=== PATIENT | female | born 1940 | race Caucasian/White ===

== ENCOUNTER 2019-04-03 21:56 | Inpatient (IN) | payer MEDICARE, OTHER ==
[~2019-04-03] VITALS: Ht 162.6 cm; Wt 72.6 kg
--- NOTE | 2019-04-03 22:05 | NUR ---
ED Nurse Note: PT WALKED TO ED C/O BCIR MALFUNCTION [id number]. PT STATES SHE HAD FOSTER INSERTED INTO THE BCIR BY A PHYSICIAN IN [place] WHERE SHE CAME FROM. PT REPORTS LAST DRAINING BCIR WITH LIGHT BROWN LIQUID, YESTERDAY AT AROUND NOON. PT REPORTS NO PAIN. PT DOES NOT PRESENT WITH FEVER, NO REDNESS OR IRRITATION AROUND THE SITE.
--- NOTE | 2019-04-03 22:15 | NUR ---
ED Nurse Note: IV ESTABLISHED ON LEFT AC WITH 20G. BLOOD DRAWN AND SENT TO LAB WITH URINE. LINE PATENT AND INTACT.
--- NOTE | 2019-04-03 22:41 | Emergency Room Report ---
History of Present Illness General Chief Complaint: Gastrointestinal Illness Source: Patient Present Illness HPI This is a 78-year-old female with a history of a BCIR surgery done by Dr. Lebron about 25 years ago. She has no problems since then. She presents with chief complaint of problem intubating her Bravo pouch for last 2 weeks. Her naval aircrewman placed a 24 Czech Horne in it. She was recommended to come here to see Dr. Fry for revision. She has no pain. She does have some fullness. No fever chills but no nausea no vomiting. No trauma. No other complaint. Allergies: Coded Allergies: No Known Allergies (Unverified , 04/03/19) Patient History Past Medical History: see triage record, old chart reviewed, other Past Surgical History: other Pertinent Family History: none Social History: Denies: drug use Now: No Immunizations: other Reviewed Nursing Documentation: PMH: Agreed; PSxH: Agreed Review of Systems Eye: Denies: eye pain, blurred vision ENT: Denies: ear pain, nose congestion, throat swelling Respiratory: Denies: cough, shortness of breath Cardiovascular: Denies: chest pain, palpitations Gastrointestinal: Denies: abdominal pain, diarrhea, nausea, vomiting Musculoskeletal: Denies: back pain, joint pain Skin: Denies: rash Neurological: Denies: headache, numbness Endocrine: Denies: increased thirst, increased urine Hematologic/Lymphatic: Denies: easy bruising All Other Systems: negative except mentioned in HPI Physical Exam Vital Signs Date Time Temp Pulse Resp B/P (MAP) Pulse Ox O2 Delivery O2 Flow Rate FiO2 04/03/19 22:00 97.9 93 16 147/96 (113) 97 Room Air Vitals unremarkable Sp02 EP Interpretation: reviewed, normal General Appearance: well appearing, no apparent distress, alert Head: normocephalic, atraumatic Eyes: bilateral eye PERRL, bilateral eye EOMI ENT: hearing grossly normal, normal pharynx Neck: full range of motion, supple, no meningismus Respiratory: chest non-tender, lungs clear, normal breath sounds Cardiovascular #1: regular rate, rhythm, no murmur Gastrointestinal: normal bowel sounds, non tender, no mass, no organomegaly, no bruit, non-distended Musculoskeletal: back normal, normal range of motion, gait/station normal Psychiatric: mood/affect normal Medical Decision Making Diagnostic Impression: Primary Impression: Ileostomy dysfunction ER Course Patient presents with malfunction BCIR. No evidence of any abscess. Vitals otherwise stable. I discussed the case with Dr. Fry who will admit the patient. Last Vital Signs Date Time Temp Pulse Resp B/P (MAP) Pulse Ox O2 Delivery O2 Flow Rate FiO2 04/03/19 22:00 97.9 93 16 147/96 (113) 97 Room Air Status: unchanged Disposition: ADMITTED INPATIENT Condition: Serious Koffi Godinez MD Apr 03, 2019 22:41
[2019-04-03 22:59] VITALS: BP 136/84
[2019-04-03 23:24] LABS: BASOPHILS % (AUTO) 1.3 % (0.0-2.0); EOSINOPHILS % (AUTO) 2.7 % (0.0-3.0); HEMATOCRIT 44.2 % (37.0-47.0); LYMPHOCYTES % (AUTO) 19.5 % (20.0-45.0); MEAN CORPUSCULAR VOLUME 87 FL (80-99); MONOCYTES % (AUTO) 8.4 % (1.0-10.0); NEUTROPHILS % (AUTO) 68.2 % (45.0-75.0); PLATELET COUNT 278 K/UL (150-450); RED BLOOD COUNT 5.09 M/UL (4.20-5.40); RED CELL DISTRIBUTION WIDTH 11.5 % (11.6-14.8); WHITE BLOOD COUNT 8.9 K/UL (4.8-10.8)
[2019-04-03 23:28] LABS: APPEARANCE,URINE SLIGHTLY CLOUDY; BILIRUBIN, URINE NEGATIVE (NEGATIVE); COLOR,URINE BROWN; GLUCOSE, URINE (UA) NEGATIVE (NEGATIVE); KETONES,URINE 2+ (NEGATIVE); LEUKOCYTE ESTERASE ,URINE 3+ (NEGATIVE); NITRITE,URINE POSITIVE (NEGATIVE); PH,URINE 5 (4.5-8.0); PROTEIN,URINE 1+ (NEGATIVE); UROBILINOGEN,URINE 1 MG/DL (0.0-1.0)
--- NOTE | 2019-04-03 23:30 | NUR ---
ED Nurse Note: GAVE REPORT TO LINDA KAPLAN FOR 304-1
--- NOTE | 2019-04-03 23:30 | NUR ---
Mark bravo in EDM - 04/03/19 at 2824 by [email or web address] ED Nurse Note: GAVE REPORT TO LINDA KAPLAN FOR 314-2
--- NOTE | 2019-04-03 23:30 | NUR ---
NURSE NOTES: Received report from EUSEBIO Dleacruz. Pt arrived in the unit via [place] at 2359. Pt is awake, lying semi-raygoza's; comfortably resting. AOx4; able to make needs known. Checked IV site, line, and rate; patent and running. No erythema, bleeding, or infiltration noted. Belongings arrived with pt. at bedside. Pt oriented with the room. Bed at lowest position. Brakes on. Siderails up x2. Call light within reach. Will continue to monitor.
[2019-04-03 23:38] LABS: INR 1.1 (0.9-1.1)
[2019-04-03 23:41] LABS: ANION GAP 10 mmol/L (5-15); BLOOD UREA NITROGEN 12 mg/dL (7-18); CALCIUM 9.1 MG/DL (8.5-10.1); CARBON DIOXIDE 26 MMOL/L (21-32); CHLORIDE 106 MMOL/L (98-107); CREATININE 0.9 MG/DL (0.55-1.30); POTASSIUM 3.8 MMOL/L (3.5-5.1); SODIUM 142 MMOL/L (136-145)
[2019-04-03 23:45] LABS: ALANINE AMINOTRANSFERASE 33 U/L (12-78); ALBUMIN 3.5 G/DL (3.4-5.0); ALBUMIN/GLOBULIN RATIO 1.2 (1.0-2.7); ALKALINE PHOSPHATASE 79 U/L (46-116); ASPARTATE AMINO TRANSFERASE 26 U/L (15-37); BILIRUBIN,TOTAL 0.5 MG/DL (0.2-1.0)
[2019-04-03] MEDS ORDERED: cefTRIAXone 1 GM in D5W 55 ML IVPB ONE (23:45)
--- NOTE | 2019-04-03 23:55 | NUR ---
TRANSFER TO FLOOR: Patient transferred to [facility] via gurney accompanied by marcosn manuel in stable condition as ordered, per dr. York. Report given to Felicita KAPLAN. Belongings sent with patient
[2019-04-04] VITALS (7 sets, daily range): BP systolic 111–150; BP diastolic 60–80
[2019-04-04] MEDS: D5 1/2NS w/KCl 20mEq 1,000 ML IV SCH ×2 (01:33→13:50)
[2019-04-04 05:53] LABS: BASOPHILS % (AUTO) 1.2 % (0.0-2.0); EOSINOPHILS % (AUTO) 2.7 % (0.0-3.0); HEMATOCRIT 39.5 % (37.0-47.0); HEMOGLOBIN 13.8 G/DL (12.0-16.0); MEAN CORPUSCULAR VOLUME 87 FL (80-99); MONOCYTES % (AUTO) 8.7 % (1.0-10.0); NEUTROPHILS % (AUTO) 66.4 % (45.0-75.0); PLATELET COUNT 231 K/UL (150-450); RED BLOOD COUNT 4.54 M/UL (4.20-5.40); RED CELL DISTRIBUTION WIDTH 11.8 % (11.6-14.8); WHITE BLOOD COUNT 8.2 K/UL (4.8-10.8)
[2019-04-04 06:17] LABS: ALANINE AMINOTRANSFERASE 25 U/L (12-78); ALBUMIN 2.9 G/DL (3.4-5.0); ALBUMIN/GLOBULIN RATIO 1.1 (1.0-2.7); ALKALINE PHOSPHATASE 61 U/L (46-116); ANION GAP 7 mmol/L (5-15); ASPARTATE AMINO TRANSFERASE 24 U/L (15-37); BILIRUBIN,TOTAL 0.3 MG/DL (0.2-1.0); BLOOD UREA NITROGEN 7 mg/dL (7-18); CALCIUM 8.8 MG/DL (8.5-10.1); CARBON DIOXIDE 26 MMOL/L (21-32); CHLORIDE 110 MMOL/L (98-107); CREATININE 0.7 MG/DL (0.55-1.30); POTASSIUM 3.9 MMOL/L (3.5-5.1); SODIUM 143 MMOL/L (136-145)
[2019-04-04 07:00] LABS: INR 1.1 (0.9-1.1)
[2019-04-04] MEDS ORDERED: XARELTO10 MG ORAL (07:00)
--- NOTE | 2019-04-04 07:48 | NUR ---
HAND-OFF: Report given to EUSEBIO Morris. Pt is awake and in stable condition. Plan of care endorsed.
--- NOTE | 2019-04-04 07:53 | NUR ---
NURSE NOTES: Patient is in bed awake and able to verbalize needs. Stable. Denies pain or SOB. Breathing is even and unlabored. Patient encouraged to use call light for assistance, verbalized understanding. Ileo draining to bag, will flush q3h and will monitor I&O. Skin is c/d/i. Urine sample sent to lab. Patient is in bed in locked and lowest position with call light within reach. All needs met at this time. WIll continue to monitor.
[2019-04-04 08:43] LABS: APPEARANCE,URINE CLEAR; BILIRUBIN, URINE NEGATIVE (NEGATIVE); COLOR,URINE PALE YELLOW; GLUCOSE, URINE (UA) NEGATIVE (NEGATIVE); KETONES,URINE NEGATIVE (NEGATIVE); LEUKOCYTE ESTERASE ,URINE 1+ (NEGATIVE); NITRITE,URINE NEGATIVE (NEGATIVE); PH,URINE 5 (4.5-8.0); PROTEIN,URINE NEGATIVE (NEGATIVE); UROBILINOGEN,URINE NORMAL MG/DL (0.0-1.0)
[2019-04-04] MEDS: Heparin 5000 units/ml inj SUBQ SCH ×2 (10:26→20:21)
--- NOTE | 2019-04-04 10:26 | General Progress Note ---
Progress Note Progress Note H&P dictated. Admitted from ED last night with malfunctioning Bravo pouch with inability to intubate and some incontinence.. In local hospital in [place] 24 Fr red long inserted and draining stool. She usually intubates 2-3x daily with 30Fr Ann catheter History of Ulcerative Colitis, proctocolectomy, Bravo pouch since 1993. Also history of DVT left leg and IVC filter 10 years ago, anticoagulated ever since lately on Xarelto - last dose 04/01/2019 Also history of left upper lobectomy 2014 for non-small cell lung cancer, now with right lung nodule with needle biopsy 2 weeks ago revealing lung cancer ( had pneumothorax with chest tube removed several days ago). Abdomen soft, non-distended, left paramedial scar, BCIR stoma low in RLQ, no herniae Chronic left leg swelling with recent Duplex showing old clot Imp: Malfunctioning Bravo continent ileostomy with inability to intubate Plan: Schedule for Bravo pouch endoscopy tomorrow Bravo pouch catheter to continuous gravity drainage flush q3h and prn clear liquid diet today Pulmonary evaluation pre-op revision of Bravo pouch Blair York MD Apr 04, 2019 10:26
--- NOTE | 2019-04-04 13:00 | NUR ---
NURSE NOTES: Patient tolerated clear liquid diet. No c/o abdominal pain or discomfort.
--- NOTE | 2019-04-04 18:15 | Consultation ---
DATE OF CONSULTATION: 04/04/2019 PULMONARY CONSULTATION CONSULTING PHYSICIAN: Dk Summers M.D. HISTORY OF PRESENT ILLNESS: This is a very pleasant 78-year-old female who has just arrived to the hospital due to issues with her Bravo pouch. Apparently, she was having difficulty with cannulating it. She was admitted to outside hospital where after endoscopy this was performed. She was decompressed. However, she flew into [place] to have this surgically addressed by Dr. Blair York. The patient has a complicated past history of ulcerative colitis and proctocolectomy. She also has a history of tuf-rhkaz-xxyi carcinoma, status post left upper lobectomy on . She has recently also been found to have a right lung carcinoma due to the finding of a right lung nodule. This was complicated by a pneumothorax with chest tube removal several days ago after needle biopsy. The plans were for surgical resection as this was a stage IB process. The patient reports also that she had a DVT 10 years ago. This was after a flight from [place]. She then failed anticoagulation with Coumadin and had another blood clot in the same left lower extremity. At this time, there was also a pulmonary embolism. An IVC filter was placed and she remained on anticoagulation; however, recently has been switched to the newer novel oral anticoagulants like Xarelto. She has now been off Xarelto now due to issues with her Bravo pouch. PAST MEDICAL HISTORY: Notable for: 1. Ulcerative colitis. 2. Proctocolectomy. 3. Bravo pouch. 4. Left lower extremity DVT, on chronic anticoagulation with Xarelto. 5. History of pulmonary embolism. 6. IVC filter. 7. Left upper lobectomy for CA lung. 8. New right lung nodule diagnosed to be carcinoma. HOME MEDICATIONS/CURRENT MEDICATIONS: Include Rocephin, IV fluids, subcutaneous heparin, and Zofran. ALLERGIES: None noted previously discussed above. PHYSICAL EXAMINATION: GENERAL: Reveals a 78-year-old female. HEENT: Unremarkable. CHEST: Clear breath sounds bilaterally with normal heart sounds. ABDOMEN: Surgical sites are noted. Abdomen is soft. EXTREMITIES: There is 1+ edema over the left lower extremity. VITAL SIGNS: Blood pressure 120/70, heart rate 84, respirations , afebrile. LABORATORY DATA: Lab testing shows a normal CBC and BMP with a glucose of 131. Urinalysis negative, yesterday showed pyuria. Coags are negative. IMAGING STUDIES: None obtained. IMPRESSION: 1. 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 2. History of pulmonary embolism. 3. History of IVC filter. 4. Chronic anticoagulation with Xarelto. 5. History of proctocolectomy. 6. Ulcerative colitis. 7. Bravo pouch with recent issues intubation. 8. History of left lung carcinoma, status post lobectomy. 9. History of recently diagnosed right lung carcinoma, scheduled for resection stage IB. DISCUSSION: The patient is slated for laparotomy for repair of Bravo pouch. At this time, given the presence of her IVC filter, I would advocate not initiating any anticoagulation in anticipation of surgery. DVT prophylaxis with subcutaneous heparin is appropriate. We will request a new venous duplex left lower extremity. Discussed with Dr. York. We will follow as security assurance specialist. She will be scheduled for right lung surgery after her current GI issues resolve, which is appropriate. We will continue to follow as security assurance specialist. Thank you for the consultation. Dk Summers M.D. DR: ARON JOB#: [id number] CC:
--- NOTE | 2019-04-04 18:43 | NUR ---
NURSE NOTES: true ileo: 420cc dark brown liquid output. UO: 1000cc yellow urine. No c/o pain during shift. No c/o nausea or vomiting.
--- NOTE | 2019-04-04 19:22 | NUR ---
HAND-OFF: Report given to Vanda KAPLAN. patient is stable.
--- NOTE | 2019-04-04 19:41 | NUR ---
NURSES NOTE: Pt in bed, A/OX4, at bedside. Patient denies pain currently. No outward s/s of distress noted. Breathing pattern is even and unlabored on RA. Ileo, RLQ, patent, draining to gravity. IV JARED intact, infusing IVF without incident. All due meds will be given. Bed at lowest level, call light within reach. Patient will continue to be monitored.
--- NOTE | 2019-04-05 | Pre-op HX & Phy Repo 2 SIG ---
DATE OF ADMISSION from EMERGENGY DEPARTMENT : 04/03/2019 HISTORY OF PRESENT ILLNESS: The patient admitted with a malfunctioning Bravo continent ileostomy and inability to intubate her pouch to evacuate stool. The patient is a 78-year-old female in overall stable health, who had an original diagnosis of ulcerative colitis and many years ago underwent proctocolectomy and then creation of a Bravo continent ileostomy. All the operations will be listed at the end of this dictation. The patient usually intubates her pouch two to three times a day using a 30-Slovak Ann catheter. She has had rare episodes of pouchitis treated with Cipro or Flagyl. In the past week, the patient had sudden inability to catheterize her pouch. She required admission locally where she lives in [place], underwent two pouch endoscopies and finally a 24-Slovak red Wood catheter was inserted and taped in place. She then came here on an emergency basis because there is no treating physician near her with expertise in the Bravo continent ileostomy procedure. The patient has gone several days without being able to catheterize and during that time she has had some incontinence of stool and gas. PAST MEDICAL HISTORY: MEDICATIONS: Xarelto. ALLERGIES: None. OPERATIONS: 1. Abdominal colectomy with Madison ileostomy and total abdominal hysterectomy in 1983. 2. Abdominoperineal proctectomy in 1985. 3. Bravo continent ileostomy in 1993. 4. Left total knee replacement 1999. 5. Left lower lobectomy for non-small cell carcinoma of the lung 2014. 6. Needle biopsy of right upper lobe lung lesion two weeks ago with resulting pneumothorax and chest tube insertion with findings of stage IB carcinoma of the lung. REVIEW OF SYSTEMS: In 2009, the patient developed deep vein thrombosis of the left leg following a prolonged airplane flight and required an placement of inferior vena cava filter. She was anticoagulated with Coumadin and then later Xarelto and has been on anticoagulation continuously for the past 10 years. She has mild chronic post-phlebitic changes in the left leg. . PHYSICAL EXAMINATION: GENERAL: The patient is 5 feet 5 inches, 145 pounds. VITAL SIGNS: Within normal limits . HEENT: Within normal limits. LUNGS: Clear. HEART: Regular rhythm. BREASTS: Without masses. ABDOMEN: Soft with a long left paramedian scar. The stoma of her Bravo pouch is low in the right lower quadrant with a small 24-Slovak catheter in place, connected to a drainage bag. There is an incisional hernia just above the umbilicus. PELVIC: By primary care physicians recently, status post hysterectomy. RECTAL: Status post proctectomy. EXTREMITIES: Mild chronic edema of the left lower extremity. Pulses 2+ femoral to pedal bilaterally. NEUROLOGIC: Physiologic. ADDITIONAL INFORMATION: The patient's urinalysis reveals an obvious urinary tract infection. Culture was sent. The patient received 1 gram of Rocephin IV in the emergency room. Her albumin is 2.9, indicating malnutrition. IMPRESSION: 1. Malfunctioning Bravo continent ileostomy with inability to catheterize resulting in bowel obstruction. 2. History of ulcerative colitis. 3. 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 4. History of ulcerative colitis. 5. Urinary tract infection on admission . 6. Status post left total knee replacement. 7. STATUS POST MULTIPLE ABDOMINAL OPERATIONS: 1. Abdominal colectomy and Madison ileostomy and total abdominal hysterectomy in 1983. 2. Abdominoperineal proctectomy in 1985. 3. Bravo continent ileostomy in 1993. 8. History of non-small cell carcinoma left lung and left upper lobectomy 2014 9. Recent diagnosis of right upper lobe lung carcinoma, stage IB. PLAN: The patient will have her catheter placed to continuous drainage and she will be prepared for a Bravo pouch endoscopy. She will then need to undergo surgical correction of whatever the underlying cause is of her inability to catheterize. I have discussed this in detail with the patient and her . They understands and agreed to proceed. I will have pulmonary consultation regarding her lung condition and her anticoagulation. The Xarelto was last taken 4 days ago and will be held because of pending surgery. She will be given heparin 5000 units subcutaneous every 12 hours. Blair York M.D. DR: Josefa JOB#: [id number] CC: VIVIANE
[2019-04-05] MEDS: D5 1/2NS w/KCl 20mEq 1,000 ML IV SCH ×2 (03:30→15:46)
[2019-04-05 04:00] VITALS: BP 135/69
[2019-04-05] MEDS ORDERED: Heparin1,000 units/500ml Premix(Conc:2 units/ml) ONE (07:00)
[2019-04-05] MEDS ORDERED: Lidocaine 1% Plain 30 ml INJ ONE (07:00)
--- NOTE | 2019-04-05 07:30 | NUR ---
NURSE NOTES: Patient is in bed awake and able to verbalize needs. Stable. Denies pain or SOB. Venous duplex is being done at bedside. Will continue to monitor.
--- NOTE | 2019-04-05 07:44 | NUR ---
LEXA SPRING: Report given to EUSEBIO Morris. Patient in stable condition.
[2019-04-05] MEDS ORDERED: Lidocaine 1% Plain 30 ml INJ PRN (07:45)
[2019-04-05] MEDS ORDERED: Heparin1,000 units/500ml Premix(Conc:2 units/ml) IV PRN (07:45)
[2019-04-05 08:00] VITALS: BP 140/71
[2019-04-05] MEDS: Heparin 5000 units/ml inj SUBQ SCH ×2 (08:58→20:37)
--- NOTE | 2019-04-05 09:40 | NUR ---
NURSE NOTES: Venous duplex results reported to Dr. York. Per Dr. York, Dr. Summers is aware and will give new orders as necessary. Patient is stable, no SOB or chest pain noted at this time. Andrei legs elevated. Will continue to monitor.
--- NOTE | 2019-04-05 10:45 | NUR ---
NURSE NOTES: Patient taken for cxr via wheelchair.
--- NOTE | 2019-04-05 11:33 | Pre-Procedure Note/Attestation ---
Pre-Procedure Note/Attestation Complete Prior to Procedure Planned Procedure: not applicable Procedure Narrative: Bravo continent ileostomy pouch endoscopy Indications for Procedure Pre-Operative Diagnosis: malfunctioning Bravo continent ileostomy with inability to intubate Attestation I attest that I discussed the nature of the procedure; its benefits; risks and complications; and alternatives (and the risks and benefits of such alternatives ), prior to the procedure, with the patient (or the patient's legal surgical device sales representative). I attest that, if there was a reasonable possibility of needing a blood transfusion, the patient (or the patient's legal surgical device sales representative) was given the [facility] standardized written summary, pursuant to the Anastacio Merrillan Blood Safety Act ([place] Health and Safety Code # 1645, as amended). I attest that I re-evaluated the patient just prior to the surgery and that there has been no change in the patient's H&P, except as documented below: none Blair York MD Apr 05, 2019 11:33
--- NOTE | 2019-04-05 11:51 | Diagnostic Imaging Report ---
Indication:Leg pain and swelling Technique: Grayscale and duplex Doppler imaging of the veins in both lower extremities performed in real time utilizing compression and augmentation. Comparison: None Findings: There is evidence of noncompressibility of the popliteal vein bilaterally consistent with thrombosis. Duplex Doppler interrogation of the veins in both lower extremities otherwise shows normal venous compressibility. No thrombus identified otherwise. Waveform analysis shows good respiratory phasicity and augmentation. IMPRESSION: Positive study. Acute thrombosis of popliteal vein bilaterally
[2019-04-05 12:00] VITALS: BP 118/76
--- NOTE | 2019-04-05 12:30 | NUR ---
RADIOLOGY DEPT., CHEST X-RAY COMPLETED.-P.DYE
--- NOTE | 2019-04-05 13:54 | Diagnostic Imaging Report ---
Indication: Cough. History of the recent right pneumothorax after biopsy of a upper lobe lung mass. History of partial left lobectomy. Comparison: None 2 views of the chest obtained. Findings: No pneumothorax seen currently. There is a nodular ill-defined opacity in the right upper lobe corresponding to the history of a lung mass. On the left there are sutures in the medial part of the lung consistent with previous lobectomy. The left hemidiaphragm is obscured by pleural tenting and blunting of the costophrenic angle. A pleural effusion is not excludable on the left although the findings could be chronic and due to pleural thickening. The lungs may be slightly hyperexpanded. Heart size is normal. No compelling evidence for infiltrate or consolidation. No evidence of pulmonary edema. Aorta is calcified and mildly ectatic. Trace amount of air noted in the right chest wall consistent with the given history of recent chest tube placement. Generalized osteopenia noted. Multilevel vertebral endplate enthesophytes demonstrated throughout the thoracic spine. IMPRESSION: No compelling evidence of pneumonia, CHF or other acute process. Small left pleural effusion is not excludable although the findings could be due to pleural thickening as the patient has had prior left thoracotomy/partial lobectomy. Status post recent biopsy of a right upper lobe lung mass. No pneumothorax. Osteoporosis. Atherosclerotic vascular disease Degenerative changes of the thoracic spine Findings reviewed and discussed with Dr. Blair York
--- NOTE | 2019-04-05 14:15 | Brief Operative Note ---
Immediate Post Operative Note Operative Note Pre-op Diagnosis: malfunctioning Bravo continent ileostomy with inability to intubate Procedure: Bravo pouch endoscopy Post-op Diagnosis: slipped valve of Bravo pouch Post-op Diagnosis: same as pre-op Findings: consistent w/pre-op dx studies Surgeon: connie Anesthesia: other - none Specimen: none Complications: none Condition: stable Fluids: none Estimated Blood Loss: none Drains: other - 24 Fr Horne to Bravo pouch Implant(s) used?: No Blair York MD Apr 05, 2019 14:15
--- NOTE | 2019-04-05 14:18 | General Progress Note ---
Progress Note Progress Note AVSS Duplex scanj reveals bilateral popliteal vein thrombus. Seen by Dr. Summers - since there is IVC filter will continue SQ heparin until able to resume Xarelto post-op Abdomen soft, incisional hernia just above umbilicus Bravo pouch endoscopy reveals desussception of the nipple valve, normal pouch Imp: Bravo pouch slipped valve Malnutrition present on admission (albumin 2.9) Plan: Prepare for surgery on 04/08 TPN continuous drainage of Bravo Pouch Bliar York MD Apr 05, 2019 14:18
--- NOTE | 2019-04-05 15:26 | NUR ---
NURSE NOTES: Patient arrived back on unit via gurney. Assisted back to bed by staff. Patient is stable. C/o headache and anxiety, new orders from Dr. York read back and carried out for tramadol and xanax. PICC line noted on JARED, dressing stained with blood. 24fr genao noted in BCIR, dressing is c/d/i. Patient is in bed in locked and lowest position with call light within reach. All needs met at this time. Will continue to monitor.
--- NOTE | 2019-04-05 15:41 | NUR ---
RADIOLOGY NOTE: LEFT UPPER EXTREMITY PICC LINE PLACEMENT BY DR. JET ELIAS AT 1440 HRS. FA
[2019-04-05] MEDS ORDERED: traMADol 50mg tab ORAL PRN (15:45)
[2019-04-05] MEDS ORDERED: ALPRAZolam 0.5mg tab ORAL PRN (15:45)
--- NOTE | 2019-04-05 15:57 | Diagnostic Imaging Report ---
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 The left upper extremity was prepped with alcohol. All elements of maximal sterile barrier technique were followed including usage of a cap, mask, sterile gown, sterile gloves, hand hygiene and a large sterile sheet. Sonographic evaluation of the upper extremity was performed demonstrating a patent and compressible basilic vein. Access was obtained under real-time ultrasound guidance (with utilization of sterile gel and sterile probe cover) and digital image was saved and archived. An .018 wire was introduced. Needle exchanged for a 5 Taiwanese peel-away sheath. Measurements were obtained. A 5 Taiwanese dual-lumen Power PICC line catheter was cut to 40 cm and introduced over the wire. Initial attempts at passing the catheter over the wire were unsuccessful. A 4 Taiwanese Kumpe catheter was then advanced over the wire. Contrast was injected and a central venogram was performed utilizing digital subtraction. A markedly tortuous left innominate vein was noted. The Kumpe catheter was utilized to associate the wire into the SVC. Catheter was then removed and exchanged for the PICC line. Peel-away sheath and wire were removed.Catheter was secured to the skin using 2-0 Prolene suture. Both ports aspirate and flush easily. A single fluoroscopic image shows the distal tip in the superior vena cava. Total fluoroscopic time: 448 seconds. Impression: Successful placement of an upper extremity PICC line catheter
[2019-04-05 16:00] VITALS: BP 134/83
--- NOTE | 2019-04-05 16:03 | Pulmonology Progress Note ---
Assessment/Plan Assessment/Plan IMPRESSION: 1. 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 2. History of pulmonary embolism. 3. History of IVC filter. 4. Chronic anticoagulation with Xarelto. 5. History of proctocolectomy. 6. Ulcerative colitis. 7. Bravo pouch with recent issues intubation. 8. History of left lung carcinoma, status post lobectomy. 9. History of recently diagnosed right lung carcinoma, scheduled for resection stage IB. DISCUSSION: The patient is slated for laparotomy for repair of Bravo pouch. At this time, given the presence of her IVC filter, I would advocate not initiating full anticoagulation in anticipation of surgery. DVT prophylaxis with subcutaneous heparin is appropriate. I have reviewed the new venous duplex left lower extremity. Discussed with Dr. York. 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 She will be scheduled for right lung surgery after her current GI issues resolve, which is appropriate. Thank you for the consultation. Dk Summers M.D. Subjective Interval Events: None new Constitutional: Reports: no symptoms HEENT: Repors: no symptoms Respiratory: Reports: no symptoms Cardiovascular: Reports: no symptoms Gastrointestinal/Abdominal: Reports: no symptoms Allergies: Coded Allergies: No Known Allergies (Unverified , 04/03/19) Objective Last 24 Hour Vital Signs Date Time Temp Pulse Resp B/P (MAP) Pulse Ox O2 Delivery O2 Flow Rate FiO2 04/05/19 12:00 97.7 83 18 118/76 (90) 96 04/05/19 09:00 Room Air 04/05/19 08:00 98.4 85 19 140/71 (94) 98 04/05/19 04:00 98.3 76 18 135/69 (91) 96 04/04/19 23:48 98.2 74 18 111/62 (78) 95 04/04/19 21:00 Room Air 04/04/19 20:00 98.2 80 17 131/62 (85) 96 Intake and Output 04/04/19 04/05/19 19:00 07:00 Intake Total 525 ml Output Total 1420 ml 920 ml Balance -895 ml -920 ml IV Total 525 ml Output Urine Total 1000 ml 800 ml Other 420 ml 120 ml # Voids 3 General Appearance: no acute distress HEENT: normocephalic Respiratory/Chest: chest wall non-tender Cardiovascular: normal peripheral pulses Abdomen: normal bowel sounds Microbiology Date/Time Source Procedure Growth Status 04/03/19 22:20 Urine,Clean Catch Urine Culture - Preliminary NO GROWTH AFTER 24 HOURS Resulted Current Medications Medications (Trade) Dose Ordered Sig/Jayshree Route PRN Reason Start Time Stop Time Status Last Admin Dose Admin Alprazolam (Xanax) 0.5 mg Q6H PRN ORAL For Anxiety 04/05/19 15:45 04/12/19 15:44 Amino Acids/ Electrolytes/ Dextrose 2,000 ml @ 83 mls/hr Q24H IV 04/05/19 21:00 05/05/19 20:59 UNV Chlorhexidine Gluconate (Michelle-Hex 2%) 1 applic DAILY@2000 TOPIC 04/05/19 20:00 05/05/19 19:59 Dextrose 1,000 ml @ 0 mls/hr Q24H PRN IV PN interrupted or unavailable 04/05/19 13:45 05/05/19 13:44 UNV Dextrose (Dextrose 50%) 25 ml Q30M PRN IV Hypoglycemia 04/05/19 13:45 05/05/19 13:44 UNV Dextrose (Dextrose 50%) 50 ml Q30M PRN IV Hypoglycemia 04/05/19 13:45 05/05/19 13:44 UNV Dextrose/ Electrolytes 1,000 ml @ 75 mls/hr [id number] IV 04/04/19 00:00 05/04/19 00:00 04/05/19 15:46 Fat Emulsion Intravenous 250 ml @ 10.4 mls/hr Q24H IV 04/05/19 21:00 05/05/19 20:59 UNV Heparin Sodium (Porcine) (Heparin 5000 units/ml) 5,000 units EVERY 12 HOURS SUBQ 04/04/19 10:15 05/04/19 10:14 04/05/19 08:58 Heparin Sodium/ Sodium Chloride (Heparin 1000 units/500ml Premix) 1,000 unit ONCE PRN IV PICC LINE 04/05/19 07:45 04/07/19 18:00 Insulin Aspart (NovoLOG) Q6HR SUBQ 04/06/19 00:00 05/06/19 00:00 UNV Lidocaine HCl (Xylocaine 1% 30ml) 30 ml ONCE PRN INJ PICC LINE 04/05/19 07:45 04/07/19 18:00 Ondansetron HCl (Zofran) 4 mg Q4HR PRN IVP Nausea & Vomiting 04/03/19 23:45 05/03/19 23:44 Phytonadione (Vitamin K) 10 mg ONCE A WEEK SUBQ 04/05/19 13:45 05/05/19 13:44 UNV Tramadol HCl (Ultram) 50 mg Q4H PRN ORAL pain or headache 04/05/19 15:45 04/12/19 15:44 04/05/19 15:40 Dk Summers MD Apr 05, 2019 16:02
--- NOTE | 2019-04-05 16:48 | NUR ---
CASE MANAGEMENT: INITIAL REVIEW 78YR OLD MALE FROM HOME CC: GASTROINTESTINAL ILLNESS SI:ILEOSTOMY DYSFUNCTION . MALFUNCTION MARTINEZ POUCH 97.8 93 16 147/96 97% ON RA PT 11.6 BG 122 IS:IVF NS BOLUS X1 IV ROCEPHIN X1 \: 3E MED SURG UNIT CASE MANAGEMENT: REVIEW 04/04/19 SI:ILEOSTOMY DYSFUNCTION . MALFUNCTION MARTINEZ POUCH 97.6 77 18 127/69 97% ON RA CL-110 BG 131 IS:IV D5@75ML/HR HEPARIN SQ BID ULTRAM Q4HR/PRN \: 3E MED SURG UNIT PLAN: MARTINEZ POUCH ENDOSCOPY IN AM MARTINEZ POUCH CATHETER TO CONTINUOUS GRAVITY DRAINAGE FLUSH Q3HR AND PRN CLEAT LIQ DIET TODAY PULMONARY EVAL PRE OP REVISION OF MARTINEZ POUCH CASE MANAGEMENT: REVIEW 04/05/19 SI:ILEOSTOMY DYSFUNCTION . MALFUNCTION MARTINEZ POUCH 98.4 85 19 140/71 98% ON RA IS:IV D5@75ML/HR HEPARIN SQ BID ULTRAM Q4HR/PRN \: 3E MED SURG UNIT PLAN: SURG 04/08/19 START TPN MARTINEZ POUCH ENDOSCOPY TODAY CONTINUOUS DRAINAGE OF MARTINEZ POUCH Addendum: 04/06/19 at 1332 by JUAN C ARAUZ LVN INTERQUAL
--- NOTE | 2019-04-05 18:30 | Procedure Note ---
DATE OF PROCEDURE: 04/05/2019 ENDOSCOPY PROCEDURE REPORT ENDOSCOPIST: Blair York M.D. ANESTHESIA: None. SEDATION: None. PRE-ENDOSCOPY DIAGNOSES: 1. 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 2. History of ulcerative colitis, status post proctocolectomy followed Bravo continent ileostomy. POST-ENDOSCOPY DIAGNOSES: 1. 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 2. History of ulcerative colitis, status post proctocolectomy followed Bravo continent ileostomy. ENDOSCOPY PERFORMED: Bravo continent ileostomy pouch endoscopy FINDINGS: Dessusception of nipple valve. DESCRIPTION OF PROCEDURE: The patient was positioned supine in the GI lab without any anesthesia or sedation given or required. Using a GIF-P140 endoscope, the stoma was entered. There were several marked angulations within the valve segment until the pouch was finally entered. The pouch was normal without any sign of inflammation. Retroflexed views revealed a partially slipped valve. Withdrawal views confirmed the above findings. After removing the endoscope, I was not able to insert a 28-Bangladeshi or 26-Bangladeshi Horne into the pouch, but did insert a 24-Bangladeshi Horne to drainage. The patient will be prepared for surgical revision including laparotomy and possible creation of a new valve and stoma with preservation of the existing Bravo continent ileostomy pouch. She tolerated the endoscopy well. Blair York M.D. DR: EVARISTO JOB#: [id number] CC: VIVIANE
--- NOTE | 2019-04-05 19:00 | NUR ---
NURSE NOTES: True ileo: 660cc dark brown output. UO: 725cc yellow urine. Patient was reminded of updated plan of care after endoscopy but patient and patient's are requesting to know more details. Patient's made aware that Dr. York will be able to answer his questions for him. RN addressed as many questions and concerns as possible. RN reassured patient and that Dr. York is available via office number or in person tomorrow if needed.
--- NOTE | 2019-04-05 19:30 | NUR ---
NURSE NOTES: Receive a report from EUSEBIO Morris. Round is done. Pt is awake and alert. No acute distress noted. Denies any pain. PICC site is clear with patch inside. No discoloration noted. L/E non-pitting edema noted and no pain noted. Heparin q 12hr for DVT. No bleeding signs noted. Ileostomy is drained with brownish drainage in natural gravity and q3hr flushing. Dressing site kept dry and clean. Using bedside comode and provide fall precautions. Call light within reach. Will continue to monitor.
--- NOTE | 2019-04-05 19:30 | NUR ---
HAND-OFF: Report given to Berto RN. Patient is stable.
[2019-04-05 20:00] VITALS: BP 114/67
[2019-04-05] MEDS ORDERED: Dextrose 10% 1,000 ML IV PRN (20:00)
[2019-04-05] MEDS: Dyna-Hex 2% Top Sol 2oz TOPIC SCH (20:36)
[2019-04-05] MEDS ORDERED: Fat Emulsion Iv 20% 250 ML IV SCH (21:00)
[2019-04-06] VITALS: BP 119/66
[2019-04-06] MEDS: D5 1/2NS w/KCl 20mEq 1,000 ML IV SCH ×2 (03:29→20:22)
[2019-04-06 04:00] VITALS: BP 138/84
--- NOTE | 2019-04-06 06:00 | NUR ---
NURSE NOTES: No abdominal discomfort. Ileostomy is drained with greenish drainage in natural gravity. Will continue to monitor. 12hr output Urine:1100ml Ileostomy: 360ml
--- NOTE | 2019-04-06 07:20 | NUR ---
HAND-OFF: Report given to EUSEBIO Bravo.
[2019-04-06 07:41] LABS: BASOPHILS % (AUTO) 1.2 % (0.0-2.0); EOSINOPHILS % (AUTO) 2.6 % (0.0-3.0); HEMOGLOBIN 13.7 G/DL (12.0-16.0); LYMPHOCYTES % (AUTO) 20.3 % (20.0-45.0); MEAN CORPUSCULAR VOLUME 87 FL (80-99); MONOCYTES % (AUTO) 7.2 % (1.0-10.0); NEUTROPHILS % (AUTO) 68.7 % (45.0-75.0); PLATELET COUNT 186 K/UL (150-450); RED BLOOD COUNT 4.59 M/UL (4.20-5.40); RED CELL DISTRIBUTION WIDTH 11.8 % (11.6-14.8)
--- NOTE | 2019-04-06 07:42 | NUR ---
NURSE NOTES: AWAKE /ALERT. NO C/O PAIN. IN NO APPARENT DISTRESS.
[2019-04-06 07:51] LABS: ALANINE AMINOTRANSFERASE 28 U/L (12-78); ALBUMIN 2.8 G/DL (3.4-5.0); ANION GAP 6 mmol/L (5-15); ASPARTATE AMINO TRANSFERASE 22 U/L (15-37); CALCIUM 8.6 MG/DL (8.5-10.1); CARBON DIOXIDE 25 MMOL/L (21-32); CHLORIDE 111 MMOL/L (98-107); CREATININE 0.6 MG/DL (0.55-1.30); PHOSPHORUS 3.6 MG/DL (2.5-4.9); SODIUM 142 MMOL/L (136-145)
[2019-04-06 07:52] LABS: % IRON SATURATION 38 % (15-50); IRON 78 ug/dL (50-175); TOTAL IRON BINDING CAPACITY 203 ug/dL (250-450)
[2019-04-06 08:00] VITALS: BP 138/77
[2019-04-06] MEDS ORDERED: Omnipaque-300 100ml vial INJ PRN (08:15)
--- NOTE | 2019-04-06 08:24 | General Progress Note ---
Progress Note Progress Note AVSS BCIR ileo catheter draining well Abdomen soft, incisional hernia above umbilicus Urine C&S from ED - no growth, and U/A clear (had 1 dose Rocephin but culture sent before it was given) Iron 78 other labs pending albumin 2.8 Imp: Malfunctioning Bravo Pouch with slipped valve Malnutrition Incisional hernia Plan: CT scan abd+pelvis with po+IV contrast Schedule surgical revision of BCIR TPN Blair Zamudio MD Apr 06, 2019 08:24
[2019-04-06 08:46] LABS: FERRITIN 44 NG/ML (8-388)
[2019-04-06] MEDS: Heparin 5000 units/ml inj SUBQ SCH ×2 (08:48→20:55)
--- NOTE | 2019-04-06 09:00 | NUR ---
NURSE NOTES: left leg cicumference 37cm. rt leg 36cm
[2019-04-06 09:29] LABS: ALKALINE PHOSPHATASE 65 U/L (46-116); BILIRUBIN,TOTAL 0.4 MG/DL (0.2-1.0); BLOOD UREA NITROGEN 3 mg/dL (7-18)
--- NOTE | 2019-04-06 10:08 | NUR ---
RD ASSESSMENT & RECOMMENDATIONS SEE CARE ACTIVITY FOR COMPLETE ASSESSMENT DAILY ESTIMATED NEEDS: Needs based on Surgery 60.5kg adj 25-35 kcals/kg 8147-4398 total kcals 1-2 g protein/kg 61-121 g total protein 25-30 mL/kg 6234-0328 total fluid mLs NUTRITION DIAGNOSIS: Altered GI fxn related BCIR slipped valve as evidenced by s/p endoscopy, findings of dessusception of nipple valve, now w/ pending surgical ileo revision, TPN ordered for anticipated ileus/ NPO status. CURRENT DIET:CLD PARENTERAL NUTRITION RECOMMENDATIONS: D/AA Rate: 70 IL Rate: 8 Total Rate: 78 Volume: 1872 % Dextrose: 19 % AA: 5.4 Energy (kcals/kg): 1832 Protein (g/kg protein): 91 Nonprotein KCALS: 1469 GIR (mg CHO/kg/min): 3.1 % Fat KCALS: 21 NPC: N Ratio: 101:1 TPN Comment: - D19% + AA 5.4% @70ml/hr with IL 20% @8ml/hr-> all 3:1. - Goal rate of 78ml/hr x24 hrs - TPN at goal meets 100% est needs, provides 30 kcal per adj kg and 1.5g/adj kg pro. - GIR <5 - IL <30% ADDITIONAL RECOMMENDATIONS: 1) Obtain a standing weight as able 2) Monitor BG, lytes, LFT's w/ TPN; need for formulary adjustments
[2019-04-06] MEDS ORDERED: Vitamin B12 1000mcg/ml Inj IM SCH (11:30)
--- NOTE | 2019-04-06 11:50 | Pulmonology Progress Note ---
Assessment/Plan Assessment/Plan IMPRESSION: 1. 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 2. History of pulmonary embolism. 3. History of IVC filter. 4. Chronic anticoagulation with Xarelto. 5. History of proctocolectomy. 6. Ulcerative colitis. 7. Bravo pouch with recent issues intubation. 8. History of left lung carcinoma, status post lobectomy. 9. History of recently diagnosed right lung carcinoma, scheduled for resection stage IB. DISCUSSION: The patient is slated for laparotomy for repair of Bravo pouch. At this time, given the presence of her IVC filter, I would advocate not initiating full anticoagulation in anticipation of surgery. DVT prophylaxis with subcutaneous heparin is appropriate. I have reviewed the new venous duplex left lower extremity. Discussed with Dr. York. 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 She will be scheduled for right lung surgery after her current GI issues resolve, which is appropriate. Dk Summers M.D. Subjective Interval Events: None new Constitutional: Reports: no symptoms HEENT: Repors: no symptoms Respiratory: Reports: no symptoms Cardiovascular: Reports: no symptoms Gastrointestinal/Abdominal: Reports: no symptoms Genitourinary: Reports: no symptoms Allergies: Coded Allergies: No Known Allergies (Unverified , 04/03/19) Objective Last 24 Hour Vital Signs Date Time Temp Pulse Resp B/P (MAP) Pulse Ox O2 Delivery O2 Flow Rate FiO2 04/06/19 09:00 Room Air 04/06/19 08:00 98.2 86 16 138/77 (97) 97 04/06/19 04:00 98.4 80 20 138/84 (102) 98 04/06/19 00:00 98.1 75 20 119/66 (83) 98 04/05/19 21:00 Room Air 04/05/19 20:00 97.7 66 20 114/67 (83) 95 04/05/19 16:00 98.0 85 19 134/83 (100) 97 04/05/19 12:00 97.7 83 18 118/76 (90) 96 Intake and Output 04/05/19 04/06/19 19:00 07:00 Intake Total 900 ml Output Total 1385 ml 1460 ml Balance -1385 ml -560 ml IV Total 900 ml Output Urine Total 725 ml 1100 ml Other 660 ml 360 ml General Appearance: no acute distress HEENT: normocephalic Respiratory/Chest: chest wall non-tender, lungs clear Cardiovascular: normal peripheral pulses Abdomen: normal bowel sounds Microbiology Date/Time Source Procedure Growth Status 04/03/19 22:20 Urine,Clean Catch Urine Culture - Final NO GROWTH AFTER 48 HOURS Complete Laboratory Tests 04/06/19 05:30: White Blood Count 7.0, Red Blood Count 4.59, Hemoglobin 13.7, Hematocrit 40.0, Mean Corpuscular Volume 87, Mean Corpuscular Hemoglobin 29.9, Mean Corpuscular Hemoglobin Concent 34.4, Red Cell Distribution Width 11.8, Platelet Count 186, Mean Platelet Volume 5.3L, Neutrophils (%) (Auto) 68.7, Lymphocytes (%) (Auto) 20.3, Monocytes (%) (Auto) 7.2, Eosinophils (%) (Auto) 2.6, Basophils (%) (Auto ) 1.2, Sodium Level 142, Potassium Level 4.0, Chloride Level 111H, Carbon Dioxide Level 25, Anion Gap 6, Blood Urea Nitrogen 3L, Creatinine 0.6, Estimat Glomerular Filtration Rate , Glucose Level 108H, Calcium Level 8.6, Phosphorus Level 3.6, Magnesium Level 1.8, Iron Level 78, Total Iron Binding Capacity 203L , Percent Iron Saturation 38, Unsaturated Iron Binding 125, Ferritin 44, Total Bilirubin 0.4, Aspartate Amino Transf (AST/SGOT) 22, Alanine Aminotransferase ( ALT/SGPT) 28, Alkaline Phosphatase 65, Total Protein 5.6L, Albumin 2.8L, Globulin 2.8, Vitamin B12 Level 291, Folate 19.2 Current Medications Medications (Trade) Dose Ordered Sig/Jayshree Route PRN Reason Start Time Stop Time Status Last Admin Dose Admin Alprazolam (Xanax) 0.5 mg Q6H PRN ORAL For Anxiety 04/05/19 15:45 04/12/19 15:44 Barium Sulfate (Readi-Cat 2) 450 ml NOW PRN ORAL Radiology Procedure 04/06/19 08:15 04/08/19 08:06 Chlorhexidine Gluconate (Michelle-Hex 2%) 1 applic DAILY@1999 TOPIC 04/05/19 20:00 05/05/19 19:59 04/05/19 20:36 Cyanocobalamin (Vitamin B12) 1,000 mcg ONCE IM 04/06/19 11:30 04/06/19 12:30 04/06/19 11:32 Dextrose 1,000 ml @ 0 mls/hr Q24H PRN IV PN interrupted or unavailable 04/05/19 20:00 05/05/19 19:59 Dextrose (Dextrose 50%) 25 ml Q30M PRN IV Hypoglycemia 04/07/19 00:00 05/07/19 00:00 Dextrose (Dextrose 50%) 50 ml Q30M PRN IV Hypoglycemia 04/07/19 00:00 05/07/19 00:00 Dextrose/ Electrolytes 1,000 ml @ 75 mls/hr [id number] IV 04/04/19 00:00 04/06/19 19:59 04/06/19 03:29 Fat Emulsion Intravenous 192 ml/Amino Acids/ Electrolytes/ Dextrose 1,872 ml @ 78 mls/hr Q24H IV 04/07/19 20:00 05/07/19 19:59 Heparin Sodium (Porcine) (Heparin 5000 units/ml) 5,000 units EVERY 12 HOURS SUBQ 04/04/19 10:15 05/04/19 10:14 04/06/19 08:48 Heparin Sodium/ Sodium Chloride (Heparin 1000 units/500ml Premix) 1,000 unit ONCE PRN IV PICC LINE 04/05/19 07:45 04/07/19 18:00 Insulin Aspart (NovoLOG) Q6HR SUBQ 04/07/19 00:00 05/07/19 00:00 Iohexol (OMNIPAQUE-300 100ml) 100 ml NOW PRN INJ Radiology Procedure 04/06/19 08:15 04/08/19 08:06 Iron Sucrose 100 mg/Sodium Chloride 60 ml @ 240 mls/hr BEDTIME IV 04/06/19 21:00 04/10/19 21:14 Lidocaine HCl (Xylocaine 1% 30ml) 30 ml ONCE PRN INJ PICC LINE 04/05/19 07:45 04/07/19 18:00 Ondansetron HCl (Zofran) 4 mg Q4HR PRN IVP Nausea & Vomiting 04/03/19 23:45 05/03/19 23:44 Phytonadione (Vitamin K) 10 mg ONCE A WEEK SUBQ 04/13/19 09:00 05/13/19 08:59 Tramadol HCl (Ultram) 50 mg Q4H PRN ORAL pain or headache 04/05/19 15:45 04/12/19 15:44 04/05/19 15:40 Dk Summers MD Apr 06, 2019 11:50
[2019-04-06 12:00] VITALS: BP 133/76
[2019-04-06] MEDS ORDERED: NS Irrig 1000ml ONE (14:34)
--- NOTE | 2019-04-06 15:06 | Diagnostic Imaging Report ---
Clinical Indication: Abdominal pain, malfunction of continent ileostomy, valve slippage, history of total colectomy, history of lung cancer Technique: Patient given oral contrast. IV administration nonionic contrast. Venous phase spiral acquisition obtained through the abdomen and pelvis. Multiplanar reconstructions were generated. Total dose length product 299 mGycm. CTDIvol(s) 6 mGy. Dose reduction achieved using automated exposure control Comparison: none Findings: Patient is status post total colectomy and continent ileostomy placement. The continent ileostomy extends deep and posterior into the pelvis. It is catheterized, with the catheter tip deep within the reservoir. Patient ingested only a limited amount of contrast, but contrast is seen within the reservoir as well as within the lumen of the catheter. No unusual fluid collections are demonstrated. In addition to the colectomy, there is evidence of a proximal jejunal jejunal anastomosis as well as surgical clips in the left upper quadrant. No significant small bowel distention except for mild distention of small bowel immediately upstream from the ileostomy reservoir. No free intraperitoneal gas. Distal esophagus and stomach are unremarkable. The gallbladder demonstrates trace pericholecystic fluid. It is nondistended and there are no definite gallstones. The liver demonstrates a subcentimeter low-attenuation lesion in segment 8, is otherwise unremarkable. The pancreas, spleen, adrenals are unremarkable. Multiple cysts are seen in the right kidney. Multiple subcentimeter low-attenuation lesions are seen in the left kidney which are too small to characterize. No renal or ureteral calculi, hydronephrosis, or hydroureter. No pelvic mass or adenopathy. The uterus is absent. The bladder is unremarkable. Venous stents extend from the downstream orifice of the left femoral vein into the left common iliac vein. Low-attenuation within the stents suggests they may be occluded, as do fairly extensive lower pelvic wall collaterals.. The included lung bases demonstrate bilateral small pleural effusions, right greater than left. There are atelectatic changes in the inferior lingula. The bones demonstrate degenerative spondylosis changes. Impression: Postsurgical changes, as described, including total colectomy and continent ileostomy. No evidence of bowel obstruction, abscess, or other complication Bilateral right greater than left small pleural effusions Nonspecific trace pericholecystic fluid. Otherwise unremarkable gallbladder. Consider ultrasound if there is clinical concern for gallbladder disease Venous stents in the left iliofemoral venous system. Findings are suspicious for luminal occlusion of the stent Right renal cysts. Subcentimeter left renal lesions, too small to characterize, most likely benign simple cysts. No further follow-up necessary Right lobe liver subcentimeter low-attenuation lesion, too small to characterize, most likely benign simple cysts or bile hamartoma. No further follow-up necessary Other findings as noted, including evidence of prior cholecystectomy, inferior lingular atelectatic changes, degenerative spondylosis The CT scanner at [facility] is accredited by the [employer] and the scans are performed using protocols designed to limit radiation exposure to as low as reasonably achievable to attain images of sufficient resolution adequate for diagnostic evaluation.
[2019-04-06 16:00] VITALS: BP 140/73
--- NOTE | 2019-04-06 19:00 | NUR ---
NURSE NOTES: CONDITION STABLE. IN NO DISTRESS.
--- NOTE | 2019-04-06 19:35 | NUR ---
NURSE NOTES: Received report from EUSEBIO Bravo. Pt is awake, lying semi-raygoza's; comfortably resting. No signs of acute distress noted. Pt denies any pain at this time. AOx4; able to make needs known. Checked IV site, line, and rate; patent and running. No erythema, bleeding, or infiltration noted. Bed at lowest position. Walker at bedside. Brakes on. Siderails up x2. Call light within reach. Will continue to monitor.
--- NOTE | 2019-04-06 19:41 | NUR ---
HAND-OFF: Report given to Yuan COBB RN.
[2019-04-06 20:00] VITALS: BP 129/71
[2019-04-06] MEDS: Dyna-Hex 2% Top Sol 2oz TOPIC SCH (20:51)
[2019-04-06] MEDS: Iron Sucrose 100 MG in NS 55 ML IV SCH (20:51)
[2019-04-07] VITALS: BP 123/65
[2019-04-07 04:00] VITALS: BP 123/67
[2019-04-07 05:30] LABS: EOSINOPHILS % (AUTO) 1.7 % (0.0-3.0); HEMATOCRIT 37.8 % (37.0-47.0); HEMOGLOBIN 13.2 G/DL (12.0-16.0); LYMPHOCYTES % (AUTO) 18.7 % (20.0-45.0); MEAN CORPUSCULAR VOLUME 86 FL (80-99); MONOCYTES % (AUTO) 8.2 % (1.0-10.0); NEUTROPHILS % (AUTO) 70.5 % (45.0-75.0); PLATELET COUNT 172 K/UL (150-450); RED BLOOD COUNT 4.37 M/UL (4.20-5.40); RED CELL DISTRIBUTION WIDTH 11.7 % (11.6-14.8); WHITE BLOOD COUNT 7.3 K/UL (4.8-10.8)
[2019-04-07 05:46] LABS: ANION GAP 6 mmol/L (5-15); BLOOD UREA NITROGEN 2 mg/dL (7-18); CALCIUM 8.5 MG/DL (8.5-10.1); CARBON DIOXIDE 28 MMOL/L (21-32); CHLORIDE 109 MMOL/L (98-107); CREATININE 0.7 MG/DL (0.55-1.30); POTASSIUM 3.8 MMOL/L (3.5-5.1); SODIUM 143 MMOL/L (136-145)
[2019-04-07] MEDS: NovoLOG Insulin Flexpen SUBQ SCH ×4 (06:00→16:53)
--- NOTE | 2019-04-07 07:10 | NUR ---
HAND-OFF: Report given to EUSEBIO Bravo. Pt is awake and in stable condition. Plan of care endorsed.
--- NOTE | 2019-04-07 07:33 | NUR ---
NURSE NOTES: AWAKE/ALERT. PAIN SCALE 5/10. IN NO ACUTE DISTRESS.
--- NOTE | 2019-04-07 07:45 | NUR ---
NURSE NOTES: Pt's TPN order was supposed to start on 04/06 at 2000 according to oncoming RN however, Pharmacy made an error and put the start date for today 04/07. Dr. York made aware and awaiting callback. Will endorse to day RN to get new orders from Dr. York.
--- NOTE | 2019-04-07 07:47 | NUR ---
NURSE NOTES: AWAKE/ALERT. NO C/O PAIN . IN NO DISTRESS.
[2019-04-07 08:00] VITALS: BP 134/74
[2019-04-07] MEDS ORDERED: FAT EMULSION 20% IV SCH ×2 (08:15→20:00)
[2019-04-07] MEDS ORDERED: TPN IV SCH ×2 (08:15→20:00)
[2019-04-07] MEDS: Heparin 5000 units/ml inj SUBQ SCH ×2 (08:45→20:22)
--- NOTE | 2019-04-07 09:01 | Pulmonology Progress Note ---
Assessment/Plan Assessment/Plan IMPRESSION: 1. 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 2. History of pulmonary embolism. 3. History of IVC filter. 4. Chronic anticoagulation with Xarelto. 5. History of proctocolectomy. 6. Ulcerative colitis. 7. Bravo pouch with recent issues intubation. 8. History of left lung carcinoma, status post lobectomy. 9. History of recently diagnosed right lung carcinoma, scheduled for resection stage IB. DISCUSSION: The patient is slated for laparotomy for repair of Bravo pouch. No IVC filter seen on imaging. I have reviewed the new venous duplex left lower extremity. She has chronic DVT L side Discussed with Dr. York. At this time, I would recommend avoiding full anticoagulation given her need for complex abdominal surgery and only continue sub cut heparin. Will begin Xarelto once she is cleared from surgery I will follow as assistant general manager. She will be scheduled for right lung surgery after her current GI issues resolve, which is appropriate. Dk Summers M.D. Subjective Interval Events: None new Constitutional: Reports: no symptoms HEENT: Repors: no symptoms Respiratory: Reports: no symptoms Cardiovascular: Reports: no symptoms Gastrointestinal/Abdominal: Reports: no symptoms Allergies: Coded Allergies: No Known Allergies (Unverified , 04/03/19) Objective Last 24 Hour Vital Signs Date Time Temp Pulse Resp B/P (MAP) Pulse Ox O2 Delivery O2 Flow Rate FiO2 04/07/19 04:00 97.9 77 18 123/67 (85) 92 04/07/19 00:00 99.0 80 20 123/65 (84) 94 04/06/19 21:00 Room Air 04/06/19 20:00 99.0 75 18 129/71 (90) 95 04/06/19 16:00 98.4 84 16 140/73 (95) 97 04/06/19 12:00 98.7 77 18 133/76 (95) 97 04/06/19 09:00 Room Air Intake and Output 04/06/19 04/07/19 19:00 07:00 Intake Total 2225 ml 60 ml Output Total 2495 ml 1270 ml Balance -270 ml -1210 ml Intake Oral 1400 ml 0 ml IV Total 825 ml 60 ml Output Urine Total 1300 ml 950 ml Other 1195 ml 320 ml # Voids 4 3 General Appearance: no acute distress HEENT: normocephalic Respiratory/Chest: chest wall non-tender, lungs clear Cardiovascular: normal peripheral pulses Laboratory Tests 04/07/19 05:00: White Blood Count 7.3, Red Blood Count 4.37, Hemoglobin 13.2, Hematocrit 37.8, Mean Corpuscular Volume 86, Mean Corpuscular Hemoglobin 30.1, Mean Corpuscular Hemoglobin Concent 34.9, Red Cell Distribution Width 11.7, Platelet Count 172, Mean Platelet Volume 5.6L, Neutrophils (%) (Auto) 70.5, Lymphocytes (%) (Auto) 18.7L, Monocytes (%) (Auto) 8.2, Eosinophils (%) (Auto) 1.7, Basophils (%) (Auto ) 1.0, Sodium Level 143, Potassium Level 3.8, Chloride Level 109H, Carbon Dioxide Level 28, Anion Gap 6, Blood Urea Nitrogen 2L, Creatinine 0.7, Estimat Glomerular Filtration Rate > 60, Glucose Level 103, Calcium Level 8.5 Current Medications Medications (Trade) Dose Ordered Sig/Jayshree Route PRN Reason Start Time Stop Time Status Last Admin Dose Admin Alprazolam (Xanax) 0.5 mg Q6H PRN ORAL For Anxiety 04/05/19 15:45 04/12/19 15:44 Ampicillin Sodium/ Sulbactam Sodium 3 gm/Sodium Chloride 110 ml @ 220 mls/hr EVERY 6 HOURS IV 04/08/19 00:00 04/15/19 00:00 Barium Sulfate (Readi-Cat 2) 450 ml NOW PRN ORAL Radiology Procedure 04/06/19 08:15 04/08/19 08:06 Chlorhexidine Gluconate (Michelle-Hex 2%) 1 applic DAILY@2000 TOPIC 04/05/19 20:00 05/05/19 19:59 04/06/19 20:51 Dextrose 1,000 ml @ 0 mls/hr Q24H PRN IV PN interrupted or unavailable 04/05/19 20:00 05/05/19 19:59 Dextrose (Dextrose 50%) 25 ml Q30M PRN IV Hypoglycemia 04/07/19 00:00 05/07/19 00:00 Dextrose (Dextrose 50%) 50 ml Q30M PRN IV Hypoglycemia 04/07/19 00:00 05/07/19 00:00 Erythromycin (Erythrocin) 500 mg TID@,,20 ORAL 04/07/19 12:00 04/07/19 20:01 Fat Emulsion Intravenous 192 ml/Amino Acids/ Electrolytes/ Dextrose 1,872 ml @ 78 mls/hr Q24H IV 04/07/19 08:15 04/07/19 19:59 04/07/19 08:37 Heparin Sodium (Porcine) (Heparin 5000 units/ml) 5,000 units EVERY 12 HOURS SUBQ 04/04/19 10:15 05/04/19 10:14 04/07/19 08:45 Heparin Sodium/ Sodium Chloride (Heparin 1000 units/500ml Premix) 1,000 unit ONCE PRN IV PICC LINE 04/05/19 07:45 04/07/19 18:00 Insulin Aspart (NovoLOG) Q6HR SUBQ 04/07/19 00:00 05/07/19 00:00 Iohexol (OMNIPAQUE-300 100ml) 100 ml NOW PRN INJ Radiology Procedure 04/06/19 08:15 04/08/19 08:06 Iron Sucrose 100 mg/Sodium Chloride 60 ml @ 240 mls/hr BEDTIME IV 04/06/19 21:00 04/10/19 21:14 04/06/19 20:51 Lidocaine HCl (Xylocaine 1% 30ml) 30 ml ONCE PRN INJ PICC LINE 04/05/19 07:45 04/07/19 18:00 Metronidazole 100 ml @ 100 mls/hr EVERY 6 HOURS IV 04/08/19 00:00 04/15/19 00:00 Neomycin Sulfate (Neomycin Sulfate) 500 mg TID@,16,20 ORAL 04/07/19 12:00 04/07/19 20:01 Ondansetron HCl (Zofran) 4 mg Q4H PRN IVP Nausea & Vomiting 04/06/19 15:45 05/06/19 15:44 Phytonadione (Vitamin K) 10 mg ONCE A WEEK SUBQ 04/13/19 09:00 05/13/19 08:59 Tramadol HCl (Ultram) 50 mg Q4H PRN ORAL pain or headache 04/05/19 15:45 04/12/19 15:44 04/05/19 15:40 Dk Smumers MD Apr 07, 2019 09:01
--- NOTE | 2019-04-07 10:57 | General Progress Note ---
Progress Note Progress Note AVSS Feeling okay - deciding re revision of BCIR pouch vs. resection with Madison ileostomy, in view of need for lung cancer surgery and chemo and risk of recurrent Bravo pouch malfunction Abdomen soft Urine 2450 BCIR ileo 1515 Imp: stable Plan bowel prep TPN surgery in AM full discussion re indications, alternatives and risks (bleeding, infection, injury to adjacent structures or organs, recurrent issue with Bravo pouch or [place] ileostomy, etc. all questions answered Blair York MD Apr 07, 2019 10:57
--- NOTE | 2019-04-07 11:16 | NUR ---
NURSE NOTES: left leg circumference 36 CM. RT LEG 34 CM.
[2019-04-07] MEDS: Neomycin Sulfate 500mg Tab ORAL SCH ×3 (11:42→20:18)
[2019-04-07 12:00] VITALS: BP 134/68
--- NOTE | 2019-04-07 14:00 | NUR ---
CASE MANAGEMENT: REVIEW 04/07/19 SI:ILEOSTOMY DYSFUNCTION . MALFUNCTION MARTINEZ POUCH 98.1 69 20 134/68 98 % ON RA IS:IV D5@75ML/HR HEPARIN SQ BID ULTRAM Q4HR/PRN NEOMYCIN SULFATE PO BID X3 DOSES ERYTHROMYCIN PO TID X3 DOSES IV TPN @24HR IV VENOFER QHS X5 BAGS ULTRAM PO Q4HR/PRN \: 3E MED SURG UNIT PLAN: BOWEL PREP STARTED SURGERY IN AM 04/08/19 CONTINUOUS DRAINAGE OF MARTINEZ POUCH
[2019-04-07 16:00] VITALS: BP 135/80
--- NOTE | 2019-04-07 16:00 | NUR ---
NURSE NOTES: WT 154.3 LBS
--- NOTE | 2019-04-07 18:58 | NUR ---
NURSE NOTES: NO ACUTE DISTRESS. NPO P MN ADVISED. FOR SURGERY TOMORROW
--- NOTE | 2019-04-07 19:30 | NUR ---
NURSE NOTES: Receive a report from EUSEBIO Bravo. Round is done. Pt is awake and alert. No acute distress noted. No bloating or gas discomfort noted. Ileostomy is in natural gravity with NS 20ml flushing q 3hrs. TPN is running via PICC on JARED and site is clear. No dyspnea or wheezing noted. No pain or redness noted on L/E. Using BSC with hat. Pt is planning to have surgery tomorrow. Call light within reach. Will continue to monitor.
[2019-04-07 20:00] VITALS: BP 124/71
[2019-04-07] MEDS: Dyna-Hex 2% Top Sol 2oz TOPIC SCH (20:19)
[2019-04-07] MEDS: TPN IV SCH (20:22)
[2019-04-07] MEDS: FAT EMULSION 20% IV SCH (20:22)
[2019-04-07] MEDS: Iron Sucrose 100 MG in NS 55 ML IV SCH (20:24)
[2019-04-07] MEDS: Ampicillin/Sulbactam Sod 3 GM in NS 110 ML IV SCH (23:44)
[2019-04-08] VITALS (15 sets, daily range): BP systolic 106–144; BP diastolic 55–78
[2019-04-08] MEDS: NovoLOG Insulin Flexpen SUBQ SCH ×4 (00:08→19:02)
--- NOTE | 2019-04-08 01:00 | NUR ---
NURSE NOTES: On MNNPO for surgery. No adverse reactions after ATBs. Will continue to monitor.
[2019-04-08] MEDS: Ampicillin/Sulbactam Sod 3 GM in NS 110 ML IV SCH ×3 (05:17→18:31)
--- NOTE | 2019-04-08 06:00 | NUR ---
NURSE NOTES: Given instructions of I/S for 10 times per every hour while awake as pre-op preparation. Pt demonstrated to use I/S and noted 1000ml in a breath. Done pre-op checklist. Surgery permission and transfusion permission are in the chart. Will continue to monitor. 12 hrs output Urine: 1070ml Ileostomy: 570ml
--- NOTE | 2019-04-08 07:15 | NUR ---
HAND-OFF: Report given to EUSEBIO Mayes. Round is done.
--- NOTE | 2019-04-08 07:50 | NUR ---
NURSE NOTES: Received report from Gho RN. Patient is awake and oriented, no acute distress noted, reporting no pain at this time. JARED PICC intact, patent, running TPN per order. Ileo to gravity drainage, NPO maintained for surgery today, BSC at bedside. Patient denies CP/SOB. Updated on plan of care for the day. Side rails upx2, bed low and locked, call light within reach.
--- NOTE | 2019-04-08 08:24 | NUR ---
NURSE NOTES: Calf circumference: left calf 35.5cm, right calf 35cm.
[2019-04-08] MEDS: Heparin 5000 units/ml inj SUBQ SCH ×2 (08:56→20:44)
[2019-04-08] MEDS ORDERED: Bacitracin 50000 Units Vial ONE (10:16)
[2019-04-08] MEDS ORDERED: NeoSporin Gu Irrig 1ml Amp IRRIG ONE (10:16)
[2019-04-08] MEDS ORDERED: NS Irrig 1000ml IRRIG ONE ×3 (10:50→13:18)
[2019-04-08] MEDS ORDERED: NS Irrig 2000ml IRRIG ONE ×3 (10:51→13:18)
--- NOTE | 2019-04-08 11:02 | Pre-Procedure Note/Attestation ---
Pre-Procedure Note/Attestation Complete Prior to Procedure Planned Procedure: not applicable Procedure Narrative: revision of Bravo continent ileostomy, possible resection with Madison ileostomy, possible ileostomy Indications for Procedure Pre-Operative Diagnosis: malfunctioning Bravo continent ileostomy Attestation I attest that I discussed the nature of the procedure; its benefits; risks and complications; and alternatives (and the risks and benefits of such alternatives ), prior to the procedure, with the patient (or the patient's legal agency sales representative). I attest that, if there was a reasonable possibility of needing a blood transfusion, the patient (or the patient's legal agency sales representative) was given the [place] Department of Health Services standardized written summary, pursuant to the [place] Blood Safety Act ([place] Health and Safety Code # 1645, as amended). I attest that I re-evaluated the patient just prior to the surgery and that there has been no change in the patient's H&P, except as documented below:none Blair York MD Apr 08, 2019 11:02
[2019-04-08] MEDS ORDERED: Ampicillin/Sulbactam Sod 3 GM in NS 110 ML IV SCH (12:00)
--- NOTE | 2019-04-08 12:05 | NUR ---
NURSE NOTES: Patient sent down to surgery with TPN and Unasyn running, 1200 dose of Flagyl given to neal Choi to take with patient.
[2019-04-08] MEDS ORDERED: Rocuronium Bromide 50mg/5ml Inj IV ONE (12:37)
[2019-04-08] MEDS ORDERED: LR 1000ml ONE (12:45)
[2019-04-08] MEDS ORDERED: Sterile Water Irrig 1000ml IRRIG ONE (12:45)
[2019-04-08] MEDS ORDERED: Neostigmine 1mg/ml 10ml Inj ONE (12:45)
[2019-04-08] MEDS ORDERED: Sodium Chloride 10ml vial INJ ONE (12:59)
[2019-04-08] MEDS ORDERED: Dexamethasone 4mg/ml vial ONE (12:59)
[2019-04-08] MEDS ORDERED: Propofol 200mg/20ml IV ONE (12:59)
[2019-04-08] MEDS ORDERED: Lidocaine 1% Plain 30 ml INJ ONE (12:59)
[2019-04-08] MEDS ORDERED: Lidocaine 1% MPF 10mg/ml 5ml ONE (12:59)
[2019-04-08] MEDS ORDERED: Midazolam 2mg/2ml Inj ONE (13:00)
[2019-04-08] MEDS ORDERED: fentaNYL 100 mcg/2 mL IV ONE (13:00)
--- NOTE | 2019-04-08 13:49 | Anethesia Preoperative Eval ---
Anesthesia Pre-op PMH/ROS General Date of Evaluation: Apr 08, 2019 Time of Evaluation: 12:44 Anesthesiologist: Vadim ASA Score: ASA 3 Mallampati Score Class I : Soft palate, uvula, fauces, pillars visible Class II: Soft palate, uvula, fauces visible Class III: Soft palate, base of uvula visible Class IV: Only hard plate visible Mallampati Classification: Class II Surgeon: Jaylen Diagnosis: Malfunctioning Bravo Continent Ileostomy Surgical Procedure: Revision Bravo Continent Ileostomy Anesthesia History: none Family History: no anesthesia problems Allergies: Coded Allergies: No Known Allergies (Unverified , 04/03/19) Medications: see eMAR Patient NPO?: Yes NPO Date: Apr 08, 2019 NPO Time: 0000 Past Medical History Cardiovascular: Reports: HTN Pulmonary: 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 Abdominal colectomy with Madison ileostomy and total abdominal hysterectomy in 1983. 2. Abdominoperineal proctectomy in 1985. 3. Bravo continent ileostomy in 1993. 4. Left total knee replacement 1999. 5. Left lower lobectomy for non-small cell carcinoma of the lung 2014. 6. Needle biopsy of right upper lobe lung lesion two weeks ago with resulting pneumothorax and chest tube insertion with findings of stage IB carcinoma of the lung. Anesthesia Pre-op Phys. Exam Physician Exam Last Vital Signs Date Time Temp Pulse Resp B/P (MAP) Pulse Ox O2 Delivery O2 Flow Rate FiO2 04/08/19 12:00 98.2 84 18 144/77 (99) 95 04/08/19 09:00 Room Air Constitutional: NAD Neurologic: CN 2-12 intact Cardiovascular: RRR Respiratory: CTA Gastrointestinal: S/NT/ND Airway Exam Mallampati Score: Class II MO: full ROM: limited Teeth: missing, intact Anesthesia Pre-op A/P Risk Assessment & Plan Assessment: ASA 3 Plan: GA, SED, GlideScope Go Status Change Before Surgery: No Pre-Antibiotics Drug: On Floor Given Within 1 Hr of Incision: Yes Bernard Fierro MD Apr 08, 2019 13:49
--- NOTE | 2019-04-08 13:50 | Immediate Post-Op Evaluation ---
Immediate Post-Op Evalulation Immediate Post-Op Evalulation Procedure: Revision Bravo Continent Ileostomy Date of Evaluation: Apr 08, 2019 Time of Evaluation: 15:27 IV Fluids: 400 LR Blood Products: 0 Estimated Blood Loss: 40 Urinary Output: 0 Blood Pressure Systolic: 125 Blood Pressure Diastolic: 78 Pulse Rate: 85 Respiratory Rate: 16 O2 Sat by Pulse Oximetry: 98 Temperature (Fahrenheit): 97 Pain Score (1-10): 2 Nausea: No Vomiting: No Complications 0 Patient Status: awake, reacts, patent, extubated, none Hydration Status: adequate Drug: On Floor Given Within 1 Hr of Incision: Yes Bernard Fierro MD Apr 08, 2019 13:50
[2019-04-08] MEDS ORDERED: LR 1000ml 1,000 ML IVLG SCH (13:57)
[2019-04-08] MEDS ORDERED: Hydromorphone 0.5mg/0.5ml inj IVP PRN (14:00)
[2019-04-08] MEDS ORDERED: fentaNYL 100 mcg/2 mL IV PRN (14:00)
[2019-04-08] MEDS ORDERED: HYDROcodone/Acetamin 7.5/325 tab ORAL PRN (14:00)
[2019-04-08] MEDS ORDERED: Midazolam 2mg/2ml Inj IVP PRN (14:00)
[2019-04-08] MEDS ORDERED: DiphenhydrAMINE 50mg/ml Inj IVP PRN ×2 (14:00→15:15)
[2019-04-08] MEDS ORDERED: Atropine Sulfate 0.4mg/ml inj IVP PRN (14:00)
[2019-04-08] MEDS ORDERED: LORazepam Inj 2mg/ml 1ml IV PRN (14:00)
[2019-04-08] MEDS ORDERED: Acetaminophen (Non formulary) 100 ML IV ONE (14:00)
[2019-04-08] MEDS ORDERED: oxyCODONE HCL/Acetaminophen 5/325mg ORAL PRN (14:00)
[2019-04-08] MEDS ORDERED: Metoclopramide 10mg/2ml Inj IVP PRN (14:00)
[2019-04-08] MEDS ORDERED: Labetalol 5mg/ml 20ml vial IV PRN (14:00)
[2019-04-08] MEDS ORDERED: HYDROcodone/Acetamin 5/325 tab ORAL PRN (14:00)
[2019-04-08] MEDS ORDERED: Glycopyrrolate 0.2mg/ml 1ml Vial ONE (14:43)
[2019-04-08] MEDS ORDERED: Rate Change PCA 1 Each MISC PRN (15:15)
[2019-04-08] MEDS ORDERED: PCA Education Pamphlet MISC ONE (15:15)
[2019-04-08] MEDS ORDERED: Naloxone 0.4mg/ml Inj IVP PRN (15:15)
--- NOTE | 2019-04-08 15:15 | Brief Operative Note ---
Immediate Post Operative Note Operative Note Pre-op Diagnosis: malfunctioning Melendez continent ileostomy Procedure: resection of Melendez pouch with Madison ileostomy Post-op Diagnosis: same Post-op Diagnosis: same as pre-op Findings: consistent w/pre-op dx studies Surgeon: connie Additional Surgeons: iasel Anesthesiologist: aluren Anesthesia: general Specimen: yes - melendez pouch Complications: none Condition: stable Fluids: see anesthesia record Estimated Blood Loss: minimal Drains: none Implant(s) used?: No Blair York MD Apr 08, 2019 15:15
[2019-04-08] MEDS ORDERED: PCA HYDROmorphone 1mg/ml 30 ML IV PRN (15:21)
[2019-04-08] MEDS ORDERED: LORazepam 1mg tab SL PRN ×2 (15:30)
--- NOTE | 2019-04-08 16:30 | NUR ---
NURSE NOTES: Patient arrived to unit at 1625 via bed, accompanied by RN. Patient is drowsy but arousable on arrival, no acute distress noted, reporting mild pain, reporting bloating. Madison ileo with scant amount of bloody output noted, genao to gravity drainage. JARED PICC running TPN per order. POST SPLITTER settings checked and verified against order, patient on end tidal c02 monitoring and 2L NC. 1200 dose of flagyl returned by PACU nurse Livia, per RN she does not know why pre-op did not give medication as ordered. Patient updated on plan of care. Side rails upx3, bed low and locked, call light within reach.
--- NOTE | 2019-04-08 17:41 | Pulmonology Progress Note ---
Assessment/Plan Assessment/Plan IMPRESSION: 1. 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 2. History of pulmonary embolism. 3. History of IVC filter. 4. Chronic anticoagulation with Xarelto. 5. History of proctocolectomy. 6. Ulcerative colitis. 7. Bravo pouch with recent issues intubation. 8. History of left lung carcinoma, status post lobectomy. 9. History of recently diagnosed right lung carcinoma, scheduled for resection stage IB. DISCUSSION: The patient is slated for laparotomy for repair of Bravo pouch. No IVC filter seen on imaging. I have reviewed the new venous duplex left lower extremity. She has chronic DVT L side Discussed with Dr. York. At this time, I would recommend avoiding full anticoagulation given her need for complex abdominal surgery and only continue sub cut heparin. Will begin Xarelto once she is cleared from surgery I will follow as armature winder repairer. She will be scheduled for right lung surgery after her current GI issues resolve, which is appropriate. Dk Summers M.D. Subjective Interval Events: none new reported Constitutional: Reports: no symptoms HEENT: Repors: no symptoms Respiratory: Reports: no symptoms Cardiovascular: Reports: no symptoms Gastrointestinal/Abdominal: Reports: no symptoms Allergies: Coded Allergies: No Known Allergies (Unverified , 04/03/19) Objective Last 24 Hour Vital Signs Date Time Temp Pulse Resp B/P (MAP) Pulse Ox O2 Delivery O2 Flow Rate FiO2 04/08/19 16:15 97.5 62 15 114/63 98 Nasal Cannula 3 62 04/08/19 16:10 97.7 04/08/19 16:10 18 04/08/19 16:00 65 17 110/60 96 Nasal Cannula 3 65 04/08/19 15:55 15 04/08/19 15:45 64 18 114/62 98 Simple Mask 6 64 04/08/19 15:40 17 04/08/19 15:30 66 14 116/66 100 Simple Mask 6 66 04/08/19 15:20 69 17 119/68 99 Simple Mask 6 69 04/08/19 15:16 97.0 85 16 125/78 98 Simple Mask 6 85 04/08/19 15:13 85 16 98 04/08/19 12:00 98.2 84 18 144/77 (99) 95 04/08/19 09:00 Room Air 04/08/19 08:00 98.0 78 18 124/70 (88) 96 04/08/19 04:00 98.1 80 18 129/75 (93) 94 04/08/19 00:00 97.7 70 18 133/71 (91) 96 04/07/19 21:00 Room Air 04/07/19 20:00 98.1 76 18 124/71 (88) 97 Intake and Output 04/07/19 04/08/19 19:00 07:00 Intake Total 2311 ml 986 ml Output Total 2470 ml 1640 ml Balance -159 ml -654 ml Intake Oral 1570 ml 50 ml IV Total 741 ml 936 ml Output Urine Total 1600 ml 1070 ml Other 870 ml 570 ml # Voids 4 3 General Appearance: no acute distress HEENT: normocephalic Respiratory/Chest: chest wall non-tender, lungs clear Cardiovascular: normal peripheral pulses, normal rate Abdomen: normal bowel sounds Current Medications Medications (Trade) Dose Ordered Sig/Jayshree Route PRN Reason Start Time Stop Time Status Last Admin Dose Admin Acetaminophen (Tylenol) 650 mg Q4H PRN ORAL Mild Pain/Temp > 100.2 04/08/19 15:30 05/08/19 15:29 Acetaminophen/ Hydrocodone Bitart ([place] 5/325) 1 tab Q1H PRN ORAL Mild Pain (Pain Scale 1-3) 04/08/19 14:00 04/08/19 23:59 Acetaminophen/ Hydrocodone Bitart ([place] 7.5/325) 1 tab Q1H PRN ORAL Moderate Pain (Pain Scale 4-6) 04/08/19 14:00 04/08/19 23:59 Al Hydroxide/Mg Hydroxide (Mylanta) 15 ml Q1H PRN ORAL gi upset 04/08/19 14:00 04/08/19 23:59 Alprazolam (Xanax) 0.5 mg Q6H PRN ORAL For Anxiety 04/05/19 15:45 04/12/19 15:44 Ampicillin Sodium/ Sulbactam Sodium 3 gm/Sodium Chloride 110 ml @ 220 mls/hr EVERY 6 HOURS IV 04/08/19 00:00 04/15/19 00:00 04/08/19 11:37 Atropine Sulfate (Atropine 0.4mg/ ml) 0.5 mg Q5M PRN IVP HR<40 04/08/19 14:00 04/08/19 23:59 Chlorhexidine Gluconate (Michelle-Hex 2%) 1 applic DAILY@2000 TOPIC 04/05/19 20:00 05/05/19 19:59 04/07/19 20:19 Dextrose 1,000 ml @ 0 mls/hr Q24H PRN IV PN interrupted or unavailable 04/05/19 20:00 05/05/19 19:59 04/07/19 20:23 Dextrose (Dextrose 50%) 25 ml Q30M PRN IV Hypoglycemia 04/07/19 00:00 05/07/19 00:00 Dextrose (Dextrose 50%) 50 ml Q30M PRN IV Hypoglycemia 04/07/19 00:00 05/07/19 00:00 Dextrose/ Electrolytes 1,000 ml @ 50 mls/hr Q20H IV 04/08/19 18:00 05/08/19 17:59 Diphenhydramine HCl (Benadryl) 25 mg Q15M PRN IVP Itching 04/08/19 14:00 04/08/19 23:59 Diphenhydramine HCl (Benadryl) 25 mg Q6H PRN IVP Itching/Pruritis 04/08/19 15:15 04/10/19 15:14 Fat Emulsion Intravenous 192 ml/Amino Acids/ Electrolytes/ Dextrose 1,872 ml @ 78 mls/hr Q24H IV 04/07/19 20:00 05/07/19 19:59 04/07/19 20:22 Fentanyl Citrate (Sublimaze 100 mcg/2 mL) 25 mcg Q10M PRN IV Moderate Pain (Pain Scale 4-6) 04/08/19 14:00 04/08/19 23:59 Heparin Sodium (Porcine) (Heparin 5000 units/ml) 5,000 units EVERY 12 HOURS SUBQ 04/04/19 10:15 05/04/19 10:14 04/08/19 08:56 Hydralazine HCl (Apresoline) 5 mg Q30M PRN IV SBP>160 / DBP>90 04/08/19 14:00 04/08/19 23:59 Hydromorphone HCl 30 ml @ 0 mls/hr Q24H PRN IV For Pain 04/08/19 15:21 04/10/19 15:20 04/08/19 15:40 Hydromorphone HCl (Dilaudid) 0.5 mg Q15M PRN IVP Severe Pain (Pain Scale 7-10) 04/08/19 14:00 04/08/19 23:59 Hydromorphone HCl (Dilaudid) 1 mg Q4H PRN SUBQ Severe Breakthru Pain (>7) 04/08/19 15:15 04/15/19 15:14 Insulin Aspart (NovoLOG) Q6HR SUBQ 04/07/19 00:00 05/07/19 00:00 04/08/19 00:08 Iron Sucrose 100 mg/Sodium Chloride 60 ml @ 240 mls/hr BEDTIME IV 04/06/19 21:00 04/10/19 21:14 04/07/19 20:24 Labetalol HCl (Normodyne) 5 mg Q10M PRN IV SBP>160 / DBP>90 04/08/19 14:00 04/08/19 23:59 Lorazepam (Ativan 2mg/ml 1ml) 1 mg Q15M PRN IV For Anxiety 04/08/19 14:00 04/08/19 23:59 Lorazepam (Ativan) 1 mg HSPRN PRN SL Sleep 04/08/19 15:30 04/15/19 15:29 Lorazepam (Ativan) 1 mg Q4H PRN SL Muscle Spasm 04/08/19 15:30 04/15/19 15:29 Metoclopramide HCl (Reglan) 10 mg Q1H PRN IVP Nausea & Vomiting 04/08/19 14:00 04/08/19 23:59 Metronidazole 100 ml @ 100 mls/hr EVERY 6 HOURS IV 04/08/19 00:00 04/15/19 00:00 04/08/19 06:15 Midazolam HCl (Versed 2mg/2ml vial) 1 mg Q15M PRN IVP For Anxiety 04/08/19 14:00 04/08/19 23:59 Miscellaneous Medication (SPECIAL EDUCATION RESOURCE ROOM TEACHER Rate Change) 1 ea DAILY PRN MISC rate change 04/08/19 15:15 04/10/19 15:14 Miscellaneous Medication (SPECIAL EDUCATION RESOURCE ROOM TEACHER shift volume) 1 ea Q12HR@0700,1900 MISC 04/08/19 19:00 04/10/19 18:59 Naloxone HCl (Narcan) 0.1 mg Q1M PRN IVP RR<10/min OR SBP<90 mmHg 04/08/19 15:15 04/10/19 15:14 Ondansetron HCl (Zofran) 4 mg Q1H PRN IVP Nausea & Vomiting 04/08/19 14:00 04/08/19 23:59 Ondansetron HCl (Zofran) 4 mg Q4H PRN IVP Nausea & Vomiting 04/08/19 15:30 05/08/19 15:29 Phytonadione (Vitamin K) 10 mg ONCE A WEEK SUBQ 04/13/19 09:00 05/13/19 08:59 Dk Summers MD Apr 08, 2019 17:40
--- NOTE | 2019-04-08 17:51 | NUR ---
NURSE NOTES: Dr. York informed and aware 1200 dose of flagyl was not given by pre-op as ordered.
[2019-04-08] MEDS ORDERED: D5 1/4NS w/KCl 20mEq 1,000 ML IV SCH (18:00)
--- NOTE | 2019-04-08 18:00 | Operative Note - Dictated ---
DATE OF OPERATION: 04/08/2019 SURGEON: Blair York M.D. CO-SURGEON: Juan Zamarripa M.D. ANESTHESIOLOGIST: Bernard Fierro M.D. TYPE OF ANESTHESIA: General endotracheal. PREOPERATIVE DIAGNOSES: 1. Malfunctioning Bravo continent ileostomy. 2. History of ulcerative colitis. 3. Status post multiple abdominal operations. 3.1. Abdominal colectomy with ileostomy and hysterectomy in 1983. 3.2. Abdominoperineal proctectomy in 1985. 3.3. Bravo continent ileostomy in 1993. POSTOPERATIVE DIAGNOSES: 1. Malfunctioning Bravo continent ileostomy. 2. History of ulcerative colitis. 3. Status post multiple abdominal operations. 3.1. Abdominal colectomy with ileostomy and hysterectomy in 1983. 3.2. Abdominoperineal proctectomy in 1985. 3.3. Bravo continent ileostomy in 1993. OPERATION PERFORMED: Laparotomy with resection of Bravo continent ileostomy and creation of Madison ileostomy. DESCRIPTION OF PROCEDURE: The patient was taken to the operating room and under general anesthesia with Horne catheter in place, she was prepped and draped in usual fashion. She has been heparinized because of popliteal vein thrombosis and sequential compression device stockings were not utilized. Previous left paramedian incision was reopened from above the umbilicus to the pubis. There were diffuse fairly severe adhesions to the undersurface of the abdominal wall and throughout the abdomen with the pouch deeply adherent into the deep pelvis. The pouch and small bowel loops were elevated. One enterotomy just proximal to the pouch was created. A 28-Faroese Horne was placed through the stoma into the pouch. The access segment was redundant. A transversely oriented elliptical incision was made around the stoma and it was brought into the field. In view of the severity of the adhesions, the patient's age, recent diagnosis of carcinoma of the lung stage IB, and based on previous preoperative discussions, it was felt that revising the pouch was too high risk and accordingly was resected. The mesentery was serially divided using the Thunderbeat electrosurgical device and the small bowel was divided at the site of the enterotomy. The pouch was given off the field to pathology. The field was copiously irrigated and hemostasis carefully achieved with cautery. Both ureters and bladder were visualized and avoided. At a previously marked location high in the right lower quadrant, a circular disc of skin was excised with a cruciate incision in the fascia and abdominal wall hiatus was created. The small bowel was brought through and the mesentery trimmed for several centimeters using the Thunderbeat. The stoma was primarily matured with interrupted 3-0 chromic in traditional Madison fashion with a good everted perfused ileostomy. Throughout the procedure, antibiotic soaked laps have been used to protect the incision. The right lower quadrant fascia was closed with interrupted [id number] Prolene. The midline was then closed with continuous #1 looped PDS. Skin of the midline and right lower quadrant closed with yola. An ileostomy appliance was placed over the stoma followed by dry sterile dressing. Final sponge and needle counts were correct. The patient tolerated the procedure well and left the operating room in stable condition. Blair York M.D. DR: INI JOB#: [id number] CC:
--- NOTE | 2019-04-08 18:30 | NUR ---
NURSE NOTES: Total ileo output for my shift: 80mL Total urine output (for time patient was on unit): 725mL Patient's pain is well managed, VS within normal limits.
[2019-04-08] MEDS: PCA shift volume MISC SCH (19:00)
--- NOTE | 2019-04-08 19:40 | NUR ---
NURSE NOTES: Receive a report from EUSEBIO Mayes. Round is done. Pt is awake and alert. No acute distress noted. Pain level is 2/10 with SCALE TESTER cont and bolus. No respiratory distress noted with monitoring eCO2. TPN and fluid are running PICC on JARED. Yellowish urine is patent via genao catheter. Noted small amount of blood output via Madison ileostomy. Noted dressing on surgery site saturated. Hung on surgical sites are clear. Noted small blood pocket on 5 O'clock of Madison ileostomy and tiny blood remained 1-2 O'clock site of ileostomy side. Reinforce with 4x4 gauze with paper tape. CN made aware. Call light within reach. Will notify Dr. York for surgical wound sites.
--- NOTE | 2019-04-08 19:58 | NUR ---
HAND-OFF: Report given to Yuri KAPLAN.
--- NOTE | 2019-04-08 20:10 | NUR ---
NURSE NOTES: Notify Dr. York for surgical sites. Receive order to reinforce and to have pressure bandage. Remain dressing site kept dry and clean. V/SS are stable. Will continue to monitor.
[2019-04-08] MEDS: FAT EMULSION 20% IV SCH (20:42)
[2019-04-08] MEDS: Dyna-Hex 2% Top Sol 2oz TOPIC SCH (20:42)
[2019-04-08] MEDS: Iron Sucrose 100 MG in NS 55 ML IV SCH (20:42)
[2019-04-08] MEDS: TPN IV SCH (20:42)
[2019-04-09] VITALS: BP 113/64
--- NOTE | 2019-04-09 | NUR ---
NURSE NOTES: Pain is controlling well with PRIMARY SCHOOL TEACHER continuous mode. No respiratory distress noted. Done I/S with coughing. Dressing remain dry and clean. Noted green output from Madison ileostomy. Provide ice chips for dry mouth. Will continue to monitor.
[2019-04-09] MEDS: Ampicillin/Sulbactam Sod 3 GM in NS 110 ML IV SCH ×5 (00:08→23:20)
[2019-04-09] MEDS: NovoLOG Insulin Flexpen SUBQ SCH ×5 (00:20→23:19)
[2019-04-09 04:00] VITALS: BP 116/63
--- NOTE | 2019-04-09 04:00 | NUR ---
NURSE NOTES: Noted saturated the dressing. Change dressing and reinforced. Will continue to monitor. Provide Lemon swab for oral dryness. Will continue to monitor.
--- NOTE | 2019-04-09 06:00 | NUR ---
NURSE NOTES: Denies pain. Dressing remain dry and clean. Will continue to monitor. 12 hr output Urine: 645ml Madison Ileostomy: 25ml
[2019-04-09 06:05] LABS: HEMATOCRIT 42.3 % (37.0-47.0); HEMOGLOBIN 14.7 G/DL (12.0-16.0); MEAN CORPUSCULAR VOLUME 87 FL (80-99); PLATELET COUNT 209 K/UL (150-450); RED BLOOD COUNT 4.83 M/UL (4.20-5.40); RED CELL DISTRIBUTION WIDTH 11.5 % (11.6-14.8)
[2019-04-09 06:45] LABS: ALANINE AMINOTRANSFERASE 24 U/L (12-78); ALBUMIN 2.4 G/DL (3.4-5.0); ALBUMIN/GLOBULIN RATIO 0.9 (1.0-2.7); ALKALINE PHOSPHATASE 68 U/L (46-116); ANION GAP 7 mmol/L (5-15); ASPARTATE AMINO TRANSFERASE 20 U/L (15-37); BILIRUBIN,TOTAL 0.3 MG/DL (0.2-1.0); BLOOD UREA NITROGEN 19 mg/dL (7-18); CALCIUM 8.3 MG/DL (8.5-10.1); CARBON DIOXIDE 25 MMOL/L (21-32); CHLORIDE 107 MMOL/L (98-107); CREATININE 0.7 MG/DL (0.55-1.30); PHOSPHORUS 2.9 MG/DL (2.5-4.9); POTASSIUM 4.7 MMOL/L (3.5-5.1); SODIUM 139 MMOL/L (136-145)
[2019-04-09 06:51] LABS: WHITE BLOOD COUNT 23.3 K/UL (4.8-10.8)
--- NOTE | 2019-04-09 06:55 | NUR ---
NURSE NOTES: Receive a report from Chemistry lab that WBC 23.3. Call Dr. York for lab result and left a message. Waiting for a call back.
--- NOTE | 2019-04-09 07:20 | NUR ---
HAND-OFF: Report given to EUSEBIO Mayes. Round is done.
[2019-04-09] MEDS: PCA shift volume MISC SCH ×2 (07:23→19:00)
[2019-04-09 08:00] VITALS: BP 119/63
[2019-04-09] MEDS ORDERED: Rate Change PCA 1 Each MISC PRN (08:15)
--- NOTE | 2019-04-09 08:15 | NUR ---
NURSE NOTES: Received report from Gho RN. Patient is awake and oriented, no acute distress noted, reporting mild pain at surgical site. External appliance over guillaume ileostomy in place, small amount of leaking noted, reinforced by Dr. York, per MD patient will be seen by wound care nurse today and appliance to be changed by wound care nurse, MD aware critical WBC value from this morning (see critical value MD notification). Patient on COUNTY AUDITOR with end tidal c02 monitoring and continuous pulseox in place, on 2L NC, JARED PICC intact, patent, running IVF and TPN per order. Patient updated on plan of care for the day. Side rails upx3, bed low and locked, call light within reach.
--- NOTE | 2019-04-09 08:23 | General Progress Note ---
Progress Note Progress Note AVSS comfortable with dilaudid online project manager with 0.5 mg/her basal + demand Had some bleeding from medial ileostomy stoma that stopped chest - decreased expansion Cor reg rhythm Abdomen mildly distended, incision clean, stoma pink Overnight 12 hours: urine 645 ileostomy 25 enteric WBC 23,300 Hgb 14.7 stable BUN up 19 Cr stable 0.7 labs all okay except albumin 2.4 Imp: ileus atelectasis Plan: continue npo, TPN, Horne (pelvic dissection) WOCN re new ileostomy care mobilize Blair York MD Apr 09, 2019 08:23
[2019-04-09] MEDS ORDERED: DiphenhydrAMINE 50mg/ml Inj IVP PRN (08:30)
[2019-04-09] MEDS ORDERED: PCA HYDROmorphone 1mg/ml 30 ML IV PRN (08:30)
[2019-04-09] MEDS ORDERED: Naloxone 0.4mg/ml Inj IVP PRN (08:30)
[2019-04-09] MEDS: Heparin 5000 units/ml inj SUBQ SCH ×2 (09:22→21:47)
--- NOTE | 2019-04-09 11:13 | NUR ---
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 CURRENT DIET:NPO PARENTERAL NUTRITION RECOMMENDATIONS: D/AA Rate: 70 IL Rate: 8 Total Rate: 78 Volume: 1872 % Dextrose: 19 % AA: 5.4 Energy (kcals/kg): 1832 Protein (g/kg protein): 91 Nonprotein KCALS: 1469 GIR (mg CHO/kg/min): 3.1 % Fat KCALS: 21 NPC: N Ratio: 101:1 TPN Comment: - D19% + AA 5.4% @70ml/hr with IL 20% @8ml/hr-> all 3:1. - Goal rate of 78ml/hr x24 hrs - TPN at goal meets 100% est needs, provides 30 kcal per adj kg and 1.5g/adj kg pro. - GIR <5 - IL <30% ADDITIONAL RECOMMENDATIONS: 1) Obtain a standing weight as able 2) Monitor BG, lytes, LFT's w/ TPN, need for formulary adjustments 3) Added D5 now dc'd, will monitor BG; need for TPN formulary and/ or rate change
--- NOTE | 2019-04-09 11:26 | 48 Hour Post Anesthesia Eval ---
Post Anesthesia Evaluation Procedure: Revision Bravo Continent Ileostomy Date of Evaluation: Apr 09, 2019 Airway: patent Nausea: No Vomiting: No Pain Intensity: 0 Hydration Status: adequate Cardiopulmonary Status: at baseline Mental Status/LOC: patient returned to baseline Post-Anesthesia Complications: 0 Follow-up care needed: N/A - further care as per primary team Doris Paulino MD Apr 09, 2019 11:26
[2019-04-09 12:00] VITALS: BP 132/57
[2019-04-09] MEDS ORDERED: 1/2NS w/KCl 20mEq 1000ml 1,000 ML IV SCH (12:00)
--- NOTE | 2019-04-09 13:39 | Pulmonology Progress Note ---
Assessment/Plan Assessment/Plan IMPRESSION: 1. 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 2. History of pulmonary embolism. 3. History of IVC filter. None seen on imaging. 4. Chronic anticoagulation with Xarelto. 5. History of proctocolectomy. 6. Ulcerative colitis. 7. Bravo pouch with recent issues intubation. 8. History of left lung carcinoma, status post lobectomy. 9. History of recently diagnosed right lung carcinoma, scheduled for resection stage IB. DISCUSSION: S/p laparatomy I have reviewed the new venous duplex left lower extremity. She has chronic DVT L side Discussed with Dr. York. At this time, I would recommend avoiding full anticoagulation given her complex abdominal surgery and only continue sub cut heparin. Will begin Xarelto once she is cleared from surgery I will follow as receiving teller. She will be scheduled for right lung surgery after her current GI issues resolve, which is appropriate. Dk Summers M.D. Subjective Interval Events: S/p laparatomy Constitutional: Reports: no symptoms HEENT: Repors: no symptoms Respiratory: Reports: no symptoms Cardiovascular: Reports: no symptoms Gastrointestinal/Abdominal: Reports: no symptoms Allergies: Coded Allergies: No Known Allergies (Unverified , 04/03/19) Objective Last 24 Hour Vital Signs Date Time Temp Pulse Resp B/P (MAP) Pulse Ox O2 Delivery O2 Flow Rate FiO2 04/09/19 12:31 18 04/09/19 12:00 98.9 73 18 132/57 (82) 98 04/09/19 09:00 Nasal Cannula 2.0 04/09/19 08:55 99 Nasal Cannula 2.0 28 04/09/19 08:10 20 04/09/19 08:00 98.4 87 20 119/63 (81) 98 04/09/19 04:00 77 20 97 04/09/19 04:00 98.2 77 20 116/63 (80) 97 04/09/19 00:00 98.1 73 20 113/64 (80) 97 04/09/19 00:00 73 20 97 04/08/19 21:00 Nasal Cannula 2.0 04/08/19 20:00 98.3 80 19 128/72 (90) 98 04/08/19 20:00 80 19 98 04/08/19 18:50 98.3 79 14 135/72 (93) 99 04/08/19 17:25 97.8 79 14 119/62 (81) 98 04/08/19 17:25 14 04/08/19 16:51 67 14 115/55 (75) 99 04/08/19 16:51 14 04/08/19 16:25 61 14 106/55 (72) 98 04/08/19 16:25 14 04/08/19 16:15 97.5 62 15 114/63 98 Nasal Cannula 3 62 04/08/19 16:10 97.7 04/08/19 16:10 18 04/08/19 16:00 65 17 110/60 96 Nasal Cannula 3 65 04/08/19 15:55 15 04/08/19 15:45 64 18 114/62 98 Simple Mask 6 64 04/08/19 15:40 17 04/08/19 15:30 66 14 116/66 100 Simple Mask 6 66 04/08/19 15:20 69 17 119/68 99 Simple Mask 6 69 04/08/19 15:16 97.0 85 16 125/78 98 Simple Mask 6 85 04/08/19 15:13 85 16 98 Intake and Output 04/08/19 04/09/19 19:00 07:00 Intake Total 696 ml 1796 ml Output Total 165 ml 670 ml Balance 531 ml 1126 ml IV Total 696 ml 1796 ml Output Urine Total 165 ml 645 ml Other 25 ml General Appearance: no acute distress HEENT: normocephalic Respiratory/Chest: chest wall non-tender, lungs clear Cardiovascular: normal peripheral pulses Abdomen: soft, non tender Laboratory Tests 04/09/19 05:45: White Blood Count 23.3*H, Red Blood Count 4.83, Hemoglobin 14.7, Hematocrit 42.3 , Mean Corpuscular Volume 87, Mean Corpuscular Hemoglobin 30.4, Mean Corpuscular Hemoglobin Concent 34.8, Red Cell Distribution Width 11.5L, Platelet Count 209, Mean Platelet Volume 6.6, Neutrophils (%) (Auto) , Lymphocytes (%) (Auto) , Monocytes (%) (Auto) , Eosinophils (%) (Auto) , Basophils (%) (Auto) , Differential Total Cells Counted 100, Neutrophils % ( Manual) 92H, Lymphocytes % (Manual) 3L, Monocytes % (Manual) 5, Eosinophils % ( Manual) 0, Basophils % (Manual) 0, Band Neutrophils 0, Platelet Estimate Adequate, Platelet Morphology Normal, Red Blood Cell Morphology Normal, Sodium Level 139, Potassium Level 4.7, Chloride Level 107, Carbon Dioxide Level 25, Anion Gap 7, Blood Urea Nitrogen 19H, Creatinine 0.7, Estimat Glomerular Filtration Rate > 60, Glucose Level 257H, Calcium Level 8.3L, Phosphorus Level 2.9, Magnesium Level 2.0, Total Bilirubin 0.3, Aspartate Amino Transf (AST/SGOT ) 20, Alanine Aminotransferase (ALT/SGPT) 24, Alkaline Phosphatase 68, Total Protein 5.1L, Albumin 2.4L, Globulin 2.7, Albumin/Globulin Ratio 0.9L Current Medications Medications (Trade) Dose Ordered Sig/Jayshree Route PRN Reason Start Time Stop Time Status Last Admin Dose Admin Acetaminophen (Tylenol) 650 mg Q4H PRN ORAL Mild Pain/Temp > 100.2 04/08/19 15:30 05/08/19 15:29 Alprazolam (Xanax) 0.5 mg Q6H PRN ORAL For Anxiety 04/05/19 15:45 04/12/19 15:44 Ampicillin Sodium/ Sulbactam Sodium 3 gm/Sodium Chloride 110 ml @ 220 mls/hr EVERY 6 HOURS IV 04/08/19 00:00 04/15/19 00:00 04/09/19 12:24 Chlorhexidine Gluconate (Michelle-Hex 2%) 1 applic DAILY@2000 TOPIC 04/05/19 20:00 05/05/19 19:59 04/08/19 20:42 Dextrose 1,000 ml @ 0 mls/hr Q24H PRN IV PN interrupted or unavailable 04/05/19 20:00 05/05/19 19:59 04/07/19 20:23 Dextrose (Dextrose 50%) 25 ml Q30M PRN IV Hypoglycemia 04/07/19 00:00 05/07/19 00:00 Dextrose (Dextrose 50%) 50 ml Q30M PRN IV Hypoglycemia 04/07/19 00:00 05/07/19 00:00 Diphenhydramine HCl (Benadryl) 25 mg Q6H PRN IVP Itching/Pruritis 04/09/19 08:30 04/11/19 08:29 Fat Emulsion Intravenous 192 ml/Amino Acids/ Electrolytes/ Dextrose 1,872 ml @ 78 mls/hr Q24H IV 04/07/19 20:00 05/07/19 19:59 04/08/19 20:42 Heparin Sodium (Porcine) (Heparin 5000 units/ml) 5,000 units EVERY 12 HOURS SUBQ 04/04/19 10:15 05/04/19 10:14 04/09/19 09:22 Hydromorphone HCl 30 ml @ 0 mls/hr Q24H PRN IV For Pain 04/09/19 08:30 04/11/19 08:29 Hydromorphone HCl (Dilaudid) 1 mg Q4H PRN SUBQ Severe Breakthru Pain (>7) 04/08/19 15:15 04/15/19 15:14 Insulin Aspart (NovoLOG) Q6HR SUBQ 04/07/19 00:00 05/07/19 00:00 04/09/19 12:38 Iron Sucrose 100 mg/Sodium Chloride 60 ml @ 240 mls/hr BEDTIME IV 04/06/19 21:00 04/10/19 21:14 04/08/19 20:42 Lorazepam (Ativan) 1 mg HSPRN PRN SL Sleep 04/08/19 15:30 04/15/19 15:29 Lorazepam (Ativan) 1 mg Q4H PRN SL Muscle Spasm 04/08/19 15:30 04/15/19 15:29 Metronidazole 100 ml @ 100 mls/hr EVERY 6 HOURS IV 04/08/19 00:00 04/15/19 00:00 04/09/19 12:24 Miscellaneous Medication (CONDENSER CLEANER Rate Change) 1 ea DAILY PRN MISC rate change 04/09/19 08:15 04/11/19 08:14 Miscellaneous Medication (CONDENSER CLEANER shift volume) 1 ea Q12HR@0700,1900 MISC 04/09/19 19:00 04/11/19 18:59 Naloxone HCl (Narcan) 0.1 mg Q1M PRN IVP RR<10/min OR SBP<90 mmHg 04/09/19 08:30 04/11/19 08:29 Ondansetron HCl (Zofran) 4 mg Q4H PRN IVP Nausea & Vomiting 04/08/19 15:30 05/08/19 15:29 Phytonadione (Vitamin K) 10 mg ONCE A WEEK SUBQ 04/13/19 09:00 05/13/19 08:59 Sodium 1,000 ml @ 30 mls/hr Q24H IV 04/09/19 12:00 05/09/19 11:59 04/09/19 12:25 Dk Summers MD Apr 09, 2019 13:39
--- NOTE | 2019-04-09 14:19 | NUR ---
P.T Note: P.T evaluation completed and tx initiated. Please refer to P.T evaluation for current functional status. Skilled P.T service is warranted to improve strength and endurance to increase mobility independence and safety towards return [facility].
--- NOTE | 2019-04-09 14:27 | NUR ---
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 MALFUNCTION MARTINEZ POUCH 98.9 73 18 132/57 98% ON RA WBC 23.3 BUN 19 BG 257 CA+ 8.3 IS:IV D5@75ML/HR IV FLAGYL Q6HR HEPARIN SQ BID ULTRAM Q4HR/PRN NEOMYCIN SULFATE PO BID X3 DOSES ERYTHROMYCIN PO TID X3 DOSES IV TPN @24HR IV VENOFER QHS X5 BAGS ULTRAM PO Q4HR/PRN \: 3E MED SURG UNIT PLAN: CONTINUE NPO CONT TPN FOSTER CARE MOBILIZE PATIENT
[2019-04-09] MEDS ORDERED: Tubing IV Secondary IV ONE (14:39)
[2019-04-09] MEDS ORDERED: NS 500ML ONE (14:39)
[2019-04-09] MEDS ORDERED: NS Irrig 1000ml ONE (14:39)
--- NOTE | 2019-04-09 14:44 | NUR ---
NURSE NOTES: New external ileostomy appliance applied by Rashid RUSS.
[2019-04-09 16:00] VITALS: BP 130/57
--- NOTE | 2019-04-09 16:59 | NUR ---
NURSE NOTES:OSTOMY CARE:Pt S/P Ileostomy. Moderately protruding and budded stoma noted RLQ abd in close proximity to umbilicus. Stoma is beefy red. Small amt liquid green effluent noted in pouch. Peristomal skin is pink . Pt stated she had an Ileostomy over 30 years ago and stated she is anxious at having current ileostomy due to previous complications with appliances and leakage.Pt reassured that there is an abundance of appliances available to her specific needs that are much improved and that staff will work to ensure proper appliance is provided suitable to her needs and preference. Pt expressed preference for Two piece appliance. Education provided on peristomal cleansing, Pt instructed to avoid using personal wipes and body cleansers that contain fragrance and moisturizers.Instructed on application of Skin Barrier wipes than application of Eakins Barrier ring. Secondary to Ileostomy in close proximity to umbilicus and concern for leaking . Cohesive Paste placed into umbilicus as a filler for better adherence of Durahesive of Wafer.In addition a 2 1/4 Moldable Accordion wafer is in use to allow for better flexibility,and will observed if this appliance is appropriate for pt. Pt and her spouse encouraged to voice all concerns. All questions and concerns were addressed.
--- NOTE | 2019-04-09 18:05 | NUR ---
NURSE NOTES: Total ileo output for shift: 25mL Total urine output: 450mL Patient ambulated in hallway with physical therapy x1, pain is well managed with HUSBANDRY PERSON.
--- NOTE | 2019-04-09 19:52 | NUR ---
HAND-OFF: Report given to Felicita KAPLAN.
--- NOTE | 2019-04-09 19:52 | NUR ---
NURSE NOTES: Received report from EUSEBIO Mayes. Pt is awake, lying high-raygoza's; comfortably resting. No signs of acute distress noted. Pt denies any pain at this time. AOx4; able to make needs known. Checked IV site, line, and rate; patent and running. No erythema, bleeding, or infiltration noted. Bed at lowest position. Brakes on. Siderails up x2. Call light within reach. Will continue to monitor.
[2019-04-09 20:00] VITALS: BP 126/60
[2019-04-09] MEDS: Dyna-Hex 2% Top Sol 2oz TOPIC SCH (21:44)
[2019-04-09] MEDS: Iron Sucrose 100 MG in NS 55 ML IV SCH (21:45)
[2019-04-09] MEDS: FAT EMULSION 20% IV SCH (21:46)
[2019-04-09] MEDS: TPN IV SCH (21:46)
[2019-04-10] VITALS (7 sets, daily range): BP systolic 124–137; BP diastolic 63–78
[2019-04-10] MEDS: Ampicillin/Sulbactam Sod 3 GM in NS 110 ML IV SCH ×3 (05:30→17:01)
[2019-04-10] MEDS: NovoLOG Insulin Flexpen SUBQ SCH ×3 (06:00→17:00)
[2019-04-10] MEDS: PCA shift volume MISC SCH ×2 (07:00→19:00)
[2019-04-10 07:47] LABS: BASOPHILS % (AUTO) 0.6 % (0.0-2.0); EOSINOPHILS % (AUTO) 0.3 % (0.0-3.0); HEMATOCRIT 42.1 % (37.0-47.0); HEMOGLOBIN 14.4 G/DL (12.0-16.0); LYMPHOCYTES % (AUTO) 14.3 % (20.0-45.0); MEAN CORPUSCULAR VOLUME 89 FL (80-99); MONOCYTES % (AUTO) 7.4 % (1.0-10.0); NEUTROPHILS % (AUTO) 77.4 % (45.0-75.0); PLATELET COUNT 203 K/UL (150-450); RED BLOOD COUNT 4.76 M/UL (4.20-5.40); RED CELL DISTRIBUTION WIDTH 11.9 % (11.6-14.8); WHITE BLOOD COUNT 17.3 K/UL (4.8-10.8)
--- NOTE | 2019-04-10 08:00 | NUR ---
NURSE NOTES: Received report from Felicita KAPLAN, pt a/a/o x4 laying in bed with no signs of distress or other issues at this time. PICC line in place on the left upper arm running TPN @78ml/hr, BIOGEOGRAPHER Dilaudid, and IVF@30ml/hr. Madison ileostomy in place, total manufacturing supervisor 2nd shift out put: 10ml. Horne catheter in place draining to gravity, total manufacturing supervisor 2nd shift out out: 475ml. call light within reach, bed in lowest position, side rales up x2, I will f/u as needed.
[2019-04-10 08:15] LABS: ALANINE AMINOTRANSFERASE 26 U/L (12-78); ALBUMIN 2.5 G/DL (3.4-5.0); ALBUMIN/GLOBULIN RATIO 0.8 (1.0-2.7); ALKALINE PHOSPHATASE 78 U/L (46-116); ANION GAP 5 mmol/L (5-15); ASPARTATE AMINO TRANSFERASE 30 U/L (15-37); BILIRUBIN,TOTAL 0.4 MG/DL (0.2-1.0); BLOOD UREA NITROGEN 21 mg/dL (7-18); CALCIUM 8.8 MG/DL (8.5-10.1); CARBON DIOXIDE 30 MMOL/L (21-32); CHLORIDE 108 MMOL/L (98-107); CREATININE 0.7 MG/DL (0.55-1.30); POTASSIUM 4.4 MMOL/L (3.5-5.1); SODIUM 143 MMOL/L (136-145)
--- NOTE | 2019-04-10 08:22 | NUR ---
HAND-OFF: Report given to EUSEBIO Huerta. Pt is awake and in stable condition. Plan of care endorsed.
[2019-04-10] MEDS ORDERED: Pantoprazole Inj IVP SCH (09:00)
--- NOTE | 2019-04-10 09:22 | General Progress Note ---
Progress Note Progress Note AVSS c/o indigestion/heartburn. Ambulated yesterday Abdomen mild soft distention, incisions clean, stoma pink Urine 925 Ileostomy scant serous WBC down 17,300 Hgb 14.4 stable BUN up 21 Cr 0.7 Albumin 2.5 Imp: Ileus Plan; continue npo, TPN, genao (pelvic dissection) d/c basal of pipe roller increase IV fluids f/u labs ambulate BID continue SQ heparin Blair York MD Apr 10, 2019 09:22
[2019-04-10] MEDS ORDERED: PCA HYDROmorphone 1mg/ml 30 ML IV PRN ×2 (09:30)
[2019-04-10] MEDS ORDERED: DiphenhydrAMINE 50mg/ml Inj IVP PRN (09:30)
[2019-04-10] MEDS ORDERED: Rate Change PCA 1 Each MISC PRN (09:30)
[2019-04-10] MEDS ORDERED: Naloxone 0.4mg/ml Inj IVP PRN (09:30)
[2019-04-10] MEDS: 1/2NS w/KCl 20mEq 1000ml 1,000 ML IV SCH ×2 (09:37→22:50)
[2019-04-10] MEDS: Heparin 5000 units/ml inj SUBQ SCH ×2 (09:38→21:18)
--- NOTE | 2019-04-10 11:52 | Pulmonology Progress Note ---
Assessment/Plan Assessment/Plan IMPRESSION: 1. 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 2. History of pulmonary embolism. 3. History of IVC filter. None seen on imaging. 4. Chronic anticoagulation with Xarelto. 5. History of proctocolectomy. 6. Ulcerative colitis. 7. Bravo pouch with recent issues intubation. 8. History of left lung carcinoma, status post lobectomy. 9. History of recently diagnosed right lung carcinoma, scheduled for resection stage IB. DISCUSSION: S/p laparotomy She has chronic DVT L side Discussed with Dr. York. I would recommend avoiding full anticoagulation given her complex abdominal surgery and only continue sub cut heparin. Will begin Xarelto once she is cleared from surgery I will follow as product marketer. She will be scheduled for right lung surgery after her current GI issues resolve, which is appropriate. Dk Summers M.D. Subjective Interval Events: None new Constitutional: Reports: no symptoms HEENT: Repors: no symptoms Respiratory: Reports: no symptoms Cardiovascular: Reports: no symptoms Allergies: Coded Allergies: No Known Allergies (Unverified , 04/03/19) Objective Last 24 Hour Vital Signs Date Time Temp Pulse Resp B/P (MAP) Pulse Ox O2 Delivery O2 Flow Rate FiO2 04/10/19 04:00 98.4 88 20 125/63 (83) 97 04/10/19 04:00 82 20 97 04/10/19 00:00 98.5 84 16 125/63 (83) 99 04/10/19 00:00 76 20 97 04/09/19 21:00 Nasal Cannula 2.0 04/09/19 20:06 96 Nasal Cannula 2.0 28 04/09/19 20:00 84 18 95 04/09/19 20:00 97.2 86 20 126/60 (82) 95 04/09/19 16:19 18 04/09/19 16:00 99.5 84 18 130/57 (81) 96 04/09/19 12:31 18 04/09/19 12:00 98.9 73 18 132/57 (82) 98 Intake and Output 04/09/19 04/10/19 19:00 07:00 Intake Total 1608 ml Output Total 475 ml 485 ml Balance 1133 ml -485 ml IV Total 1608 ml Output Urine Total 450 ml 475 ml Other 25 ml 10 ml General Appearance: no acute distress HEENT: normocephalic Respiratory/Chest: chest wall non-tender Cardiovascular: normal peripheral pulses Laboratory Tests 04/10/19 05:40: White Blood Count 17.3H, Red Blood Count 4.76, Hemoglobin 14.4, Hematocrit 42.1 , Mean Corpuscular Volume 89, Mean Corpuscular Hemoglobin 30.3, Mean Corpuscular Hemoglobin Concent 34.2, Red Cell Distribution Width 11.9, Platelet Count 203, Mean Platelet Volume 6.6, Neutrophils (%) (Auto) 77.4H, Lymphocytes ( %) (Auto) 14.3L, Monocytes (%) (Auto) 7.4, Eosinophils (%) (Auto) 0.3, Basophils (%) (Auto) 0.6, Sodium Level 143, Potassium Level 4.4, Chloride Level 108H, Carbon Dioxide Level 30, Anion Gap 5, Blood Urea Nitrogen 21H, Creatinine 0.7, Estimat Glomerular Filtration Rate > 60, Glucose Level 129#H, Calcium Level 8.8, Total Bilirubin 0.4, Aspartate Amino Transf (AST/SGOT) 30, Alanine Aminotransferase (ALT/SGPT) 26, Alkaline Phosphatase 78, Total Protein 5.5L, Albumin 2.5L, Globulin 3.0, Albumin/Globulin Ratio 0.8L Current Medications Medications (Trade) Dose Ordered Sig/Jayshree Route PRN Reason Start Time Stop Time Status Last Admin Dose Admin Acetaminophen (Tylenol) 650 mg Q4H PRN ORAL Mild Pain/Temp > 100.2 04/08/19 15:30 05/08/19 15:29 Al Hydroxide/Mg Hydroxide (Mylanta) 15 ml Q4H PRN ORAL Indigestion 04/10/19 09:00 05/10/19 08:59 Alprazolam (Xanax) 0.5 mg Q6H PRN ORAL For Anxiety 04/05/19 15:45 04/12/19 15:44 Ampicillin Sodium/ Sulbactam Sodium 3 gm/Sodium Chloride 110 ml @ 220 mls/hr EVERY 6 HOURS IV 04/08/19 00:00 04/15/19 00:00 04/10/19 05:30 Chlorhexidine Gluconate (Michelle-Hex 2%) 1 applic DAILY@2000 TOPIC 04/05/19 20:00 05/05/19 19:59 04/09/19 21:44 Dextrose 1,000 ml @ 0 mls/hr Q24H PRN IV PN interrupted or unavailable 04/05/19 20:00 05/05/19 19:59 04/07/19 20:23 Dextrose (Dextrose 50%) 25 ml Q30M PRN IV Hypoglycemia 04/07/19 00:00 05/07/19 00:00 Dextrose (Dextrose 50%) 50 ml Q30M PRN IV Hypoglycemia 04/07/19 00:00 05/07/19 00:00 Diphenhydramine HCl (Benadryl) 25 mg Q6H PRN IVP Itching/Pruritis 04/10/19 09:30 04/12/19 09:29 Fat Emulsion Intravenous 192 ml/Amino Acids/ Electrolytes/ Dextrose 1,872 ml @ 78 mls/hr Q24H IV 04/07/19 20:00 05/07/19 19:59 04/09/19 21:46 Heparin Sodium (Porcine) (Heparin 5000 units/ml) 5,000 units EVERY 12 HOURS SUBQ 04/04/19 10:15 05/04/19 10:14 04/10/19 09:38 Hydromorphone HCl 30 ml @ 0 mls/hr Q24H PRN IV For Pain 04/10/19 09:30 04/12/19 09:29 Hydromorphone HCl (Dilaudid) 1 mg Q4H PRN SUBQ Severe Breakthru Pain (>7) 04/08/19 15:15 04/15/19 15:14 Insulin Aspart (NovoLOG) Q6HR SUBQ 04/07/19 00:00 05/07/19 00:00 04/09/19 23:19 Iron Sucrose 100 mg/Sodium Chloride 60 ml @ 240 mls/hr BEDTIME IV 04/06/19 21:00 04/10/19 21:14 04/09/19 21:45 Lorazepam (Ativan) 1 mg HSPRN PRN SL Sleep 04/08/19 15:30 04/15/19 15:29 Lorazepam (Ativan) 1 mg Q4H PRN SL Muscle Spasm 04/08/19 15:30 04/15/19 15:29 Metronidazole 100 ml @ 100 mls/hr EVERY 6 HOURS IV 04/08/19 00:00 04/15/19 00:00 04/10/19 05:30 Miscellaneous Medication (ROUGH RIB GRADER Rate Change) 1 ea DAILY PRN MISC rate change 04/10/19 09:30 04/12/19 09:29 Miscellaneous Medication (ROUGH RIB GRADER shift volume) 1 ea Q12HR@0700,1900 MISC 04/10/19 19:00 04/12/19 18:59 Naloxone HCl (Narcan) 0.1 mg Q1M PRN IVP RR<10/min OR SBP<90 mmHg 04/10/19 09:30 04/12/19 09:29 Ondansetron HCl (Zofran) 4 mg Q4H PRN IVP Nausea & Vomiting 04/08/19 15:30 05/08/19 15:29 04/10/19 09:37 Pantoprazole (Protonix) 40 mg DAILY IVP 04/11/19 09:00 05/11/19 08:59 Phytonadione (Vitamin K) 10 mg ONCE A WEEK SUBQ 04/13/19 09:00 05/13/19 08:59 Sodium 1,000 ml @ 75 mls/hr [id number] IV 04/10/19 09:30 05/09/19 09:29 04/10/19 09:37 Dk Summers MD Apr 10, 2019 11:52
--- NOTE | 2019-04-10 19:19 | NUR ---
HAND-OFF: Report given to Yuri RN, pt in stable condition. - During my shift pt was able to ambulate around the unit x2 with steady gait and the use of a FWW. I&O's Ileostomy: 5ml Horne cath: 500ml intake: NPO x ice chips and meds
--- NOTE | 2019-04-10 19:30 | NUR ---
NURSE NOTES: Receive a report from EUSEBIO Tijerina. Round is done. Pt is awake and alert. No acute distress noted. Surgery site dressing kept dry and clean. No leaking noted around ileostomy bag. Pinkish output noted via ileostomy. No N/V noted. TPN and fluid are running via PICC on JARED. Concentrated urine is patent via genao catheter. On ENVIRONMENTAL AIDE only bolus to control pain. Encourage to use I/S every hour while awake. Call light within reach. Will continue to monitor.
--- NOTE | 2019-04-10 21:00 | NUR ---
NURSE NOTES: Spo2 remained 93-94% in RA. No respiratory distress noted. Continue to apply O2 2L NC. Will continue to monitor.
[2019-04-10] MEDS: Dyna-Hex 2% Top Sol 2oz TOPIC SCH (21:16)
[2019-04-10] MEDS: Iron Sucrose 100 MG in NS 55 ML IV SCH (21:16)
[2019-04-10] MEDS: TPN IV SCH (21:17)
[2019-04-10] MEDS: FAT EMULSION 20% IV SCH (21:17)
--- NOTE | 2019-04-10 23:00 | NUR ---
NURSE NOTES: After getting Zofran for nausea, pt feels less nauseated. Will continue to monitor.
[2019-04-11] VITALS: BP 131/68
[2019-04-11] MEDS: Ampicillin/Sulbactam Sod 3 GM in NS 110 ML IV SCH ×4 (00:05→17:14)
[2019-04-11] MEDS: NovoLOG Insulin Flexpen SUBQ SCH ×4 (00:17→17:15)
[2019-04-11] MEDS: HYDROmorphone 1mg/ml Carpuject SUBQ PRN ×3 (02:35→19:37)
--- NOTE | 2019-04-11 02:35 | NUR ---
NURSE NOTES: Pt is awake and states, " I don't think this one work," pointing at GINNER button. Pain level is 7/10 by pt's remark. Given prn pain medication as ordered. Will continue to monitor.
--- NOTE | 2019-04-11 03:05 | NUR ---
NURSE NOTES: Pain level dropped to 3/10 and feeling comfortable. No N/V noted. Not much output noted via Madison Ileostomy. Small amount of oozing noted on vertical gauze. Reinforced dressing. Will continue to monitor.
[2019-04-11 04:00] VITALS: BP 129/78
--- NOTE | 2019-04-11 06:00 | NUR ---
NURSE NOTES: No acute distress/respiratory distress noted. Spo2 97-99% with O2 2L NC. After pain medication pain level remained with 3/10. Stoma is pink. No leaking noted around the ileostomy bag. Dressing kept dry and clean. Madison ileostomy output is little as 10ml pinkish. Will continue to monitor. 12hr output Urine: 525ml-concentrated color Madison Ileostomy: 10ml-pinkish
[2019-04-11 06:23] LABS: BASOPHILS % (AUTO) 0.9 % (0.0-2.0); EOSINOPHILS % (AUTO) 1.3 % (0.0-3.0); HEMATOCRIT 35.9 % (37.0-47.0); HEMOGLOBIN 12.3 G/DL (12.0-16.0); LYMPHOCYTES % (AUTO) 16.4 % (20.0-45.0); MEAN CORPUSCULAR VOLUME 88 FL (80-99); MONOCYTES % (AUTO) 6.6 % (1.0-10.0); NEUTROPHILS % (AUTO) 74.8 % (45.0-75.0); PLATELET COUNT 155 K/UL (150-450); RED BLOOD COUNT 4.06 M/UL (4.20-5.40); WHITE BLOOD COUNT 11.5 K/UL (4.8-10.8)
[2019-04-11 06:43] LABS: ANION GAP 6 mmol/L (5-15); BLOOD UREA NITROGEN 17 mg/dL (7-18); CALCIUM 8.4 MG/DL (8.5-10.1); CARBON DIOXIDE 29 MMOL/L (21-32); CHLORIDE 107 MMOL/L (98-107); CREATININE 0.5 MG/DL (0.55-1.30); SODIUM 142 MMOL/L (136-145)
--- NOTE | 2019-04-11 07:15 | NUR ---
HAND-OFF: Report given to EUSEBIO Huerta.
[2019-04-11] MEDS: PCA shift volume MISC SCH ×2 (07:25→19:00)
[2019-04-11 08:00] VITALS: BP 146/68
--- NOTE | 2019-04-11 08:07 | NUR ---
NURSE NOTES: Received report from Yuri RN, pt a/a/o x4 laying in bed with no signs of distress or other issues at this time. Madison ileostomy draining well, total night monitor output: 10ml. Horne cath draining to gravity, total night monitor out put: 525ml. PICC line in place running Dilaudid MULE DEVELOPER and D51/2 NS+20mEq@75ml/hr. call light within reach, bed in lowest position. side rales up x2. I will f/u as needed.
[2019-04-11] MEDS: Heparin 5000 units/ml inj SUBQ SCH ×2 (08:54→21:22)
[2019-04-11] MEDS: Pantoprazole Inj IVP SCH (08:55)
[2019-04-11] MEDS: 1/2NS w/KCl 20mEq 1000ml 1,000 ML IV SCH ×2 (08:55→09:30)
--- NOTE | 2019-04-11 09:19 | General Progress Note ---
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 Ambulated twice yesterday Abdomen soft, mild distention, stoma pink, incisions clean Urine 825 Ileostomy nil serous only WBC down 11,500 BUN down 17 Cr 0.5 Imp: ileus Plan: continue npo, TPN, Blair Escobar MD Apr 11, 2019 09:19
[2019-04-11] MEDS ORDERED: ALPRAZolam 0.5mg tab ORAL PRN (09:30)
[2019-04-11] MEDS ORDERED: Naloxone 0.4mg/ml Inj IVP PRN (09:30)
[2019-04-11] MEDS ORDERED: Rate Change PCA 1 Each MISC PRN (09:30)
[2019-04-11] MEDS ORDERED: PCA HYDROmorphone 1mg/ml 30 ML IV PRN (09:30)
[2019-04-11] MEDS ORDERED: DiphenhydrAMINE 50mg/ml Inj IVP PRN (09:30)
[2019-04-11 12:00] VITALS: BP 143/67
--- NOTE | 2019-04-11 13:10 | Pulmonology Progress Note ---
Assessment/Plan Assessment/Plan IMPRESSION: 1. 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 2. History of pulmonary embolism. 3. History of IVC filter. None seen on imaging. 4. Chronic anticoagulation with Xarelto. 5. History of proctocolectomy. 6. Ulcerative colitis. 7. Bravo pouch with recent issues intubation. 8. History of left lung carcinoma, status post lobectomy. 9. History of recently diagnosed right lung carcinoma, scheduled for resection stage IB. DISCUSSION: S/p laparotomy She has chronic DVT L side I would recommend avoiding full anticoagulation given her complex abdominal surgery and only continue sub cut heparin. Will begin Xarelto once she is cleared from surgery Continue sub cut heparin I will follow as nurse midwife. She will be scheduled for right lung surgery after her current GI issues resolve, which is appropriate. Dk Summers M.D. Subjective Interval Events: None new Constitutional: Reports: no symptoms HEENT: Repors: no symptoms Respiratory: Reports: no symptoms Cardiovascular: Reports: no symptoms Allergies: Coded Allergies: No Known Allergies (Unverified , 04/03/19) Objective Last 24 Hour Vital Signs Date Time Temp Pulse Resp B/P (MAP) Pulse Ox O2 Delivery O2 Flow Rate FiO2 04/11/19 12:00 98.4 98 20 143/67 (92) 98 04/11/19 12:00 98 20 100 04/11/19 09:26 99.1 04/11/19 09:00 Nasal Cannula 2.0 04/11/19 08:45 98 Nasal Cannula 2.0 28 04/11/19 08:00 98.6 99 18 146/68 (94) 98 04/11/19 08:00 99 16 98 04/11/19 04:00 99.1 85 18 129/78 (95) 97 04/11/19 04:00 85 18 97 04/11/19 00:00 96 21 98 04/11/19 00:00 98.9 96 21 131/68 (89) 98 04/10/19 21:00 Nasal Cannula 2.0 04/10/19 20:00 95 17 98 04/10/19 20:00 98.8 95 17 135/69 (91) 98 04/10/19 16:00 99.3 90 21 137/70 (92) 95 04/10/19 16:00 90 21 99 Intake and Output 04/10/19 04/11/19 19:00 07:00 Intake Total 936 ml 1696 ml Output Total 505 ml 535 ml Balance 431 ml 1161 ml IV Total 936 ml 1696 ml Output Urine Total 500 ml 525 ml Other 5 ml 10 ml General Appearance: no acute distress HEENT: normocephalic Respiratory/Chest: chest wall non-tender, lungs clear Cardiovascular: normal peripheral pulses Abdomen: soft, non tender Laboratory Tests 04/11/19 05:05: White Blood Count 11.5H, Red Blood Count 4.06L, Hemoglobin 12.3, Hematocrit 35.9L, Mean Corpuscular Volume 88, Mean Corpuscular Hemoglobin 30.4, Mean Corpuscular Hemoglobin Concent 34.4, Red Cell Distribution Width 12.0, Platelet Count 155, Mean Platelet Volume 7.0, Neutrophils (%) (Auto) 74.8, Lymphocytes (% ) (Auto) 16.4L, Monocytes (%) (Auto) 6.6, Eosinophils (%) (Auto) 1.3, Basophils (%) (Auto) 0.9, Sodium Level 142, Potassium Level 4.0, Chloride Level 107, Carbon Dioxide Level 29, Anion Gap 6, Blood Urea Nitrogen 17, Creatinine 0.5L, Estimat Glomerular Filtration Rate > 60, Glucose Level 174H, Calcium Level 8.4L Current Medications Medications (Trade) Dose Ordered Sig/Jayshree Route PRN Reason Start Time Stop Time Status Last Admin Dose Admin Acetaminophen (Tylenol) 650 mg Q4H PRN ORAL Mild Pain/Temp > 100.2 04/08/19 15:30 05/08/19 15:29 Al Hydroxide/Mg Hydroxide (Mylanta) 15 ml Q4H PRN ORAL Indigestion 04/10/19 09:00 05/10/19 08:59 04/10/19 14:44 Alprazolam (Xanax) 0.5 mg Q6H PRN ORAL For Anxiety 04/11/19 09:30 04/18/19 09:29 Ampicillin Sodium/ Sulbactam Sodium 3 gm/Sodium Chloride 110 ml @ 220 mls/hr EVERY 6 HOURS IV 04/08/19 00:00 04/15/19 00:00 04/11/19 12:01 Chlorhexidine Gluconate (Michelle-Hex 2%) 1 applic DAILY@2000 TOPIC 04/05/19 20:00 05/05/19 19:59 04/10/19 21:16 Dextrose 1,000 ml @ 0 mls/hr Q24H PRN IV PN interrupted or unavailable 04/05/19 20:00 05/05/19 19:59 04/07/19 20:23 Dextrose (Dextrose 50%) 25 ml Q30M PRN IV Hypoglycemia 04/07/19 00:00 05/07/19 00:00 Dextrose (Dextrose 50%) 50 ml Q30M PRN IV Hypoglycemia 04/07/19 00:00 05/07/19 00:00 Diphenhydramine HCl (Benadryl) 25 mg Q6H PRN IVP Itching/Pruritis 04/11/19 09:30 04/13/19 09:29 Fat Emulsion Intravenous 192 ml/Amino Acids/ Electrolytes/ Dextrose 1,872 ml @ 78 mls/hr Q24H IV 04/07/19 20:00 05/07/19 19:59 04/10/19 21:17 Heparin Sodium (Porcine) (Heparin 5000 units/ml) 5,000 units EVERY 12 HOURS SUBQ 04/04/19 10:15 05/04/19 10:14 04/11/19 08:54 Hydromorphone HCl 30 ml @ 0 mls/hr Q24H PRN IV For Pain 04/11/19 09:30 04/13/19 09:29 Hydromorphone HCl (Dilaudid) 1 mg Q4H PRN SUBQ Severe Breakthru Pain (>7) 04/08/19 15:15 04/15/19 15:14 04/11/19 08:56 Insulin Aspart (NovoLOG) Q6HR SUBQ 04/07/19 00:00 05/07/19 00:00 04/11/19 00:17 Lorazepam (Ativan) 1 mg HSPRN PRN SL Sleep 04/08/19 15:30 04/15/19 15:29 Lorazepam (Ativan) 1 mg Q4H PRN SL Muscle Spasm 04/08/19 15:30 04/15/19 15:29 Miscellaneous Medication (ABA TUTOR Rate Change) 1 ea DAILY PRN MISC rate change 04/11/19 09:30 04/13/19 09:29 Miscellaneous Medication (ABA TUTOR shift volume) 1 ea Q12HR@0700,1900 MISC 04/11/19 19:00 04/13/19 18:59 Naloxone HCl (Narcan) 0.1 mg Q1M PRN IVP RR<10/min OR SBP<90 mmHg 04/11/19 09:30 04/13/19 09:29 Ondansetron HCl (Zofran) 4 mg Q4H PRN IVP Nausea & Vomiting 04/08/19 15:30 05/08/19 15:29 04/11/19 08:55 Pantoprazole (Protonix) 40 mg DAILY IVP 04/11/19 09:00 05/11/19 08:59 04/11/19 08:55 Phytonadione (Vitamin K) 10 mg ONCE A WEEK SUBQ 04/13/19 09:00 05/13/19 08:59 Sodium 1,000 ml @ 30 mls/hr Q24H IV 04/11/19 09:30 05/09/19 09:29 04/11/19 09:30 Dk Summers MD Apr 11, 2019 13:10
[2019-04-11] MEDS ORDERED: Tubing IV Secondary IV ONE (13:40)
[2019-04-11 16:00] VITALS: BP 139/70
--- NOTE | 2019-04-11 19:32 | NUR ---
HAND-OFF: Report given to Misa KAPLAN, pt in stable condition. - During my shift pt was able to ambulate around the unit with physical therapy, and the use a FWW. I&O's Ileostomy: 10ml Horne cath: 500ml oral intake: NPO X ice chips and meds Blood Sugar: 139, 160
--- NOTE | 2019-04-11 19:35 | NUR ---
NURSE NOTES: Receive a report from EUSEBIO Huerta. Round is done. Pt is awake and alert, but complains for severe pain. Breathing is even and non labored. No respiratory distress noted. Madison ileostomy site is clear and noted small pinkish output noted. Surgical site dressing kept dry and clean. Concentrated urine is patent via genao catheter. TPN and fluid are running via PICC on JARED. Call light within reach. Will provide pain medication as ordered.
[2019-04-11] MEDS: Dyna-Hex 2% Top Sol 2oz TOPIC SCH (19:50)
[2019-04-11 20:00] VITALS: BP 159/77
--- NOTE | 2019-04-11 21:00 | NUR ---
NURSE NOTES: After pain medication, pain level decreased by 3/10. Given Zofran for nausea. No vomiting noted. Encourage I/S every hour while awake. Will continue to monitor.
[2019-04-11] MEDS: TPN IV SCH (21:21)
[2019-04-11] MEDS: FAT EMULSION 20% IV SCH (21:21)
[2019-04-12] VITALS: BP 155/78
[2019-04-12] MEDS: Ampicillin/Sulbactam Sod 3 GM in NS 110 ML IV SCH ×5 (00:13→23:49)
[2019-04-12] MEDS: NovoLOG Insulin Flexpen SUBQ SCH ×5 (00:25→23:56)
[2019-04-12] MEDS: HYDROmorphone 1mg/ml Carpuject SUBQ PRN (00:29)
--- NOTE | 2019-04-12 00:30 | NUR ---
NURSE NOTES: Given Dilaudid 1mg subq for pain control by pt's request. No respiratory distress noted. On O2 2L NC with monitoring eCO2. Nausea relieved. Will continue to monitor.
[2019-04-12 04:00] VITALS: BP_SYST 153; BP_DIAS 76; BP_DIAS 78
--- NOTE | 2019-04-12 04:30 | NUR ---
NURSE NOTES: Pt is awake and alert without acute distress but feeling nauseated. Jeri Newman IVS. Make herself comfortable. After sipt out small amount of saliva, felt a little bit better. Will continue to monitor.
[2019-04-12 05:34] LABS: BASOPHILS % (AUTO) 0.8 % (0.0-2.0); EOSINOPHILS % (AUTO) 2.7 % (0.0-3.0); HEMATOCRIT 38.8 % (37.0-47.0); HEMOGLOBIN 13.2 G/DL (12.0-16.0); LYMPHOCYTES % (AUTO) 17.1 % (20.0-45.0); MEAN CORPUSCULAR VOLUME 89 FL (80-99); NEUTROPHILS % (AUTO) 73.4 % (45.0-75.0); PLATELET COUNT 204 K/UL (150-450); RED BLOOD COUNT 4.34 M/UL (4.20-5.40); RED CELL DISTRIBUTION WIDTH 11.9 % (11.6-14.8); WHITE BLOOD COUNT 11.5 K/UL (4.8-10.8)
[2019-04-12 05:53] LABS: ALANINE AMINOTRANSFERASE 23 U/L (12-78); ALBUMIN/GLOBULIN RATIO 0.6 (1.0-2.7); ALKALINE PHOSPHATASE 74 U/L (46-116); ANION GAP 2 mmol/L (5-15); ASPARTATE AMINO TRANSFERASE 19 U/L (15-37); BILIRUBIN,TOTAL 0.4 MG/DL (0.2-1.0); BLOOD UREA NITROGEN 15 mg/dL (7-18); CALCIUM 8.6 MG/DL (8.5-10.1); CARBON DIOXIDE 34 MMOL/L (21-32); CHLORIDE 107 MMOL/L (98-107); CREATININE 0.6 MG/DL (0.55-1.30); PHOSPHORUS 2.1 MG/DL (2.5-4.9); POTASSIUM 4.3 MMOL/L (3.5-5.1); SODIUM 142 MMOL/L (136-145)
--- NOTE | 2019-04-12 06:00 | NUR ---
NURSE NOTES: Nausea is on and off. After vomiting of 60ml greenish, nausea sense relieve. Still small pinkish-serous output via Madison ileostomy. Pain is tolerating. Offer pain medication but refuses to get it at this time. Will continue to monitor. 12hr output Urine: 540ml Madison Ileostomy: 5ml Emesis: 60ml-greenish
[2019-04-12] MEDS: PCA shift volume MISC SCH ×2 (07:00→19:20)
--- NOTE | 2019-04-12 07:30 | NUR ---
HAND-OFF: Report given to EUSEBIO Mayes. Round is done.
--- NOTE | 2019-04-12 07:45 | NUR ---
NURSE NOTES: Received report from Gho RN. Patient is awake and oriented, no acute distress noted, reporting no pain at this time, but reporting nausea, will medicate with Zofran as needed when due. Surgical site dressing clean and dry, external appliance over guillaume ileostomy intact, no leaks, draining small amount of reddish/brown output, genao to gravity drainage. RESPIRATORY PHYSICIAN settings checked and verified against order. Patient updated on plan of care for the day. Side rails upx2, bed low and locked, call light within reach.
[2019-04-12 08:00] VITALS: BP 152/84
--- NOTE | 2019-04-12 08:52 | NUR ---
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
--- NOTE | 2019-04-12 09:00 | NUR ---
NURSE NOTES: Right leg circumference: 36cm Left leg circumference: 38.5cm
[2019-04-12] MEDS ORDERED: Naloxone 0.4mg/ml Inj IVP PRN (09:25)
[2019-04-12] MEDS ORDERED: Rate Change PCA 1 Each MISC PRN (09:30)
[2019-04-12] MEDS ORDERED: PCA HYDROmorphone 1mg/ml 30 ML IV PRN (09:30)
[2019-04-12] MEDS ORDERED: DiphenhydrAMINE 50mg/ml Inj IVP PRN (09:30)
--- NOTE | 2019-04-12 09:36 | General Progress Note ---
Progress Note Progress Note AVSS Nausea and abdominal distention with no ileostomy output yet. Incision clean WBC 11,500 Hgb 13.2 BUN down 15 Cr 0.6 Phos low 2.1 Urine 1040 Imp: Ileus with nausea, small emesis Plan; Reglan 10mg IV q6h; transderm scop.patch; continue Zofran prn f/u labs Blair York MD Apr 12, 2019 09:36
[2019-04-12] MEDS ORDERED: TransDerm Scop 1.5mg/72HR Patch TDERMAL SCH (09:40)
[2019-04-12] MEDS ORDERED: Potassium Phosphate 20 MM in NS 275 ML IV ONE (10:00)
[2019-04-12] MEDS: Heparin 5000 units/ml inj SUBQ SCH ×2 (10:19→20:23)
[2019-04-12] MEDS: Metoclopramide 10mg/2ml Inj IVP SCH ×3 (10:19→21:46)
[2019-04-12] MEDS: Pantoprazole Inj IVP SCH (10:19)
[2019-04-12] MEDS: 1/2NS w/KCl 20mEq 1000ml 1,000 ML IV SCH (10:20)
--- NOTE | 2019-04-12 10:45 | Pulmonology Progress Note ---
Assessment/Plan Assessment/Plan IMPRESSION: 1. 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 2. History of pulmonary embolism. 3. History of IVC filter. None seen on imaging. 4. Chronic anticoagulation with Xarelto. 5. History of proctocolectomy. 6. Ulcerative colitis. 7. Bravo pouch with recent issues intubation. 8. History of left lung carcinoma, status post lobectomy. 9. History of recently diagnosed right lung carcinoma, scheduled for resection stage IB. DISCUSSION: S/p laparotomy She has chronic DVT L side I would recommend avoiding full anticoagulation given her complex abdominal surgery and only continue sub cut heparin. Will begin Xarelto once she is cleared from surgery Continue sub cut heparin I will follow as health program analyst. She will be scheduled for right lung surgery after her current GI issues resolve, which is appropriate. Dk Summers M.D. Subjective Interval Events: No new reporterd complaints Constitutional: Reports: no symptoms HEENT: Repors: no symptoms Respiratory: Reports: no symptoms Cardiovascular: Reports: no symptoms Gastrointestinal/Abdominal: Reports: no symptoms Allergies: Coded Allergies: No Known Allergies (Unverified , 04/03/19) Objective Last 24 Hour Vital Signs Date Time Temp Pulse Resp B/P (MAP) Pulse Ox O2 Delivery O2 Flow Rate FiO2 04/12/19 08:00 18 04/12/19 08:00 99.6 89 18 152/84 (106) 95 04/12/19 04:00 89 18 98 04/12/19 04:00 97.6 89 18 153/76 (101) 98 04/12/19 00:00 95 18 95 04/12/19 00:00 98.2 95 18 155/78 (103) 95 04/11/19 21:00 Nasal Cannula 2.0 04/11/19 20:00 99.6 95 20 159/77 (104) 96 04/11/19 20:00 90 22 96 04/11/19 19:36 94 Nasal Cannula 2.0 28 04/11/19 16:00 95 18 100 04/11/19 16:00 98.9 95 20 139/70 (93) 98 04/11/19 12:00 98.4 98 20 143/67 (92) 98 04/11/19 12:00 98 20 100 Intake and Output 04/11/19 04/12/19 19:00 07:00 Intake Total 858 ml 1188 ml Output Total 510 ml 605 ml Balance 348 ml 583 ml IV Total 858 ml 1188 ml Output Urine Total 500 ml 540 ml Emesis 60 ml Other 10 ml 5 ml General Appearance: no acute distress HEENT: normocephalic Respiratory/Chest: chest wall non-tender, lungs clear Cardiovascular: normal peripheral pulses Abdomen: soft, non tender Laboratory Tests 04/12/19 04:35: White Blood Count 11.5H, Red Blood Count 4.34, Hemoglobin 13.2, Hematocrit 38.8 , Mean Corpuscular Volume 89, Mean Corpuscular Hemoglobin 30.3, Mean Corpuscular Hemoglobin Concent 33.9, Red Cell Distribution Width 11.9, Platelet Count 204, Mean Platelet Volume 7.6, Neutrophils (%) (Auto) 73.4, Lymphocytes (% ) (Auto) 17.1L, Monocytes (%) (Auto) 6.0, Eosinophils (%) (Auto) 2.7, Basophils (%) (Auto) 0.8, Sodium Level 142, Potassium Level 4.3, Chloride Level 107, Carbon Dioxide Level 34H, Anion Gap 2L, Blood Urea Nitrogen 15, Creatinine 0.6, Estimat Glomerular Filtration Rate > 60, Glucose Level 173H, Calcium Level 8.6, Phosphorus Level 2.1L, Magnesium Level 1.8, Total Bilirubin 0.4, Aspartate Amino Transf (AST/SGOT) 19, Alanine Aminotransferase (ALT/SGPT) 23, Alkaline Phosphatase 74, Total Protein 5.2L, Albumin 2.0L, Globulin 3.2, Albumin/ Globulin Ratio 0.6L Current Medications Medications (Trade) Dose Ordered Sig/Jayshree Route PRN Reason Start Time Stop Time Status Last Admin Dose Admin Acetaminophen (Tylenol) 650 mg Q4H PRN ORAL Mild Pain/Temp > 100.2 04/08/19 15:30 05/08/19 15:29 Al Hydroxide/Mg Hydroxide (Mylanta) 15 ml Q4H PRN ORAL Indigestion 04/10/19 09:00 05/10/19 08:59 04/10/19 14:44 Alprazolam (Xanax) 0.5 mg Q6H PRN ORAL For Anxiety 04/11/19 09:30 04/18/19 09:29 Ampicillin Sodium/ Sulbactam Sodium 3 gm/Sodium Chloride 110 ml @ 220 mls/hr EVERY 6 HOURS IV 04/08/19 00:00 04/15/19 00:00 04/12/19 05:58 Chlorhexidine Gluconate (Michelle-Hex 2%) 1 applic DAILY@2000 TOPIC 04/05/19 20:00 05/05/19 19:59 04/11/19 19:50 Dextrose 1,000 ml @ 0 mls/hr Q24H PRN IV PN interrupted or unavailable 04/05/19 20:00 05/05/19 19:59 04/07/19 20:23 Dextrose (Dextrose 50%) 25 ml Q30M PRN IV Hypoglycemia 04/07/19 00:00 05/07/19 00:00 Dextrose (Dextrose 50%) 50 ml Q30M PRN IV Hypoglycemia 04/07/19 00:00 05/07/19 00:00 Diphenhydramine HCl (Benadryl) 25 mg Q6H PRN IVP Itching/Pruritis 04/12/19 09:30 04/14/19 09:29 Fat Emulsion Intravenous 192 ml/Amino Acids/ Electrolytes/ Dextrose 1,872 ml @ 78 mls/hr Q24H IV 04/07/19 20:00 05/07/19 19:59 04/11/19 21:21 Heparin Sodium (Porcine) (Heparin 5000 units/ml) 5,000 units EVERY 12 HOURS SUBQ 04/04/19 10:15 05/04/19 10:14 04/12/19 10:19 Hydromorphone HCl 30 ml @ 0 mls/hr Q24H PRN IV For Pain 04/12/19 09:30 04/14/19 09:29 Hydromorphone HCl (Dilaudid) 1 mg Q4H PRN SUBQ Severe Breakthru Pain (>7) 04/08/19 15:15 04/15/19 15:14 04/12/19 00:29 Insulin Aspart (NovoLOG) Q6HR SUBQ 04/07/19 00:00 05/07/19 00:00 04/12/19 06:20 Lorazepam (Ativan) 1 mg HSPRN PRN SL Sleep 04/08/19 15:30 04/15/19 15:29 Lorazepam (Ativan) 1 mg Q4H PRN SL Muscle Spasm 04/08/19 15:30 04/15/19 15:29 Metoclopramide HCl (Reglan) 10 mg Q6H IVP 04/12/19 09:45 05/12/19 09:44 04/12/19 10:19 Miscellaneous Medication (DANCE CHOREOGRAPHER Rate Change) 1 ea DAILY PRN MISC rate change 04/12/19 09:30 04/14/19 09:29 Miscellaneous Medication (DANCE CHOREOGRAPHER shift volume) 1 ea Q12HR@0700,1900 MISC 04/12/19 19:00 04/14/19 18:59 Naloxone HCl (Narcan) 0.1 mg Q1M PRN IVP RR<10/min OR SBP<90 mmHg 04/12/19 09:25 04/14/19 09:23 Ondansetron HCl (Zofran) 4 mg Q4H PRN IVP Nausea & Vomiting 04/08/19 15:30 05/08/19 15:29 04/12/19 04:18 Pantoprazole (Protonix) 40 mg DAILY IVP 04/11/19 09:00 05/11/19 08:59 04/12/19 10:19 Phytonadione (Vitamin K) 10 mg ONCE A WEEK SUBQ 04/13/19 09:00 05/13/19 08:59 Potassium Phosphate 20 mm/ Sodium Chloride 281.6667 ml @ 46.944 m... ONCE ONCE IV 04/12/19 10:00 04/12/19 15:59 04/12/19 10:20 Sodium 1,000 ml @ 30 mls/hr Q24H IV 04/11/19 09:30 05/09/19 09:29 04/12/19 10:20 Dk Summers MD Apr 12, 2019 10:45
[2019-04-12 12:00] VITALS: BP 144/77
--- NOTE | 2019-04-12 13:49 | NUR ---
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 CURRENT DIET:NPO PARENTERAL NUTRITION RECOMMENDATIONS: D/AA Rate: 70 IL Rate: 8 Total Rate: 78 Volume: 1872 % Dextrose: 19 % AA: 5.4 Energy (kcals/kg): 1832 Protein (g/kg protein): 91 Nonprotein KCALS: 1469 GIR (mg CHO/kg/min): 3.1 % Fat KCALS: 21 NCP: N Ratio: 101:1 TPN Comment: - D19% + AA 5.4% @70ml/hr with IL 20% @8ml/hr-> all 3:1. - Goal rate of 78ml/hr x24 hrs - TPN at goal meets 100% est needs, provides 30 kcal per adj kg and 1.5g/adj kg pro. - GIR <5 - IL <30% ADDITIONAL RECOMMENDATIONS: 1) Obtain a standing weight as able 2) Monitor BG, lytes, LFT's w/ TPN, need for formulary adjustments 3) Added D5 now dc'd, will monitor BG; need for TPN formulary and/ or rate change
[2019-04-12 16:00] VITALS: BP 145/74
--- NOTE | 2019-04-12 18:45 | NUR ---
NURSE NOTES: Noted swelling to left arm (PICC side), arm warm to touch, patient denies pain. Left upper arm circumference: 31cm, Left lower forearm circumference: 27cm. Called Dr. York and reported findings to MD via voicemail. Awaiting callback.
--- NOTE | 2019-04-12 19:00 | NUR ---
NURSE NOTES: Total ileo output for shift: 25mL Total urine output: 500mL Patient's nausea well managed, no episodes of emesis, patient ambulated in hallway x1.
--- NOTE | 2019-04-12 19:21 | NUR ---
NURSE NOTES: Placed second call to Dr. York regarding left arm swelling, left voicemail.
--- NOTE | 2019-04-12 19:22 | NUR ---
HAND-OFF: Report given to Yuri KAPLAN.
--- NOTE | 2019-04-12 19:30 | NUR ---
NURSE NOTES: Receive a report from EUSEBIO Mayes. Round is done. Pt is awake and alert but still feeling nauseated. Pain is 4/10 tolerating. Spo2 remained 94-95% in RA without respiratory distress or dyspnea. Surgery site dressing kept dry and clean. Noted scant amount serous output via ileostomy. Noted left arm swelling without redness, pain or any change of sensory. PICC working well and TPN and fluid are running on JARED. Left one more message to Dr. York by AM nurse. Call light within reach. Will continue to monitor.
--- NOTE | 2019-04-12 19:45 | NUR ---
NURSE NOTES: Receive a call from Dr. York and get orders to elevated left arm with pillows and check Duplex Scan in the morning. Will continue to monitor.
--- NOTE | 2019-04-12 19:50 | NUR ---
NURSE NOTES: Pt had bile color vomiting 50ml. Provide oral care at bed side. Will give medication as needed. Given information for Dr. York's order. Elevated left arm with pillow. Will continue to monitor.
[2019-04-12 20:00] VITALS: BP 149/76
[2019-04-12] MEDS: Dyna-Hex 2% Top Sol 2oz TOPIC SCH (20:22)
[2019-04-12] MEDS: TPN IV SCH (20:24)
[2019-04-12] MEDS: FAT EMULSION 20% IV SCH (20:24)
--- NOTE | 2019-04-12 21:30 | NUR ---
NURSE NOTES: PICC site dressing changed done. Noted old discoloration around the PICC line. No pain noted. The insertion site is clean. Noted increased BS but no output noted yet. Encourage I/S and done 5 times twice. Spo2 noted 92% in RA. Reapply O2 2L NC. No dyspnea/ wheezing noted. Doing I/S made pt enough cough. Pain is tolerating. Will continue to monitor.
[2019-04-13] VITALS: BP 138/68
[2019-04-13] MEDS: HYDROmorphone 1mg/ml Carpuject SUBQ PRN (00:01)
--- NOTE | 2019-04-13 01:00 | NUR ---
NURSE NOTES: After pain medication pt is asleep comfortably. Will continue to monitior.
[2019-04-13 04:00] VITALS: BP 139/70
--- NOTE | 2019-04-13 04:00 | NUR ---
NURSE NOTES: No vomiting noted but intermittent nausea noted. Given medication as ordered. Kept left arm elevated. Will continue to monitor.
[2019-04-13] MEDS: Metoclopramide 10mg/2ml Inj IVP SCH ×4 (04:09→21:06)
[2019-04-13 05:15] LABS: BASOPHILS % (AUTO) 0.9 % (0.0-2.0); EOSINOPHILS % (AUTO) 3.5 % (0.0-3.0); HEMATOCRIT 34.6 % (37.0-47.0); HEMOGLOBIN 11.9 G/DL (12.0-16.0); LYMPHOCYTES % (AUTO) 17.5 % (20.0-45.0); MEAN CORPUSCULAR VOLUME 89 FL (80-99); MONOCYTES % (AUTO) 10.3 % (1.0-10.0); NEUTROPHILS % (AUTO) 67.9 % (45.0-75.0); PLATELET COUNT 214 K/UL (150-450); RED BLOOD COUNT 3.91 M/UL (4.20-5.40); RED CELL DISTRIBUTION WIDTH 11.9 % (11.6-14.8); WHITE BLOOD COUNT 11.7 K/UL (4.8-10.8)
[2019-04-13 05:27] LABS: ALANINE AMINOTRANSFERASE 19 U/L (12-78); ALBUMIN 1.9 G/DL (3.4-5.0); ALBUMIN/GLOBULIN RATIO 0.6 (1.0-2.7); ALKALINE PHOSPHATASE 87 U/L (46-116); ANION GAP 4 mmol/L (5-15); ASPARTATE AMINO TRANSFERASE 19 U/L (15-37); BILIRUBIN,TOTAL 0.4 MG/DL (0.2-1.0); BLOOD UREA NITROGEN 16 mg/dL (7-18); CALCIUM 8.2 MG/DL (8.5-10.1); CARBON DIOXIDE 31 MMOL/L (21-32); CHLORIDE 108 MMOL/L (98-107); CREATININE 0.5 MG/DL (0.55-1.30); PHOSPHORUS 2.5 MG/DL (2.5-4.9); POTASSIUM 3.9 MMOL/L (3.5-5.1); SODIUM 142 MMOL/L (136-145)
--- NOTE | 2019-04-13 06:00 | NUR ---
NURSE NOTES: BS increased but still serous small amount of output noted. Pt wants to walk and assist ambulation the unit. Will continue to monitor. 12 hour output Urine: 430ml Ileostomy: 10ml Emesis: 50ml-bile color
[2019-04-13] MEDS: Ampicillin/Sulbactam Sod 3 GM in NS 110 ML IV SCH ×3 (06:05→17:55)
[2019-04-13] MEDS: NovoLOG Insulin Flexpen SUBQ SCH ×3 (06:09→17:59)
[2019-04-13] MEDS: PCA shift volume MISC SCH ×2 (07:18→19:00)
--- NOTE | 2019-04-13 07:45 | NUR ---
NURSE NOTES: Received report from Gho RN. Patient is awake and oriented, no acute distress noted, reporting no pain at this time, GUIDE ALPINE settings checked and verified against order, patient on NC. Left arm elevated, mild swelling noted around PICC line, patient denies pain in left arm. IVF and TPN running per order. External appliance over guillaume ileostomy in place with no leaks noted. Patient updated on plan of care for the day. Side rails upx2, bed low and locked, call light within reach.
[2019-04-13 08:00] VITALS: BP 140/70
[2019-04-13] MEDS ORDERED: Naloxone 0.4mg/ml Inj IVP PRN (08:11)
--- NOTE | 2019-04-13 08:12 | NUR ---
NURSE NOTES: Venous duplex order changed to STAT. Called Christi from vascular and per tech she is on her way now to do scan.
[2019-04-13] MEDS ORDERED: Rate Change PCA 1 Each MISC PRN (08:15)
--- NOTE | 2019-04-13 08:31 | General Progress Note ---
Progress Note Progress Note AVSS Still with episodes bilious emesis, small volume. Abdomen remains distended and no ileostomy output, stoma pink Ambulated already today Urine output low and increased lower extremity edema Now with swelling left upper extremity where PICC is located WBC 11,700 Mg 1.7 Albumin 1.9 Imp: Persistent ileus Swelling left arm with PICC Plan:Duplex scan left upper extremity continue npo and TPN Lasix 40mg IV STAT continue Horne today Blair York MD Apr 13, 2019 08:31
[2019-04-13] MEDS: Pantoprazole Inj IVP SCH (08:51)
[2019-04-13] MEDS: Heparin 5000 units/ml inj SUBQ SCH ×2 (08:52→21:06)
[2019-04-13] MEDS ORDERED: Phytonadione 10 mg/mL 1ml amp SUBQ SCH (09:00)
[2019-04-13] MEDS ORDERED: PCA HYDROmorphone 1mg/ml 30 ML IV PRN (09:30)
[2019-04-13] MEDS: 1/2NS w/KCl 20mEq 1000ml 1,000 ML IV SCH (09:30)
[2019-04-13] MEDS ORDERED: DiphenhydrAMINE 50mg/ml Inj IVP PRN (09:30)
--- NOTE | 2019-04-13 09:30 | NUR ---
NURSE NOTES: Left lower forearm circumference: 26cm Left upper arm circumference: 30cm Left calf circumference: 38cm Right calf circumference: 38cm
--- NOTE | 2019-04-13 09:40 | NUR ---
NURSE NOTES: Venous duplex done. Scan showed superficial vein thrombosis in basilic and cephalic veins of the left upper extremity. Called Dr. York and informed MD of venous duplex results, MD gave orders to remove left arm PICC and place order for STAT PICC placement in right arm. All orders read back and entered.
[2019-04-13] MEDS ORDERED: Heparin1,000 units/500ml Premix(Conc:2 units/ml) IV SCH (09:45)
[2019-04-13] MEDS ORDERED: Lidocaine 1% Plain 30 ml INJ SCH (09:45)
--- NOTE | 2019-04-13 10:39 | Diagnostic Imaging Report ---
Indication: Left arm swelling, PICC in place Technique: Grayscale and duplex images of the left upper extremity veins Comparison: none Findings: There is a PICC within the left basilic vein. This demonstrates thrombus above the elbow. This results in diminished Doppler flow and noncompressibility. Also demonstrated is thrombus within the cephalic vein crossing elbow. This results in diminished Doppler flow and noncompressibility. The brachial, subclavian, axillary, and jugular veins are patent, demonstrating normal flow on Doppler imaging and normal compressibility Impression: Positive for left basilic venous thrombosis, surrounding PICC Left basilic vein thrombosis also demonstrated Patient's nurse aware
--- NOTE | 2019-04-13 10:39 | NUR ---
NURSE NOTES: JARED PICC removed per MD order and [facility] policy at 1020, patient tolerated well, pressure dressing applied and no bleeding noted. TPN and IVF paused prior to line removal, patient educated on s/s of hypoglycemia due to temporary discontinuation of TPN, patient educated to inform nurse if she experiences any s/s of hypoglycemia or any other distress. Patient taken down to radiology for new PICC line placement in stable condition by neal Foote.
[2019-04-13] MEDS ORDERED: HYDROmorphone 1mg/ml Carpuject SUBQ PRN (11:15)
--- NOTE | 2019-04-13 11:30 | NUR ---
RADIOLOGY NOTE: RIGHT UPPER EXTREMITY PICC PLACED.
[2019-04-13 12:00] VITALS: BP 112/56
--- NOTE | 2019-04-13 12:02 | NUR ---
NURSE NOTES: Patient returned from radiology at 1138 in stable condition. UMBERTO PICC in place, right upper arm circumference 30.5cm, PICC locked, awaiting "ok to use PICC" order. Limb alert sign for left arm placed above bed (NO BP left arm), patient placed on continuous pulseox. Side rails upx3, bed low and locked, call light within reach.
--- NOTE | 2019-04-13 13:02 | NUR ---
NURSE NOTES: Called and spoke with Dr. Fierro, per MD harris to use UMBERTO PICC. Order entered.
--- NOTE | 2019-04-13 13:03 | Pre-Procedure Note/Attestation ---
Pre-Procedure Note/Attestation Complete Prior to Procedure Planned Procedure: right Procedure Narrative: PICC Indications for Procedure Pre-Operative Diagnosis: needs superintendent terminal central IV access Attestation I attest that I discussed the nature of the procedure; its benefits; risks and complications; and alternatives (and the risks and benefits of such alternatives ), prior to the procedure, with the patient (or the patient's legal digital media representative). I attest that, if there was a reasonable possibility of needing a blood transfusion, the patient (or the patient's legal digital media representative) was given the [facility] standardized written summary, pursuant to the Anast[employer] [place] [place] Blood Safety Act ([place] Health and Safety Code # 1645, as amended). I attest that I re-evaluated the patient just prior to the surgery and that there has been no change in the patient's H&P, except as documented below: Gumaro Fierro MD Apr 13, 2019 13:03
--- NOTE | 2019-04-13 13:04 | Brief Operative Note ---
Immediate Post Operative Note Operative Note Pre-op Diagnosis: needs terminal carman central IV access Procedure: PICC R basilic Post-op Diagnosis: same as pre-op Surgeon: Sabine Valentin Anesthesia: local Specimen: none Complications: none Fluids: none Implant(s) used?: No Gumaro Valentin MD Apr 13, 2019 13:04
--- NOTE | 2019-04-13 15:33 | Diagnostic Imaging Report ---
Indications: Needs long-term IV access Technique: Ultrasound confirms patent compressible right brachial vein. Total sterile technique, including sterile probe cover and sterile gel, hat, mask, sterile gown, large sterile drape, and preparation with 2% chlorhexidine utilized. Local anesthesia with 1% lidocaine. Under real-time ultrasound guidance, puncture brachial vein using 21-gauge needle, documented and archived, passage 0.018 guidewire under direct fluoroscopy, which was used to determine appropriate catheter length, exchange for 4 Belgian peel-away sheath. 4 Belgian Bard dual-lumen power PICC cut to 40 cm. It was inserted through the peel-away sheath. Peel-away sheath and guidewire removed. Catheter fixed to the skin. Both catheter ports aspirated and flushed. Patient tolerated procedure well, without immediate complication. Digital radiograph documents satisfactory catheter tip position, at the cavoatrial junction. Total fluoroscopy time 76.1 seconds. Total dose area product [id number] [id number] Total number of images: 1 Impression: Successful placement of right arm PICC under sonographic and fluoroscopic guidance, as described above.
[2019-04-13 16:00] VITALS: BP 147/90
--- NOTE | 2019-04-13 18:10 | Pulmonology Progress Note ---
Assessment/Plan Assessment/Plan IMPRESSION: 1. 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 2. History of pulmonary embolism. 3. History of IVC filter. None seen on imaging. 4. Chronic anticoagulation with Xarelto. 5. History of proctocolectomy. 6. Ulcerative colitis. 7. Bravo pouch with recent issues intubation. 8. History of left lung carcinoma, status post lobectomy. 9. History of recently diagnosed right lung carcinoma, scheduled for resection stage IB. DISCUSSION: S/p laparotomy She has chronic DVT L side I would recommend avoiding full anticoagulation given her complex abdominal surgery and only continue sub cut heparin. Will begin Xarelto once she is cleared from surgery Noted UE DVT; PICC removed; Continue sub cut heparin I will follow as marketing secretary. She will be scheduled for right lung surgery after her current GI issues resolve, which is appropriate. Dk Summers M.D. Subjective Interval Events: Swelling UE noted; PICC dc Constitutional: Reports: no symptoms HEENT: Repors: no symptoms Respiratory: Reports: no symptoms Cardiovascular: Reports: no symptoms Gastrointestinal/Abdominal: Reports: no symptoms Allergies: Coded Allergies: No Known Allergies (Unverified , 04/03/19) Objective Last 24 Hour Vital Signs Date Time Temp Pulse Resp B/P (MAP) Pulse Ox O2 Delivery O2 Flow Rate FiO2 04/13/19 16:58 18 04/13/19 16:00 97.6 94 18 147/90 (109) 95 04/13/19 12:00 99.2 98 18 112/56 (74) 95 04/13/19 12:00 18 04/13/19 09:00 Room Air 04/13/19 08:00 18 04/13/19 08:00 99.3 97 18 140/70 (93) 97 04/13/19 07:55 96 Room Air 2.0 28 04/13/19 04:00 98 20 97 04/13/19 04:00 98.1 98 20 139/70 (93) 97 04/13/19 00:00 99.9 98 22 138/68 (91) 96 2/18/20 00:00 98 22 96 04/12/19 21:00 Nasal Cannula 2.0 04/12/19 21:00 95 Nasal Cannula 2.0 28 04/12/19 20:00 106 18 94 04/12/19 20:00 99.9 106 18 149/76 (100) 94 Intake and Output 04/12/19 04/13/19 19:00 07:00 Intake Total 1551 ml 1266 ml Output Total 525 ml 490 ml Balance 1026 ml 776 ml IV Total 1551 ml 1266 ml Output Urine Total 500 ml 430 ml Emesis 50 ml Other 25 ml 10 ml General Appearance: no acute distress HEENT: normocephalic Respiratory/Chest: chest wall non-tender Cardiovascular: normal peripheral pulses Abdomen: soft, non tender Laboratory Tests 04/13/19 04:45: White Blood Count 11.7H, Red Blood Count 3.91L, Hemoglobin 11.9L, Hematocrit 34.6L, Mean Corpuscular Volume 89, Mean Corpuscular Hemoglobin 30.5, Mean Corpuscular Hemoglobin Concent 34.4, Red Cell Distribution Width 11.9, Platelet Count 214, Mean Platelet Volume 6.7, Neutrophils (%) (Auto) 67.9, Lymphocytes (% ) (Auto) 17.5L, Monocytes (%) (Auto) 10.3H, Eosinophils (%) (Auto) 3.5H, Basophils (%) (Auto) 0.9, Sodium Level 142, Potassium Level 3.9, Chloride Level 108H, Carbon Dioxide Level 31, Anion Gap 4L, Blood Urea Nitrogen 16, Creatinine 0.5L, Estimat Glomerular Filtration Rate > 60, Glucose Level 161H, Calcium Level 8.2L, Phosphorus Level 2.5, Magnesium Level 1.7L, Total Bilirubin 0.4, Aspartate Amino Transf (AST/SGOT) 19, Alanine Aminotransferase (ALT/SGPT) 19, Alkaline Phosphatase 87, Total Protein 5.0L, Albumin 1.9L, Globulin 3.1, Albumin /Globulin Ratio 0.6L Current Medications Medications (Trade) Dose Ordered Sig/Jayshree Route PRN Reason Start Time Stop Time Status Last Admin Dose Admin Acetaminophen (Tylenol) 650 mg Q4H PRN ORAL Mild Pain/Temp > 100.2 04/08/19 15:30 05/08/19 15:29 Al Hydroxide/Mg Hydroxide (Mylanta) 15 ml Q4H PRN ORAL Indigestion 04/10/19 09:00 05/10/19 08:59 04/10/19 14:44 Alprazolam (Xanax) 0.5 mg Q6H PRN ORAL For Anxiety 04/11/19 09:30 04/18/19 09:29 Ampicillin Sodium/ Sulbactam Sodium 3 gm/Sodium Chloride 110 ml @ 220 mls/hr EVERY 6 HOURS IV 04/08/19 00:00 04/15/19 00:00 04/13/19 17:55 Chlorhexidine Gluconate (Michelle-Hex 2%) 1 applic DAILY@2000 TOPIC 04/13/19 20:00 05/13/19 19:59 Dextrose 1,000 ml @ 0 mls/hr Q24H PRN IV PN interrupted or unavailable 04/05/19 20:00 05/05/19 19:59 04/07/19 20:23 Dextrose (Dextrose 50%) 25 ml Q30M PRN IV Hypoglycemia 04/07/19 00:00 05/07/19 00:00 Dextrose (Dextrose 50%) 50 ml Q30M PRN IV Hypoglycemia 04/07/19 00:00 05/07/19 00:00 Diphenhydramine HCl (Benadryl) 25 mg Q6H PRN IVP Itching/Pruritis 04/13/19 09:30 04/15/19 09:29 Fat Emulsion Intravenous 192 ml/Amino Acids/ Electrolytes/ Dextrose 1,872 ml @ 78 mls/hr Q24H IV 04/07/19 20:00 05/07/19 19:59 04/12/19 20:24 Heparin Sodium (Porcine) (Heparin 5000 units/ml) 5,000 units EVERY 12 HOURS SUBQ 04/04/19 10:15 05/04/19 10:14 04/13/19 08:52 Hydromorphone HCl 30 ml @ 0 mls/hr Q24H PRN IV For Pain 04/13/19 09:30 04/15/19 09:29 Hydromorphone HCl (Dilaudid) 1 mg Q4H PRN SUBQ Severe Breakthru Pain (>7) 04/13/19 11:15 04/20/19 11:14 Insulin Aspart (NovoLOG) Q6HR SUBQ 04/07/19 00:00 05/07/19 00:00 04/13/19 17:59 Lorazepam (Ativan) 1 mg HSPRN PRN SL Sleep 04/08/19 15:30 04/15/19 15:29 Lorazepam (Ativan) 1 mg Q4H PRN SL Muscle Spasm 04/08/19 15:30 04/15/19 15:29 Metoclopramide HCl (Reglan) 10 mg Q6H IVP 04/12/19 09:45 05/12/19 09:44 04/13/19 16:59 Miscellaneous Medication (REEL HOOKER Rate Change) 1 ea DAILY PRN MISC rate change 04/13/19 08:15 04/15/19 08:14 Miscellaneous Medication (REEL HOOKER shift volume) 1 ea Q12HR@0700,1900 MISC 04/13/19 19:00 04/15/19 18:59 Naloxone HCl (Narcan) 0.1 mg Q1M PRN IVP RR<10/min OR SBP<90 mmHg 04/13/19 08:11 04/15/19 08:08 Ondansetron HCl (Zofran) 4 mg Q4H PRN IVP Nausea & Vomiting 04/08/19 15:30 05/08/19 15:29 04/12/19 20:22 Pantoprazole (Protonix) 40 mg DAILY IVP 04/11/19 09:00 05/11/19 08:59 04/13/19 08:51 Phytonadione (Vitamin K) 10 mg ONCE A WEEK SUBQ 04/13/19 09:00 05/13/19 08:59 04/13/19 08:51 Sodium 1,000 ml @ 30 mls/hr Q24H IV 04/11/19 09:30 05/09/19 09:29 04/13/19 09:30 Dk Summers MD Apr 13, 2019 18:10
--- NOTE | 2019-04-13 18:33 | NUR ---
NURSE NOTES: Total ileo output for shift: 17mL Total urine output: 2375mL Patient's nausea is well controlled, no episodes of emesis during my shift, ambulated in hallway x1.
[2019-04-13] MEDS ORDERED: NS 275ml ONE (18:35)
[2019-04-13 20:00] VITALS: BP 127/69
--- NOTE | 2019-04-13 20:00 | NUR ---
NURSE NOTES: Received report from EUSEBIO Mayes. Pt is awake, lying semi-raygoza's; comfortably resting. No signs of acute distress noted. Pt denies any pain at this time. AOx4; able to make needs known. Checked IV site, lines, and rate; patent and running. Erythema and swelling noted on the left upper arm. No bleeding noted. Bed at lowest position. Brakes on. Siderails up x2. Call light within reach. Will continue to monitor.
--- NOTE | 2019-04-13 20:02 | NUR ---
HAND-OFF: Report given to Felicita KAPLAN.
[2019-04-13] MEDS: Dyna-Hex 2% Top Sol 2oz TOPIC SCH (21:04)
[2019-04-13] MEDS: TPN IV SCH (21:05)
[2019-04-13] MEDS: FAT EMULSION 20% IV SCH (21:05)
[2019-04-14] VITALS: BP 130/63
[2019-04-14] MEDS: Ampicillin/Sulbactam Sod 3 GM in NS 110 ML IV SCH ×2 (00:02→04:31)
[2019-04-14] MEDS: NovoLOG Insulin Flexpen SUBQ SCH ×4 (00:13→18:16)
[2019-04-14 04:00] VITALS: BP 140/74
[2019-04-14] MEDS: Metoclopramide 10mg/2ml Inj IVP SCH ×4 (04:31→21:45)
[2019-04-14] MEDS: PCA shift volume MISC SCH ×2 (07:00→19:00)
[2019-04-14 07:14] LABS: BASOPHILS % (AUTO) 1.1 % (0.0-2.0); EOSINOPHILS % (AUTO) 3.8 % (0.0-3.0); HEMATOCRIT 35.1 % (37.0-47.0); LYMPHOCYTES % (AUTO) 17.8 % (20.0-45.0); MEAN CORPUSCULAR VOLUME 89 FL (80-99); MONOCYTES % (AUTO) 10.2 % (1.0-10.0); NEUTROPHILS % (AUTO) 67.1 % (45.0-75.0); PLATELET COUNT 211 K/UL (150-450); RED BLOOD COUNT 3.94 M/UL (4.20-5.40); RED CELL DISTRIBUTION WIDTH 12.4 % (11.6-14.8); WHITE BLOOD COUNT 10.6 K/UL (4.8-10.8)
[2019-04-14 07:20] LABS: ALANINE AMINOTRANSFERASE 25 U/L (12-78); ALBUMIN/GLOBULIN RATIO 0.6 (1.0-2.7); ALKALINE PHOSPHATASE 101 U/L (46-116); ANION GAP 6 mmol/L (5-15); ASPARTATE AMINO TRANSFERASE 26 U/L (15-37); BILIRUBIN,TOTAL 0.5 MG/DL (0.2-1.0); BLOOD UREA NITROGEN 13 mg/dL (7-18); CALCIUM 8.3 MG/DL (8.5-10.1); CARBON DIOXIDE 31 MMOL/L (21-32); CHLORIDE 105 MMOL/L (98-107); CREATININE 0.6 MG/DL (0.55-1.30); POTASSIUM 3.5 MMOL/L (3.5-5.1); SODIUM 142 MMOL/L (136-145)
--- NOTE | 2019-04-14 07:44 | Pulmonology Progress Note ---
Assessment/Plan Assessment/Plan IMPRESSION: 1. 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 2. History of pulmonary embolism. 3. History of IVC filter. None seen on imaging. 4. Chronic anticoagulation with Xarelto. 5. History of proctocolectomy. 6. Ulcerative colitis. 7. Bravo pouch with recent issues intubation. 8. History of left lung carcinoma, status post lobectomy. 9. History of recently diagnosed right lung carcinoma, scheduled for resection stage IB. DISCUSSION: S/p laparotomy She has chronic DVT L side I would recommend avoiding full anticoagulation given her complex abdominal surgery and only continue sub cut heparin. Will begin Xarelto once she is cleared from surgery Noted UE DVT; PICC removed; Continue sub cut heparin I will follow as nursing aide. She will be scheduled for right lung surgery after her current GI issues resolve, which is appropriate. Dk Summers M.D. Subjective Interval Events: None new Constitutional: Reports: no symptoms HEENT: Repors: no symptoms Respiratory: Reports: no symptoms Cardiovascular: Reports: no symptoms Gastrointestinal/Abdominal: Reports: no symptoms Allergies: Coded Allergies: No Known Allergies (Unverified , 04/03/19) Objective Last 24 Hour Vital Signs Date Time Temp Pulse Resp B/P (MAP) Pulse Ox O2 Delivery O2 Flow Rate FiO2 04/14/19 04:00 100 21 95 04/14/19 04:00 97.9 100 21 140/74 (96) 95 04/14/19 00:00 96.0 93 20 130/63 (85) 96 04/14/19 00:00 93 20 96 04/13/19 21:00 Nasal Cannula 2.0 04/13/19 20:00 89 20 96 04/13/19 20:00 99.3 89 20 127/69 (88) 96 04/13/19 19:26 95 Room Air 21 04/13/19 16:58 18 04/13/19 16:00 97.6 94 18 147/90 (109) 95 04/13/19 12:00 99.2 98 18 112/56 (74) 95 04/13/19 12:00 18 04/13/19 09:00 Room Air 04/13/19 08:00 18 04/13/19 08:00 99.3 97 18 140/70 (93) 97 04/13/19 07:55 96 Room Air 2.0 28 Intake and Output 04/13/19 04/14/19 19:00 07:00 Intake Total 1484 ml Output Total 2392 ml 700 ml Balance -908 ml -700 ml IV Total 1484 ml Output Urine Total 2375 ml 650 ml Other 17 ml 50 ml General Appearance: no acute distress HEENT: normocephalic Respiratory/Chest: chest wall non-tender, lungs clear Cardiovascular: normal peripheral pulses Abdomen: soft, non tender Laboratory Tests 04/14/19 05:10: White Blood Count 10.6, Red Blood Count 3.94L, Hemoglobin 12.0, Hematocrit 35.1L , Mean Corpuscular Volume 89, Mean Corpuscular Hemoglobin 30.5, Mean Corpuscular Hemoglobin Concent 34.3, Red Cell Distribution Width 12.4, Platelet Count 211, Mean Platelet Volume 7.0, Neutrophils (%) (Auto) 67.1, Lymphocytes (% ) (Auto) 17.8L, Monocytes (%) (Auto) 10.2H, Eosinophils (%) (Auto) 3.8H, Basophils (%) (Auto) 1.1, Sodium Level 142, Potassium Level 3.5, Chloride Level 105, Carbon Dioxide Level 31, Anion Gap 6, Blood Urea Nitrogen 13, Creatinine 0.6, Estimat Glomerular Filtration Rate > 60, Glucose Level 150H, Calcium Level 8.3L, Magnesium Level 2.2, Total Bilirubin 0.5, Aspartate Amino Transf (AST/SGOT ) 26, Alanine Aminotransferase (ALT/SGPT) 25, Alkaline Phosphatase 101, Total Protein 5.1L, Albumin 2.0L, Globulin 3.1, Albumin/Globulin Ratio 0.6L Current Medications Medications (Trade) Dose Ordered Sig/Jayshree Route PRN Reason Start Time Stop Time Status Last Admin Dose Admin Acetaminophen (Tylenol) 650 mg Q4H PRN ORAL Mild Pain/Temp > 100.2 04/08/19 15:30 05/08/19 15:29 Al Hydroxide/Mg Hydroxide (Mylanta) 15 ml Q4H PRN ORAL Indigestion 04/10/19 09:00 05/10/19 08:59 04/10/19 14:44 Alprazolam (Xanax) 0.5 mg Q6H PRN ORAL For Anxiety 04/11/19 09:30 04/18/19 09:29 Ampicillin Sodium/ Sulbactam Sodium 3 gm/Sodium Chloride 110 ml @ 220 mls/hr EVERY 6 HOURS IV 04/08/19 00:00 04/15/19 00:00 04/14/19 04:31 Chlorhexidine Gluconate (Michelle-Hex 2%) 1 applic DAILY@2000 TOPIC 04/13/19 20:00 05/13/19 19:59 04/13/19 21:04 Dextrose 1,000 ml @ 0 mls/hr Q24H PRN IV PN interrupted or unavailable 04/05/19 20:00 05/05/19 19:59 04/07/19 20:23 Dextrose (Dextrose 50%) 25 ml Q30M PRN IV Hypoglycemia 04/07/19 00:00 05/07/19 00:00 Dextrose (Dextrose 50%) 50 ml Q30M PRN IV Hypoglycemia 04/07/19 00:00 05/07/19 00:00 Diphenhydramine HCl (Benadryl) 25 mg Q6H PRN IVP Itching/Pruritis 04/13/19 09:30 04/15/19 09:29 Fat Emulsion Intravenous 192 ml/Amino Acids/ Electrolytes/ Dextrose 1,872 ml @ 78 mls/hr Q24H IV 04/07/19 20:00 05/07/19 19:59 04/13/19 21:05 Heparin Sodium (Porcine) (Heparin 5000 units/ml) 5,000 units EVERY 12 HOURS SUBQ 04/04/19 10:15 05/04/19 10:14 04/13/19 21:06 Hydromorphone HCl 30 ml @ 0 mls/hr Q24H PRN IV For Pain 04/13/19 09:30 04/15/19 09:29 Hydromorphone HCl (Dilaudid) 1 mg Q4H PRN SUBQ Severe Breakthru Pain (>7) 04/13/19 11:15 04/20/19 11:14 Insulin Aspart (NovoLOG) Q6HR SUBQ 04/07/19 00:00 05/07/19 00:00 04/14/19 06:09 Lorazepam (Ativan) 1 mg HSPRN PRN SL Sleep 04/08/19 15:30 04/15/19 15:29 Lorazepam (Ativan) 1 mg Q4H PRN SL Muscle Spasm 04/08/19 15:30 04/15/19 15:29 Metoclopramide HCl (Reglan) 10 mg Q6H IVP 04/12/19 09:45 05/12/19 09:44 04/14/19 04:31 Miscellaneous Medication (COMMISSIONED POLICE OFFICER Rate Change) 1 ea DAILY PRN MISC rate change 04/13/19 08:15 04/15/19 08:14 Miscellaneous Medication (COMMISSIONED POLICE OFFICER shift volume) 1 ea Q12HR@0700,1900 MISC 04/13/19 19:00 04/15/19 18:59 04/14/19 07:00 Naloxone HCl (Narcan) 0.1 mg Q1M PRN IVP RR<10/min OR SBP<90 mmHg 04/13/19 08:11 04/15/19 08:08 Ondansetron HCl (Zofran) 4 mg Q4H PRN IVP Nausea & Vomiting 04/08/19 15:30 05/08/19 15:29 04/12/19 20:22 Pantoprazole (Protonix) 40 mg DAILY IVP 04/11/19 09:00 05/11/19 08:59 04/13/19 08:51 Phytonadione (Vitamin K) 10 mg ONCE A WEEK SUBQ 04/13/19 09:00 05/13/19 08:59 04/13/19 08:51 Sodium 1,000 ml @ 30 mls/hr Q24H IV 04/11/19 09:30 05/09/19 09:29 04/13/19 09:30 Dk Summers MD Apr 14, 2019 07:44
--- NOTE | 2019-04-14 07:47 | NUR ---
HAND-OFF: Report given to EUSEBIO Mayes. Pt is awake and in stable condition. Plan of care endorsed.
[2019-04-14 08:00] VITALS: BP 125/60
--- NOTE | 2019-04-14 08:00 | NUR ---
NURSE NOTES: Received report from Felicita KAPLAN. Patient is awake and oriented, no acute distress noted, reporting no pain at this time, reporting she is slightly nauseous but no episodes of emesis noted. UMBERTO PICC intact, patent, running IVF and TPN per order. External ileostomy appliance in place with no leaking noted, stool is green. Horne to gravity drainage. Updated on plan of care for the day. Side rails upx2, bed low and locked, call light within reach.
[2019-04-14] MEDS ORDERED: Naloxone 0.4mg/ml Inj IVP PRN (08:54)
--- NOTE | 2019-04-14 08:55 | General Progress Note ---
Progress Note Progress Note AVSS left arm stable - deep venous system patent abdomen still distended but now green effluent in ileostomy appliance Urine 3020 after lasix x 1 Ileostomy 50cc WBC down 10,600 Hgb 12 BUN 13 K 3.5 Mg 2.2 albumin 2 New PIC in right arm now Imp: Ileus Plan: continue npo until distention decreasing remove urinary genao continue TPN Blair York MD Apr 14, 2019 08:55
[2019-04-14] MEDS ORDERED: LORazepam 1mg tab SL PRN ×2 (09:00→11:30)
[2019-04-14] MEDS ORDERED: Rate Change PCA 1 Each MISC PRN (09:00)
--- NOTE | 2019-04-14 09:00 | NUR ---
NURSE NOTES: Right upper arm circumference: 31cm Bilateral leg circumference: 38.5cm
[2019-04-14] MEDS ORDERED: PCA HYDROmorphone 1mg/ml 30 ML IV PRN (09:30)
[2019-04-14] MEDS ORDERED: DiphenhydrAMINE 50mg/ml Inj IVP PRN (09:30)
[2019-04-14] MEDS: Pantoprazole Inj IVP SCH (10:03)
[2019-04-14] MEDS: 1/2NS w/KCl 20mEq 1000ml 1,000 ML IV SCH (10:03)
[2019-04-14] MEDS: Heparin 5000 units/ml inj SUBQ SCH ×2 (10:04→20:12)
--- NOTE | 2019-04-14 10:20 | NUR ---
NURSE NOTES: Horne catheter removed per MD order, patient tolerated well. BSC placed at bedside.
[2019-04-14 12:00] VITALS: BP 137/83
--- NOTE | 2019-04-14 12:23 | NUR ---
NURSE NOTES: External ileostomy appliance changed by Rashid RUSS.
--- NOTE | 2019-04-14 13:24 | NUR ---
NURSE NOTES:OSTOMY CARE:Continued education on care of Ostomy provided. Pt requested more time to adjust to having Ileostomy before attempting to change pouch.Ileostomy functioning well. Dark green effluent noted in pouch Budded stoma which moderately protrudes. Stoma is beefy red and shiny.Stoma measures at 1 1/4 inch. Peristomal area is clean and intact. Pt education on care of ostomy instructions provided. Instructions given on peristomal care ,applying Skin Barrier wipes then applying Zenia's Barrier ring. Demonstrated to pt on application of thin layer of Stomahesive Paste to Wafer then securing wafer in place. Instructed to pt to place hand over wafer for at least 5-10 mins after securing pouch in place. Pt agreed to be more active with next Ileostomy care. Pt also stated wanting Spouse to be present next Ileostomy care.
--- NOTE | 2019-04-14 13:52 | NUR ---
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 MALFUNCTION MARTINEZ POUCH * SMALL PLEURAL EFFUSION 98.6 84 20 125/60 96% ON 2L NC BG 150 CA+ 8.3 IS:IV NS @30ML/HR IV TPN @24HR HEPARIN SQ BID IV PROTONIX DQ ADAM-HEX TP QD NOVOLOG SQ Q6HR IV D5@KVO Q24/PRN \: 3E MED SURG UNIT PLAN: CONT NPO UNTIL ABD DISTENTION DECREASE REMOVE FOSTER CATH CONT TPN PICC LINE INSERTED -COMPLETE RIGHT ARM DVT (+) LEFT ARM -PICC LINE REMOVED CONTROL FEVERS
--- NOTE | 2019-04-14 15:00 | NUR ---
NURSE NOTES: Patient voided 300mL of yellow urine without difficulty.
[2019-04-14 16:00] VITALS: BP 146/80
[2019-04-14] MEDS: Nystatin Susp 500,000 units/5ml ORAL SCH ×2 (16:29→20:12)
[2019-04-14] MEDS ORDERED: Fluconazole 150mg tab ORAL SCH (17:00)
--- NOTE | 2019-04-14 18:30 | NUR ---
NURSE NOTES: Total ileo output for shift: 105mL Total urine output: 550mL Patient's nausea well managed, ambulated in hallway x1.
--- NOTE | 2019-04-14 19:30 | NUR ---
HAND-OFF: Report given to Felicita KAPLAN.
--- NOTE | 2019-04-14 19:35 | NUR ---
NURSE NOTES: Received report from EUSEBIO Mayes. Pt is awake, lying high-raygoza's; comfortably resting. No signs of acute distress noted. Pt denies any pain at this time. AOx4; able to make needs known. Checked IV site, line, and rate; patent and running. No erythema, bleeding, or infiltration noted. Bed at lowest position. Brakes on. Siderails up x3. Call light within reach. Will continue to monitor.
[2019-04-14 20:00] VITALS: BP 138/83
[2019-04-14] MEDS: Dyna-Hex 2% Top Sol 2oz TOPIC SCH (20:09)
[2019-04-14] MEDS: TPN IV SCH (20:12)
[2019-04-14] MEDS: FAT EMULSION 20% IV SCH (20:12)
[2019-04-15] VITALS: BP 152/81
[2019-04-15] MEDS: NovoLOG Insulin Flexpen SUBQ SCH ×4 (00:11→17:19)
[2019-04-15] MEDS: Metoclopramide 10mg/2ml Inj IVP SCH ×4 (03:16→22:36)
[2019-04-15 04:00] VITALS: BP 135/81
--- NOTE | 2019-04-15 07:10 | NUR ---
HAND-OFF: Report given to EUSEBIO Bravo. Pt is awake and in stable condition. Plan of care endorsed.
[2019-04-15] MEDS: PCA shift volume MISC SCH (07:12)
--- NOTE | 2019-04-15 07:43 | NUR ---
NURSE NOTES: AWAKE/ALERT. PAIN SCALE 2/10. ILEOSTOMY BAG IN PLACE DRAINING GREENISH OUTPUT. IN NO ACUTE DISTRESS.
[2019-04-15 08:00] VITALS: BP 142/79
--- NOTE | 2019-04-15 09:00 | NUR ---
NURSE NOTES: AMBULATED OUT INTHE MOSS WITH P.T. TOLERATED.
[2019-04-15] MEDS: Nystatin Susp 500,000 units/5ml ORAL SCH ×4 (09:04→20:34)
[2019-04-15] MEDS: Pantoprazole Inj IVP SCH (09:05)
[2019-04-15] MEDS: Heparin 5000 units/ml inj SUBQ SCH ×2 (09:14→20:36)
[2019-04-15] MEDS: 1/2NS w/KCl 20mEq 1000ml 1,000 ML IV SCH (10:10)
[2019-04-15] MEDS ORDERED: HYDROcodone/Acetamin 5/325 tab ORAL PRN (11:45)
[2019-04-15 12:00] VITALS: BP 134/85
--- NOTE | 2019-04-15 12:05 | General Progress Note ---
Progress Note Progress Note AVSS Feeling better with decreased abdominal distention and ileostomy 455cc output IMp; ileus resolving Plan: clear liquid diet continue TPN d/c ENGINEERING COORDINATOR + IV fluids Blair York MD Apr 15, 2019 12:05
--- NOTE | 2019-04-15 13:21 | NUR ---
NURSE NOTES: rt leg circumference 38cm. left leg 40cm.
--- NOTE | 2019-04-15 14:29 | NUR ---
RD ASSESSMENT & RECOMMENDATIONS SEE CARE ACTIVITY FOR COMPLETE ASSESSMENT DAILY ESTIMATED NEEDS: Needs based on Surgery 60.5kg adj 25-35 kcals/kg 1854-5494 total kcals 1-2 g protein/kg 61-121 g total protein 25-30 mL/kg 3305-4893 total fluid mLs NUTRITION DIAGNOSIS: Altered GI fxn related BCIR slipped valve as evidenced by s/p endoscopy, findings of dessusception of nipple valve, now s/p BCIR takedown w/ creation of [place] ileo, on TPN , diet now advanced to clear liquid diet. CURRENT DIET:CLEAR LIQUID DIET PO DIET RECOMMENDATIONS: Advance diet per MD -> SOFT PARENTERAL NUTRITION RECOMMENDATIONS: D/AA Rate: 70 IL Rate: 8 Total Rate: 78 Volume: 1872 % Dextrose: 19 % AA: 5.4 Energy (kcals/kg): 1832 Protein (g/kg protein): 91 Nonprotein KCALS: 1469 GIR (mg CHO/kg/min): 3.1 % Fat KCALS: 21 NCP: N Ratio: 101:1 TPN Comment: - D19% + AA 5.4% @70ml/hr with IL 20% @8ml/hr-> all 3:1. - Goal rate of 78ml/hr x24 hrs - TPN at goal meets 100% est needs, provides 30 kcal per adj kg and 1.5g/adj kg pro. - GIR <5 - IL <30% ADDITIONAL RECOMMENDATIONS: 1) Obtain a standing weight as able 2) Monitor BG, lytes, LFT's w/ TPN, need for formulary adjustments 3) Monitor PO tolerance and acceptance, need to taper down TPN .
[2019-04-15 16:00] VITALS: BP 152/79
--- NOTE | 2019-04-15 16:34 | NUR ---
NURSE NOTES: temp. 100.6 tylenol 650mg given po. encouraged to do deep breating and use of incentive spirometer. will continue to monitor pt.
--- NOTE | 2019-04-15 17:04 | NUR ---
NURSE NOTES: TEMP RECHECKED. 99.4
--- NOTE | 2019-04-15 18:32 | Pulmonology Progress Note ---
Assessment/Plan Assessment/Plan IMPRESSION: 1. 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 2. History of pulmonary embolism. 3. History of IVC filter. None seen on imaging. 4. Chronic anticoagulation with Xarelto. 5. History of proctocolectomy. 6. Ulcerative colitis. 7. Bravo pouch with recent issues intubation. 8. History of left lung carcinoma, status post lobectomy. 9. History of recently diagnosed right lung carcinoma, scheduled for resection stage IB. DISCUSSION: S/p laparotomy She has chronic DVT L side I would recommend avoiding full anticoagulation given her complex abdominal surgery and only continue sub cut heparin. Will begin Xarelto once she is cleared from surgery Noted UE DVT; PICC removed; Continue sub cut heparin I will follow as senior marketing associate. She will be scheduled for right lung surgery after her current GI issues resolve, which is appropriate. Dk Summers M.D. Subjective Interval Events: none new reported Constitutional: Reports: no symptoms HEENT: Repors: no symptoms Respiratory: Reports: no symptoms Cardiovascular: Reports: no symptoms Gastrointestinal/Abdominal: Reports: no symptoms Allergies: Coded Allergies: No Known Allergies (Unverified , 04/03/19) Objective Last 24 Hour Vital Signs Date Time Temp Pulse Resp B/P (MAP) Pulse Ox O2 Delivery O2 Flow Rate FiO2 04/15/19 17:04 99.4 04/15/19 17:04 99.4 04/15/19 16:00 100.6 104 19 152/79 (103) 95 04/15/19 12:45 100 18 96 04/15/19 12:00 98.1 100 18 134/85 (101) 96 04/15/19 12:00 100 18 96 04/15/19 09:00 Room Air 04/15/19 08:51 98 Room Air 21 04/15/19 08:00 92 19 95 04/15/19 08:00 99.4 92 19 142/79 (100) 95 04/15/19 04:00 92 19 95 04/15/19 04:00 99.3 92 19 135/81 (99) 95 2/20/20 00:00 99.9 93 20 152/81 (104) 96 04/15/19 00:00 94 21 94 04/14/19 21:11 95 Room Air 21 04/14/19 21:00 Room Air 04/14/19 20:00 94 21 94 04/14/19 20:00 99.4 94 21 138/83 (101) 95 Intake and Output 04/14/19 04/15/19 19:00 07:00 Intake Total 1296 ml 108 ml Output Total 655 ml 1350 ml Balance 641 ml -1242 ml IV Total 1296 ml 108 ml Output Urine Total 550 ml 1000 ml Other 105 ml 350 ml # Voids 5 General Appearance: no acute distress HEENT: normocephalic Respiratory/Chest: chest wall non-tender Cardiovascular: normal rate Abdomen: soft, non tender Current Medications Medications (Trade) Dose Ordered Sig/Jayshree Route PRN Reason Start Time Stop Time Status Last Admin Dose Admin Acetaminophen (Tylenol) 650 mg Q4H PRN ORAL Mild Pain/Temp > 100.2 04/08/19 15:30 05/08/19 15:29 04/15/19 16:34 Acetaminophen/ Hydrocodone Bitart ([place] 5/325) 1 tab Q4H PRN ORAL Moderate Pain (Pain Scale 4-6) 04/15/19 11:45 04/22/19 11:44 Al Hydroxide/Mg Hydroxide (Mylanta) 15 ml Q4H PRN ORAL Indigestion 04/10/19 09:00 05/10/19 08:59 04/10/19 14:44 Alprazolam (Xanax) 0.5 mg Q6H PRN ORAL For Anxiety 04/11/19 09:30 04/18/19 09:29 Chlorhexidine Gluconate (Michelle-Hex 2%) 1 applic DAILY@2000 TOPIC 04/13/19 20:00 05/13/19 19:59 04/14/19 20:09 Dextrose 1,000 ml @ 0 mls/hr Q24H PRN IV PN interrupted or unavailable 04/05/19 20:00 05/05/19 19:59 04/07/19 20:23 Dextrose (Dextrose 50%) 25 ml Q30M PRN IV Hypoglycemia 04/07/19 00:00 05/07/19 00:00 Dextrose (Dextrose 50%) 50 ml Q30M PRN IV Hypoglycemia 04/07/19 00:00 05/07/19 00:00 Fat Emulsion Intravenous 192 ml/Amino Acids/ Electrolytes/ Dextrose 1,872 ml @ 78 mls/hr Q24H IV 04/07/19 20:00 05/07/19 19:59 04/14/19 20:12 Heparin Sodium (Porcine) (Heparin 5000 units/ml) 5,000 units EVERY 12 HOURS SUBQ 04/04/19 10:15 05/04/19 10:14 04/15/19 09:14 Hydromorphone HCl (Dilaudid) 1 mg Q4H PRN SUBQ Severe Breakthru Pain (>7) 04/13/19 11:15 04/20/19 11:14 Insulin Aspart (NovoLOG) Q6HR SUBQ 04/07/19 00:00 05/07/19 00:00 04/15/19 17:19 Lorazepam (Ativan) 1 mg HSPRN PRN SL Sleep 04/14/19 09:00 04/21/19 08:59 Lorazepam (Ativan) 1 mg Q4H PRN SL Muscle Spasm 04/14/19 11:30 04/21/19 11:29 Metoclopramide HCl (Reglan) 10 mg Q6H IVP 04/12/19 09:45 05/12/19 09:44 04/15/19 15:33 Nystatin (Nystatin) 5 ml QID ORAL 04/14/19 16:16 04/21/19 16:15 04/15/19 17:28 Ondansetron HCl (Zofran) 4 mg Q4H PRN IVP Nausea & Vomiting 04/08/19 15:30 05/08/19 15:29 04/12/19 20:22 Pantoprazole (Protonix) 40 mg DAILY IVP 04/11/19 09:00 05/11/19 08:59 04/15/19 09:05 Phytonadione (Vitamin K) 10 mg ONCE A WEEK SUBQ 04/13/19 09:00 05/13/19 08:59 04/13/19 08:51 Dk Summers MD Apr 15, 2019 18:32
--- NOTE | 2019-04-15 18:59 | NUR ---
NURSE NOTES: CONDITION STABLE . IN NO APPARENT DISTRESS.
--- NOTE | 2019-04-15 19:33 | NUR ---
HAND-OFF: Report given to Loretta ALEXANDRE RN.
[2019-04-15 20:00] VITALS: BP 145/76
[2019-04-15] MEDS: FAT EMULSION 20% IV SCH (20:32)
[2019-04-15] MEDS: TPN IV SCH (20:32)
[2019-04-15] MEDS: Dyna-Hex 2% Top Sol 2oz TOPIC SCH (20:36)
--- NOTE | 2019-04-15 22:03 | NUR ---
NURSES NOTE: Met pt in bed, A/OX4, denies pain at this moment. No outward s/s of distress noted. Breathing is even and unlabored on RA. No bp taken on left arm, only right. Colostomy bag in place, last changed 04/14. PICC line UMBERTO, intact and patent. Dnya hex bath given. All due meds will be given. Bed at lowest level, call light within reach. Pt will continue to be monitored.
[2019-04-16] MEDS: NovoLOG Insulin Flexpen SUBQ SCH ×4 (00:26→18:06)
[2019-04-16 04:00] VITALS: BP 139/71
[2019-04-16] MEDS: Metoclopramide 10mg/2ml Inj IVP SCH ×4 (04:45→21:11)
--- NOTE | 2019-04-16 07:13 | NUR ---
HAND OFF: Report given to EUSEBIO Bravo. Patient in stable condition.
[2019-04-16 07:17] LABS: BASOPHILS % (AUTO) 0.9 % (0.0-2.0); EOSINOPHILS % (AUTO) 4.1 % (0.0-3.0); HEMATOCRIT 36.7 % (37.0-47.0); HEMOGLOBIN 12.5 G/DL (12.0-16.0); LYMPHOCYTES % (AUTO) 16.7 % (20.0-45.0); MEAN CORPUSCULAR VOLUME 89 FL (80-99); MONOCYTES % (AUTO) 7.8 % (1.0-10.0); NEUTROPHILS % (AUTO) 70.5 % (45.0-75.0); PLATELET COUNT 206 K/UL (150-450); RED BLOOD COUNT 4.12 M/UL (4.20-5.40); RED CELL DISTRIBUTION WIDTH 12.6 % (11.6-14.8); WHITE BLOOD COUNT 11.4 K/UL (4.8-10.8)
[2019-04-16 08:00] VITALS: BP 160/92
[2019-04-16 08:08] LABS: ALANINE AMINOTRANSFERASE 30 U/L (12-78); ALBUMIN 2.1 G/DL (3.4-5.0); ALBUMIN/GLOBULIN RATIO 0.6 (1.0-2.7); ALKALINE PHOSPHATASE 140 U/L (46-116); ANION GAP 13 mmol/L (5-15); ASPARTATE AMINO TRANSFERASE 22 U/L (15-37); BILIRUBIN,TOTAL 0.4 MG/DL (0.2-1.0); BLOOD UREA NITROGEN 15 mg/dL (7-18); CALCIUM 8.9 MG/DL (8.5-10.1); CARBON DIOXIDE 23 MMOL/L (21-32); CHLORIDE 107 MMOL/L (98-107); CREATININE 0.6 MG/DL (0.55-1.30); PHOSPHORUS 3.2 MG/DL (2.5-4.9); POTASSIUM 4.1 MMOL/L (3.5-5.1); SODIUM 142 MMOL/L (136-145)
[2019-04-16] MEDS: Nystatin Susp 500,000 units/5ml ORAL SCH ×4 (08:55→20:36)
[2019-04-16] MEDS: Pantoprazole Inj IVP SCH (08:55)
--- NOTE | 2019-04-16 09:00 | NUR ---
NURSE NOTES: AMBULATED OUT IN THE MOSS TOLERATED.
[2019-04-16] MEDS: Heparin 5000 units/ml inj SUBQ SCH ×2 (09:04→20:36)
--- NOTE | 2019-04-16 10:01 | NUR ---
NURSE NOTES: rt leg circumference 38cm.left leg 40cm.
[2019-04-16] MEDS ORDERED: Omnipaque-300 100ml vial INJ PRN (10:30)
--- NOTE | 2019-04-16 10:37 | General Progress Note ---
Progress Note Progress Note T 100.6 tolerating clear liquid diet 50% Abdomen still mildly distended, erythema upper pole incision - yola removed Urine 2400 Ileostomy 450 WBC up 11,400 Albumin 2.1 c/o vaginal yeast + thrush Imp: Fever r/o intra-abdominal abscess Yeast overgrowth Plan: STAT CT scan abd+pelvis with po+IV contrast U/A and urine C&S diflucan po daily, + topical nystatin Blair York MD Apr 16, 2019 10:37
[2019-04-16 11:15] LABS: APPEARANCE,URINE CLEAR; BILIRUBIN, URINE NEGATIVE (NEGATIVE); COLOR,URINE PALE YELLOW; GLUCOSE, URINE (UA) NEGATIVE (NEGATIVE); KETONES,URINE NEGATIVE (NEGATIVE); LEUKOCYTE ESTERASE ,URINE NEGATIVE (NEGATIVE); NITRITE,URINE NEGATIVE (NEGATIVE); PH,URINE 7 (4.5-8.0); PROTEIN,URINE NEGATIVE (NEGATIVE); UROBILINOGEN,URINE NORMAL MG/DL (0.0-1.0)
[2019-04-16] MEDS: Fluconazole 100mg tab ORAL SCH (11:15)
[2019-04-16] MEDS: Miconazole 2% Cr 15gm TOPIC SCH ×2 (11:16→18:03)
[2019-04-16] MEDS: Miconazole Vag Cr 45gm Tube (100mg per applicator) VAGIN SCH ×2 (11:16→20:36)
[2019-04-16 12:00] VITALS: BP 163/83
--- NOTE | 2019-04-16 14:34 | Diagnostic Imaging Report ---
Clinical Indication: Fever and bloating after ileostomy revision Technique: No oral contrast utilized, per emergency room physician request IV administration nonionic contrast. Venous phase spiral acquisition obtained through the abdomen and pelvis. Multiplanar reconstructions were generated. Total dose length product 459 mGycm. CTDIvol(s) 9 mGy. Dose reduction achieved using automated exposure control Comparison: 04/06/2019 Findings: There is a conventional ileostomy just to the right of the umbilicus. Previously demonstrated continent ileostomy is no longer evident. Skin yola are seen overlying a lower midline incision. Gas is seen within the subcutaneous fat of the right lower quadrant, presumably related to prior surgical exposure. Again demonstrated is evidence of prior jejunal resection and anastomosis in the left upper quadrant. Proximal small bowel loops are somewhat dilated, and ingested contrast has only proceeded about 50% of the way through the small bowel. No definite transition point is noted, however. There is a fluid collection with an enhancing rim in the pelvis. This measures 5.1 cm transverse by 4.8 cm AP by 5.5 cm craniocaudad. Again demonstrated are surgical clips anterior to the sacrococcygeal junction. A pocket of fluid without rim enhancement is seen in the right lower quadrant, measures approximately 5.5 by 1.5 x 5.6 cm. This appears to be a pocket of free intraperitoneal fluid. There are bilateral pleural effusions, right greater than left. These are larger than on the previous study. There is associated basilar parenchymal atelectasis. The distal esophagus and stomach are unremarkable. No free intraperitoneal gas is evident. The liver again demonstrates a subcentimeter low-attenuation lesion in segment 8. The gallbladder, bile ducts, pancreas, spleen, adrenals are unremarkable. The kidneys demonstrate cysts and subcentimeter low-attenuation lesions bilaterally. No retroperitoneal or mesenteric mass or adenopathy. No pelvic mass or adenopathy. Absent uterus. Extensive left iliac venous stents are again demonstrated. This abdominal wall collateral vessels are noted. The bones demonstrate degenerative spondylosis changes. Impression: Postsurgical changes, as described Mildly dilated proximal small bowel loops, slow forward transit of contrast. Most likely on the basis of postoperative ileus. Distal small bowel obstruction possible although deemed less likely. 5.1 x 4.8 x 5.5 cm rim-enhancing pelvic fluid collection. Most likely routine postoperative fluid, but abscess is also possible Right lower quadrant fluid pocket with rim enhancement. Most likely represents free intraperitoneal fluid Bilateral right greater than left pleural effusions, increased in size from previous exam. Associated compressive atelectatic changes Again demonstrated are left iliac venous stents. Central low attenuation may be due to beam hardening artifact but thrombosis also possible, particularly in view of prominent pelvic wall collaterals. This is noted previously Incidental findings as noted, including degenerative spondylosis changes, evidence of prior hysterectomy Findings discussed by phone with Dr. York at the time of interpretation The CT scanner at [facility] is accredited by the [employer] and the scans are performed using protocols designed to limit radiation exposure to as low as reasonably achievable to attain images of sufficient resolution adequate for diagnostic evaluation.
--- NOTE | 2019-04-16 15:48 | NUR ---
NURSE NOTES: WOUND CARE NURSE BLAKE SEEN PT AND CHANGED ILEOSTOMY BAG. HOME SUPPLIES PROVIDED.
--- NOTE | 2019-04-16 15:57 | NUR ---
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 MALFUNCTION MARTINEZ POUCH * SMALL PLEURAL EFFUSION 99.5 93 18 139/71 94% ON 2L NC WBC 11.4 BG 166 IS:IV D5 KVO Q24HR DIFLUCAN PO QD IV TPN @24HR HEPARIN SQ BID IV PROTONIX DQ ADAM-HEX TP QD NOVOLOG SQ Q6HR IV D5@KVO Q24/PRN NYSTATIN PO QID MONISTAT VG QHS \: 3E MED SURG UNIT PLAN: STAT CT ABD+PEL WITH PO IV CONTRAST
[2019-04-16 15:58] VITALS: BP 170/81
--- NOTE | 2019-04-16 17:00 | NUR ---
NURSE NOTES: BP 170/[address] FREDERIC LEHMAN CALLED LEFT MESSAGE TO RETURN CALL.
[2019-04-16] MEDS: Piperacillin/Tazobactam 3.375 GM in NS 110 ML IVPB SCH (18:03)
--- NOTE | 2019-04-16 18:37 | Pulmonology Progress Note ---
Assessment/Plan Assessment/Plan IMPRESSION: 1. 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 2. History of pulmonary embolism. 3. History of IVC filter. None seen on imaging. 4. Chronic anticoagulation with Xarelto. 5. History of proctocolectomy. 6. Ulcerative colitis. 7. Bravo pouch with recent issues intubation. 8. History of left lung carcinoma, status post lobectomy. 9. History of recently diagnosed right lung carcinoma, scheduled for resection stage IB. 10. Bilatera lpleural effusions and fever; will diurese ; add abx DISCUSSION: S/p laparotomy She has chronic DVT L side I would recommend avoiding full anticoagulation given her complex abdominal surgery and only continue sub cut heparin. 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 She will be scheduled for right lung surgery after her current GI issues resolve, which is appropriate. Dk Summers M.D. Subjective Interval Events: Noted CT findings and low grade fever Constitutional: Reports: no symptoms HEENT: Repors: no symptoms Respiratory: Reports: dry cough Cardiovascular: Reports: no symptoms Gastrointestinal/Abdominal: Reports: no symptoms Allergies: Coded Allergies: No Known Allergies (Unverified , 04/03/19) Objective Last 24 Hour Vital Signs Date Time Temp Pulse Resp B/P (MAP) Pulse Ox O2 Delivery O2 Flow Rate FiO2 04/16/19 15:58 98.9 101 18 170/81 (110) 94 04/16/19 12:00 98.9 94 18 163/83 (109) 96 04/16/19 08:18 Room Air 04/16/19 08:00 98.9 97 18 160/92 (114) 94 04/16/19 04:00 99.5 93 18 139/71 (93) 94 93 04/15/19 21:00 Room Air 04/15/19 20:36 97 Room Air 21 04/15/19 20:00 98.8 102 18 145/76 (99) 94 102 Intake and Output 04/15/19 04/16/19 18:59 06:59 Intake Total 1994 ml 786 ml Output Total 1300 ml 1550 ml Balance 694 ml -764 ml Intake Oral 770 ml 240 ml IV Total 1224 ml 546 ml Output Urine Total 1000 ml 1400 ml Other 300 ml 150 ml # Voids 3 3 General Appearance: no acute distress HEENT: normocephalic Respiratory/Chest: chest wall non-tender Cardiovascular: normal peripheral pulses Abdomen: soft, non tender Laboratory Tests 04/16/19 05:05: White Blood Count 11.4H, Red Blood Count 4.12L, Hemoglobin 12.5, Hematocrit 36.7L, Mean Corpuscular Volume 89, Mean Corpuscular Hemoglobin 30.3, Mean Corpuscular Hemoglobin Concent 34.0, Red Cell Distribution Width 12.6, Platelet Count 206, Mean Platelet Volume 6.9, Neutrophils (%) (Auto) 70.5, Lymphocytes (% ) (Auto) 16.7L, Monocytes (%) (Auto) 7.8, Eosinophils (%) (Auto) 4.1H, Basophils (%) (Auto) 0.9, Sodium Level 142, Potassium Level 4.1, Chloride Level 107, Carbon Dioxide Level 23, Anion Gap 13, Blood Urea Nitrogen 15, Creatinine 0.6, Estimat Glomerular Filtration Rate > 60, Glucose Level 166H, Calcium Level 8.9, Phosphorus Level 3.2, Magnesium Level 1.9, Total Bilirubin 0.4, Aspartate Amino Transf (AST/SGOT) 22, Alanine Aminotransferase (ALT/SGPT) 30, Alkaline Phosphatase 140H, Total Protein 5.7L, Albumin 2.1L, Globulin 3.6, Albumin/ Globulin Ratio 0.6L 04/16/19 11:00: Urine Color Pale yellow, Urine Appearance Clear, Urine pH 7, Urine Specific [place] 1.010, Urine Protein Negative, Urine Glucose (UA) Negative, Urine Ketones Negative, Urine Blood 1+H, Urine Nitrite Negative, Urine Bilirubin Negative, Urine Urobilinogen Normal, Urine Leukocyte Esterase Negative, Urine RBC 0-2, Urine WBC 0-2, Urine Squamous Epithelial Cells Occasional, Urine Bacteria Occasional Current Medications Medications (Trade) Dose Ordered Sig/Jayshree Route PRN Reason Start Time Stop Time Status Last Admin Dose Admin Acetaminophen (Tylenol) 650 mg Q4H PRN ORAL Mild Pain/Temp > 100.2 04/08/19 15:30 05/08/19 15:29 04/15/19 16:34 Acetaminophen/ Hydrocodone Bitart ([place] 5/325) 1 tab Q4H PRN ORAL Moderate Pain (Pain Scale 4-6) 04/15/19 11:45 04/22/19 11:44 Al Hydroxide/Mg Hydroxide (Mylanta) 15 ml Q4H PRN ORAL Indigestion 04/10/19 09:00 05/10/19 08:59 04/10/19 14:44 Alprazolam (Xanax) 0.5 mg Q6H PRN ORAL For Anxiety 04/11/19 09:30 04/18/19 09:29 Barium Sulfate (Readi-Cat 2) 450 ml NOW PRN ORAL Radiology Procedure 04/16/19 10:30 04/18/19 10:21 Chlorhexidine Gluconate (Michelle-Hex 2%) 1 applic DAILY@2000 TOPIC 04/13/19 20:00 05/13/19 19:59 04/15/19 20:36 Dextrose 1,000 ml @ 0 mls/hr Q24H PRN IV PN interrupted or unavailable 04/05/19 20:00 05/05/19 19:59 04/07/19 20:23 Dextrose (Dextrose 50%) 25 ml Q30M PRN IV Hypoglycemia 04/07/19 00:00 05/07/19 00:00 Dextrose (Dextrose 50%) 50 ml Q30M PRN IV Hypoglycemia 04/07/19 00:00 05/07/19 00:00 Fat Emulsion Intravenous 192 ml/Amino Acids/ Electrolytes/ Dextrose 1,872 ml @ 78 mls/hr Q24H IV 04/07/19 20:00 05/07/19 19:59 04/15/19 20:32 Fluconazole (Diflucan) 100 mg DAILY ORAL 04/16/19 11:00 04/23/19 10:59 04/16/19 11:15 Heparin Sodium (Porcine) (Heparin 5000 units/ml) 5,000 units EVERY 12 HOURS SUBQ 04/04/19 10:15 05/04/19 10:14 04/16/19 09:04 Hydromorphone HCl (Dilaudid) 1 mg Q4H PRN SUBQ Severe Breakthru Pain (>7) 04/13/19 11:15 04/20/19 11:14 Insulin Aspart (NovoLOG) Q6HR SUBQ 04/07/19 00:00 05/07/19 00:00 04/16/19 18:06 Iohexol (OMNIPAQUE-300 100ml) 100 ml NOW PRN INJ Radiology Procedure 04/16/19 10:30 04/18/19 10:21 Lorazepam (Ativan) 1 mg HSPRN PRN SL Sleep 04/14/19 09:00 04/21/19 08:59 Lorazepam (Ativan) 1 mg Q4H PRN SL Muscle Spasm 04/14/19 11:30 04/21/19 11:29 Metoclopramide HCl (Reglan) 10 mg Q6H IVP 04/12/19 09:45 05/12/19 09:44 04/16/19 15:37 Miconazole Nitrate (Monistat) 1 applic BEDTIME VAGIN 04/16/19 11:00 05/16/19 10:59 04/16/19 11:16 Miconazole Nitrate (Monistat-Derm) 1 applic TWICE A DAY TOPIC 04/16/19 11:00 05/16/19 10:59 04/16/19 18:03 Nystatin (Nystatin) 5 ml QID ORAL 04/14/19 16:16 04/21/19 16:15 04/16/19 18:02 Ondansetron HCl (Zofran) 4 mg Q4H PRN IVP Nausea & Vomiting 04/08/19 15:30 05/08/19 15:29 04/12/19 20:22 Pantoprazole (Protonix) 40 mg DAILY IVP 04/11/19 09:00 05/11/19 08:59 04/16/19 08:55 Phytonadione (Vitamin K) 10 mg ONCE A WEEK SUBQ 04/13/19 09:00 05/13/19 08:59 04/13/19 08:51 Piperacillin Sod/ Tazobactam Sod 3.375 gm/Sodium Chloride 110 ml @ 27.5 mls/hr Q8HR IVPB 04/16/19 18:30 04/23/19 18:29 04/16/19 18:03 Dk Summers MD Apr 16, 2019 18:37
--- NOTE | 2019-04-16 18:52 | NUR ---
NURSE NOTES: PT REQUESTING FOSTER CATHETER AFTER LASIX GIVEN . DR NUNO NOTIFIED. ORDERED EXTERNAL CATHETER.([facility])
--- NOTE | 2019-04-16 19:00 | NUR ---
NURSE NOTES: EXTERNAL CATHETER (PURIWICK) APPLIED FOR VOIDING. WILL CONTINUE TO MONITOR I/O.
[2019-04-16 20:00] VITALS: BP 143/80
[2019-04-16] MEDS: Dyna-Hex 2% Top Sol 2oz TOPIC SCH (20:34)
[2019-04-16] MEDS: TPN IV SCH (20:38)
[2019-04-16] MEDS: FAT EMULSION 20% IV SCH (20:38)
[2019-04-17] VITALS (7 sets, daily range): BP systolic 114–138; BP diastolic 55–77
[2019-04-17] MEDS: Metoclopramide 10mg/2ml Inj IVP SCH ×4 (04:12→21:03)
[2019-04-17 06:06] LABS: BASOPHILS % (AUTO) 0.8 % (0.0-2.0); EOSINOPHILS % (AUTO) 4.1 % (0.0-3.0); HEMATOCRIT 33.6 % (37.0-47.0); HEMOGLOBIN 11.4 G/DL (12.0-16.0); LYMPHOCYTES % (AUTO) 18.9 % (20.0-45.0); MEAN CORPUSCULAR VOLUME 89 FL (80-99); MONOCYTES % (AUTO) 7.8 % (1.0-10.0); NEUTROPHILS % (AUTO) 68.5 % (45.0-75.0); PLATELET COUNT 181 K/UL (150-450); RED BLOOD COUNT 3.76 M/UL (4.20-5.40); WHITE BLOOD COUNT 10.3 K/UL (4.8-10.8)
[2019-04-17 06:33] LABS: ANION GAP 10 mmol/L (5-15); BLOOD UREA NITROGEN 15 mg/dL (7-18); CALCIUM 8.5 MG/DL (8.5-10.1); CARBON DIOXIDE 25 MMOL/L (21-32); CHLORIDE 106 MMOL/L (98-107); CREATININE 0.7 MG/DL (0.55-1.30); POTASSIUM 3.8 MMOL/L (3.5-5.1); SODIUM 141 MMOL/L (136-145)
[2019-04-17] MEDS: NovoLOG Insulin Flexpen SUBQ SCH ×4 (06:49→17:39)
[2019-04-17] MEDS: Piperacillin/Tazobactam 3.375 GM in NS 110 ML IVPB SCH ×3 (06:50→21:04)
--- NOTE | 2019-04-17 07:06 | NUR ---
Víctor Bartlett total urine output this shift 2675ml Total ileostomy output 600ml
--- NOTE | 2019-04-17 08:06 | NUR ---
NURSE NOTES: Received pt from EUSEBIO Panda. pt was resting comfortably no acute distress, no pain, PICC line site clean and dry, Puriwick was in place. will continue to monitor.
--- NOTE | 2019-04-17 09:16 | General Progress Note ---
Progress Note Progress Note Afebrile x 36 hours WBC now normal U/A - clear CT abd+pelvis: increased bilateral pleural effusions; 2 abd/pelvic fluid collections prob. post-op but cannot r/o evolving abscess No obstructions Started on Zosyn + diuresis per pulmonary Abdomen soft, distention resolved Upper pole incision with erythema - opened - no fluid but swabbed for C&S Urine 4175 (weearing external catheter Purewick) Ileostomy 1025 Imp: Infection ? source Plan: advance diet to [facility] low residue diet continue TPN until tolerating diet hopefully can transition to po antibiotics soon and plan discharge once eating f/u labs Blair York MD Apr 17, 2019 09:16
[2019-04-17] MEDS ORDERED: ALPRAZolam 0.5mg tab ORAL PRN (09:30)
[2019-04-17] MEDS: Pantoprazole Inj IVP SCH (09:30)
[2019-04-17] MEDS: Fluconazole 100mg tab ORAL SCH (09:31)
[2019-04-17] MEDS: Nystatin Susp 500,000 units/5ml ORAL SCH ×4 (09:31→20:58)
[2019-04-17] MEDS: Miconazole Vag Cr 45gm Tube (100mg per applicator) VAGIN SCH ×2 (09:32→21:01)
[2019-04-17] MEDS: Miconazole 2% Cr 15gm TOPIC SCH ×2 (09:33→17:40)
[2019-04-17] MEDS: Heparin 5000 units/ml inj SUBQ SCH ×2 (09:47→21:00)
--- NOTE | 2019-04-17 12:44 | Pulmonology Progress Note ---
Assessment/Plan Assessment/Plan IMPRESSION: 1. 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 2. History of pulmonary embolism. 3. History of IVC filter. None seen on imaging. 4. Chronic anticoagulation with Xarelto. 5. History of proctocolectomy. 6. Ulcerative colitis. 7. Bravo pouch with recent issues intubation. 8. History of left lung carcinoma, status post lobectomy. 9. History of recently diagnosed right lung carcinoma, scheduled for resection stage IB. 10. Bilateral pleural effusions and fever; now better after single dose Lasix ( diuresed 3L); no fever or leucocytosis today DISCUSSION: S/p laparotomy She has chronic DVT L side I would recommend avoiding full anticoagulation given her complex abdominal surgery and only continue sub cut heparin. 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 She will be scheduled for right lung surgery after her current GI issues resolve, which is appropriate. Dk Summers M.D. Subjective Interval Events: Looking and feeling better Constitutional: Reports: no symptoms HEENT: Repors: no symptoms Respiratory: Reports: no symptoms Cardiovascular: Reports: no symptoms Gastrointestinal/Abdominal: Reports: no symptoms Allergies: Coded Allergies: No Known Allergies (Unverified , 04/03/19) Objective Last 24 Hour Vital Signs Date Time Temp Pulse Resp B/P (MAP) Pulse Ox O2 Delivery O2 Flow Rate FiO2 04/17/19 12:00 98.0 96 18 127/68 (87) 96 04/17/19 08:13 Room Air 04/17/19 08:00 97.9 97 18 136/55 (82) 96 04/17/19 06:50 96 Room Air 21 04/17/19 04:00 98.3 95 18 127/77 (94) 96 04/17/19 00:00 97.8 101 16 130/67 (88) 95 04/16/19 21:00 Room Air 04/16/19 20:00 99.1 100 17 143/80 (101) 98 04/16/19 15:58 98.9 101 18 170/81 (110) 94 Intake and Output 04/16/19 04/17/19 19:00 07:00 Intake Total 1228 ml 1158 ml Output Total 2825 ml 3275 ml Balance -1597 ml -2117 ml Intake Oral 370 ml IV Total 858 ml 858 ml Other 300 ml Output Urine Total 2400 ml 2675 ml Other 425 ml 600 ml # Voids 8 General Appearance: no acute distress HEENT: normocephalic Respiratory/Chest: chest wall non-tender Cardiovascular: normal peripheral pulses Abdomen: normal bowel sounds, soft, non tender Microbiology Date/Time Source Procedure Growth Status 04/16/19 11:00 Urine,Clean Catch Urine Culture - Preliminary NO GROWTH AFTER 24 HOURS Resulted Laboratory Tests 04/17/19 04:30: White Blood Count 10.3, Red Blood Count 3.76L, Hemoglobin 11.4L, Hematocrit 33.6L, Mean Corpuscular Volume 89, Mean Corpuscular Hemoglobin 30.3, Mean Corpuscular Hemoglobin Concent 33.8, Red Cell Distribution Width 13.0, Platelet Count 181, Mean Platelet Volume 7.2, Neutrophils (%) (Auto) 68.5, Lymphocytes (% ) (Auto) 18.9L, Monocytes (%) (Auto) 7.8, Eosinophils (%) (Auto) 4.1H, Basophils (%) (Auto) 0.8, Sodium Level 141, Potassium Level 3.8, Chloride Level 106, Carbon Dioxide Level 25, Anion Gap 10, Blood Urea Nitrogen 15, Creatinine 0.7, Estimat Glomerular Filtration Rate > 60, Glucose Level 91, Calcium Level 8.5 Current Medications Medications (Trade) Dose Ordered Sig/Jayshree Route PRN Reason Start Time Stop Time Status Last Admin Dose Admin Acetaminophen (Tylenol) 650 mg Q4H PRN ORAL Mild Pain/Temp > 100.2 04/08/19 15:30 05/08/19 15:29 04/15/19 16:34 Acetaminophen/ Hydrocodone Bitart ([place] 5/325) 1 tab Q4H PRN ORAL Moderate Pain (Pain Scale 4-6) 04/15/19 11:45 04/22/19 11:44 Al Hydroxide/Mg Hydroxide (Mylanta) 15 ml Q4H PRN ORAL Indigestion 04/10/19 09:00 05/10/19 08:59 04/10/19 14:44 Alprazolam (Xanax) 0.5 mg Q6H PRN ORAL For Anxiety 04/17/19 09:30 04/24/19 09:29 Barium Sulfate (Readi-Cat 2) 450 ml NOW PRN ORAL Radiology Procedure 04/16/19 10:30 04/18/19 10:21 Chlorhexidine Gluconate (Michelle-Hex 2%) 1 applic DAILY@2000 TOPIC 04/13/19 20:00 05/13/19 19:59 04/16/19 20:34 Dextrose 1,000 ml @ 0 mls/hr Q24H PRN IV PN interrupted or unavailable 04/05/19 20:00 05/05/19 19:59 04/07/19 20:23 Dextrose (Dextrose 50%) 25 ml Q30M PRN IV Hypoglycemia 04/07/19 00:00 05/07/19 00:00 Dextrose (Dextrose 50%) 50 ml Q30M PRN IV Hypoglycemia 04/07/19 00:00 05/07/19 00:00 Fat Emulsion Intravenous 192 ml/Amino Acids/ Electrolytes/ Dextrose 1,872 ml @ 78 mls/hr Q24H IV 04/07/19 20:00 05/07/19 19:59 04/16/19 20:38 Fluconazole (Diflucan) 100 mg DAILY ORAL 04/16/19 11:00 04/23/19 10:59 04/17/19 09:31 Heparin Sodium (Porcine) (Heparin 5000 units/ml) 5,000 units EVERY 12 HOURS SUBQ 04/04/19 10:15 05/04/19 10:14 04/17/19 09:47 Hydromorphone HCl (Dilaudid) 1 mg Q4H PRN SUBQ Severe Breakthru Pain (>7) 04/13/19 11:15 04/20/19 11:14 Insulin Aspart (NovoLOG) Q6HR SUBQ 04/07/19 00:00 05/07/19 00:00 04/17/19 12:18 Iohexol (OMNIPAQUE-300 100ml) 100 ml NOW PRN INJ Radiology Procedure 04/16/19 10:30 04/18/19 10:21 Lorazepam (Ativan) 1 mg HSPRN PRN SL Sleep 04/14/19 09:00 04/21/19 08:59 Lorazepam (Ativan) 1 mg Q4H PRN SL Muscle Spasm 04/14/19 11:30 04/21/19 11:29 Metoclopramide HCl (Reglan) 10 mg Q6H IVP 04/12/19 09:45 05/12/19 09:44 04/17/19 09:34 Miconazole Nitrate (Monistat) 1 applic BEDTIME VAGIN 04/16/19 11:00 05/16/19 10:59 04/16/19 20:36 Miconazole Nitrate (Monistat-Derm) 1 applic TWICE A DAY TOPIC 04/16/19 11:00 05/16/19 10:59 04/17/19 09:33 Nystatin (Nystatin) 5 ml QID ORAL 04/14/19 16:16 04/21/19 16:15 04/17/19 12:15 Ondansetron HCl (Zofran) 4 mg Q4H PRN IVP Nausea & Vomiting 04/08/19 15:30 05/08/19 15:29 04/12/19 20:22 Pantoprazole (Protonix) 40 mg DAILY IVP 04/11/19 09:00 05/11/19 08:59 04/17/19 09:30 Phytonadione (Vitamin K) 10 mg ONCE A WEEK SUBQ 04/13/19 09:00 05/13/19 08:59 04/13/19 08:51 Piperacillin Sod/ Tazobactam Sod 3.375 gm/Sodium Chloride 110 ml @ 27.5 mls/hr Q8HR IVPB 04/16/19 18:30 04/23/19 18:29 04/17/19 06:50 Dk Summers MD Apr 17, 2019 12:44
[2019-04-17] MEDS ORDERED: NS 275ml ONE (16:04)
[2019-04-17] MEDS ORDERED: Tubing IV Secondary IV ONE (16:04)
--- NOTE | 2019-04-17 19:09 | NUR ---
HAND-OFF: Report given to EUSEBIO Duarte. pt is stable condition.
--- NOTE | 2019-04-17 19:55 | NUR ---
nurse's notes: received patient awake alert and oriented, denies any pain or distress; by the bedside for support; VSS, afebrile; plan of care discussed with patient and ; both verbalized understanding and agreement.
[2019-04-17] MEDS: Dyna-Hex 2% Top Sol 2oz TOPIC SCH (20:59)
[2019-04-17] MEDS: TPN IV SCH (21:01)
[2019-04-17] MEDS: FAT EMULSION 20% IV SCH (21:01)
[2019-04-18] MEDS: NovoLOG Insulin Flexpen SUBQ SCH ×4 (00:05→17:10)
[2019-04-18 04:00] VITALS: BP 117/67
[2019-04-18] MEDS: Metoclopramide 10mg/2ml Inj IVP SCH ×4 (04:32→20:52)
[2019-04-18] MEDS: Piperacillin/Tazobactam 3.375 GM in NS 110 ML IVPB SCH ×3 (05:36→21:25)
--- NOTE | 2019-04-18 06:55 | NUR ---
nurses notes: no falls, injuries or distress reported; total UOP this shift = 1000ml, total ileo output = 500. BS within normal limits at 0600. no c/o of pain or N/V
[2019-04-18 07:19] LABS: BASOPHILS % (AUTO) 1.2 % (0.0-2.0); EOSINOPHILS % (AUTO) 4.8 % (0.0-3.0); HEMATOCRIT 33.7 % (37.0-47.0); HEMOGLOBIN 11.4 G/DL (12.0-16.0); LYMPHOCYTES % (AUTO) 17.3 % (20.0-45.0); MEAN CORPUSCULAR VOLUME 89 FL (80-99); MONOCYTES % (AUTO) 6.8 % (1.0-10.0); NEUTROPHILS % (AUTO) 69.9 % (45.0-75.0); PLATELET COUNT 165 K/UL (150-450); RED CELL DISTRIBUTION WIDTH 12.6 % (11.6-14.8); WHITE BLOOD COUNT 9.2 K/UL (4.8-10.8)
[2019-04-18 07:32] LABS: ALANINE AMINOTRANSFERASE 25 U/L (12-78); ALBUMIN/GLOBULIN RATIO 0.7 (1.0-2.7); ALKALINE PHOSPHATASE 154 U/L (46-116); ANION GAP 7 mmol/L (5-15); ASPARTATE AMINO TRANSFERASE 25 U/L (15-37); BILIRUBIN,TOTAL 0.5 MG/DL (0.2-1.0); BLOOD UREA NITROGEN 16 mg/dL (7-18); CALCIUM 8.5 MG/DL (8.5-10.1); CARBON DIOXIDE 27 MMOL/L (21-32); CHLORIDE 108 MMOL/L (98-107); CREATININE 0.6 MG/DL (0.55-1.30); PHOSPHORUS 3.5 MG/DL (2.5-4.9); POTASSIUM 4.1 MMOL/L (3.5-5.1); SODIUM 142 MMOL/L (136-145)
--- NOTE | 2019-04-18 07:49 | NUR ---
NURSE NOTES: AWAKE/ALERT. NO C/O PAIN. IN NO APPARENT DISTRESS.
[2019-04-18 08:00] VITALS: BP 127/78
[2019-04-18] MEDS: Pantoprazole Inj IVP SCH (09:23)
[2019-04-18] MEDS: Miconazole 2% Cr 15gm TOPIC SCH ×2 (09:24→17:32)
[2019-04-18] MEDS: Fluconazole 100mg tab ORAL SCH (09:24)
[2019-04-18] MEDS: Heparin 5000 units/ml inj SUBQ SCH (09:24)
[2019-04-18] MEDS: Nystatin Susp 500,000 units/5ml ORAL SCH ×4 (09:24→20:51)
--- NOTE | 2019-04-18 10:08 | General Progress Note ---
Progress Note Progress Note continues afebrile, feels well now, tolerating BCIR low residue diet 75% abdomen soft, upper pole wound clean - C&S neg so far Urine 1600 Ileostomy 1250 watery WBC 9200 Hgb 11.4 chemistries all satisf but albumin 2.0 Imp: improved on Zosyn Plan: taper and d/c TPN today WOCN to change appliance and d/c yola/sutures and provide home supplies start Xarelto 20mg po daily every evening monitor I&O and labs - may need imodium ac+hs due to resection of Bravo pouch Blair York MD Apr 18, 2019 10:08
--- NOTE | 2019-04-18 10:38 | NUR ---
NURSE NOTES: rt leg circumference 38 cm. left leg 39 cm.
[2019-04-18 12:00] VITALS: BP 127/78
--- NOTE | 2019-04-18 13:45 | NUR ---
NURSE NOTES: ASSISTED OOB, AMBULATED OUT IN THE MOSS TOLERATED. IN NO DISTRESS.
--- NOTE | 2019-04-18 15:52 | Pulmonology Progress Note ---
Assessment/Plan Assessment/Plan IMPRESSION: 1. 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 2. History of pulmonary embolism. 3. History of IVC filter. None seen on imaging. 4. Chronic anticoagulation with Xarelto. 5. History of proctocolectomy. 6. Ulcerative colitis. 7. Bravo pouch with recent issues intubation. 8. History of left lung carcinoma, status post lobectomy. 9. History of recently diagnosed right lung carcinoma, scheduled for resection stage IB. 10. Bilateral pleural effusions and fever; now better after single dose Lasix ( diuresed 3L); no fever or leucocytosis today DISCUSSION: S/p laparotomy She has chronic DVT L side I would recommend avoiding full anticoagulation given her complex abdominal surgery and only continue sub cut heparin. Will begin Xarelto once she is cleared from surgery Noted UE DVT; PICC removed; Continue sub cut heparin I will follow as social director. She will be scheduled for right lung surgery after her current GI issues resolve, which is appropriate. Dk Summers M.D. Subjective Interval Events: none new Constitutional: Reports: no symptoms HEENT: Repors: no symptoms Respiratory: Reports: no symptoms Cardiovascular: Reports: no symptoms Allergies: Coded Allergies: No Known Allergies (Unverified , 04/03/19) Objective Last 24 Hour Vital Signs Date Time Temp Pulse Resp B/P (MAP) Pulse Ox O2 Delivery O2 Flow Rate FiO2 04/18/19 12:00 98.5 96 18 127/78 (94) 96 04/18/19 09:36 Room Air 04/18/19 08:00 98.3 103 18 127/78 (94) 94 04/18/19 04:00 98.7 97 17 117/67 (84) 95 04/17/19 23:57 99.1 93 16 138/69 (92) 96 04/17/19 21:00 Room Air 04/17/19 19:53 96.6 98 17 124/63 (83) 95 04/17/19 16:00 98.0 80 18 114/73 (87) 96 Intake and Output 04/17/19 04/18/19 19:00 07:00 Intake Total 1080 ml 1351.5 ml Output Total 1350 ml 1500 ml Balance -270 ml -148.5 ml IV Total 1151.5 ml Other 1080 ml 200 ml Output Urine Total 600 ml 1000 ml Other 750 ml 500 ml General Appearance: no acute distress HEENT: normocephalic Respiratory/Chest: chest wall non-tender Cardiovascular: normal peripheral pulses Abdomen: normal bowel sounds Microbiology Date/Time Source Procedure Growth Status 04/17/19 09:10 Other(Specify in comment) Gram Stain - Final Resulted 04/17/19 09:10 Other(Specify in comment) Wound Culture - Preliminary NO GROWTH Resulted 04/16/19 11:00 Urine,Clean Catch Urine Culture - Final NO GROWTH AFTER 48 HOURS Complete Laboratory Tests 04/18/19 05:30: White Blood Count 9.2, Red Blood Count 3.80L, Hemoglobin 11.4L, Hematocrit 33.7L , Mean Corpuscular Volume 89, Mean Corpuscular Hemoglobin 30.0, Mean Corpuscular Hemoglobin Concent 33.8, Red Cell Distribution Width 12.6, Platelet Count 165, Mean Platelet Volume 7.0, Neutrophils (%) (Auto) 69.9, Lymphocytes (% ) (Auto) 17.3L, Monocytes (%) (Auto) 6.8, Eosinophils (%) (Auto) 4.8H, Basophils (%) (Auto) 1.2, Sodium Level 142, Potassium Level 4.1, Chloride Level 108H, Carbon Dioxide Level 27, Anion Gap 7, Blood Urea Nitrogen 16, Creatinine 0.6, Estimat Glomerular Filtration Rate > 60, Glucose Level 96, Calcium Level 8.5, Phosphorus Level 3.5, Magnesium Level 1.9, Total Bilirubin 0.5, Aspartate Amino Transf (AST/SGOT) 25, Alanine Aminotransferase (ALT/SGPT) 25, Alkaline Phosphatase 154H, Total Protein 5.0L, Albumin 2.0L, Globulin 3.0, Albumin/ Globulin Ratio 0.7L Current Medications Medications (Trade) Dose Ordered Sig/Jayshree Route PRN Reason Start Time Stop Time Status Last Admin Dose Admin Acetaminophen (Tylenol) 650 mg Q4H PRN ORAL Mild Pain/Temp > 100.2 04/08/19 15:30 05/08/19 15:29 04/15/19 16:34 Acetaminophen/ Hydrocodone Bitart ([place] 5/325) 1 tab Q4H PRN ORAL Moderate Pain (Pain Scale 4-6) 04/15/19 11:45 04/22/19 11:44 Al Hydroxide/Mg Hydroxide (Mylanta) 15 ml Q4H PRN ORAL Indigestion 04/10/19 09:00 05/10/19 08:59 04/10/19 14:44 Alprazolam (Xanax) 0.5 mg Q6H PRN ORAL For Anxiety 04/17/19 09:30 04/24/19 09:29 Chlorhexidine Gluconate (Michelle-Hex 2%) 1 applic DAILY@2000 TOPIC 04/13/19 20:00 05/13/19 19:59 04/17/19 20:59 Dextrose 1,000 ml @ 0 mls/hr Q24H PRN IV PN interrupted or unavailable 04/05/19 20:00 04/18/19 19:59 04/07/19 20:23 Dextrose (Dextrose 50%) 25 ml Q30M PRN IV Hypoglycemia 04/07/19 00:00 05/07/19 00:00 Dextrose (Dextrose 50%) 50 ml Q30M PRN IV Hypoglycemia 04/07/19 00:00 05/07/19 00:00 Fat Emulsion Intravenous 192 ml/Amino Acids/ Electrolytes/ Dextrose 1,872 ml @ 78 mls/hr Q24H IV 04/07/19 20:00 04/18/19 19:59 04/17/19 21:01 Fluconazole (Diflucan) 100 mg DAILY ORAL 04/16/19 11:00 04/23/19 10:59 04/18/19 09:24 Hydromorphone HCl (Dilaudid) 1 mg Q4H PRN SUBQ Severe Breakthru Pain (>7) 04/13/19 11:15 04/20/19 11:14 Insulin Aspart (NovoLOG) Q6HR SUBQ 04/07/19 00:00 04/18/19 23:59 04/18/19 00:05 Lorazepam (Ativan) 1 mg HSPRN PRN SL Sleep 04/14/19 09:00 04/21/19 08:59 Lorazepam (Ativan) 1 mg Q4H PRN SL Muscle Spasm 04/14/19 11:30 04/21/19 11:29 Metoclopramide HCl (Reglan) 10 mg Q6H IVP 04/12/19 09:45 05/12/19 09:44 04/18/19 15:39 Miconazole Nitrate (Monistat) 1 applic BEDTIME VAGIN 04/16/19 11:00 05/16/19 10:59 04/17/19 21:01 Miconazole Nitrate (Monistat-Derm) 1 applic TWICE A DAY TOPIC 04/16/19 11:00 05/16/19 10:59 04/18/19 09:24 Nystatin (Nystatin) 5 ml QID ORAL 04/14/19 16:16 04/21/19 16:15 04/18/19 12:32 Ondansetron HCl (Zofran) 4 mg Q4H PRN IVP Nausea & Vomiting 04/08/19 15:30 05/08/19 15:29 04/12/19 20:22 Pantoprazole (Protonix) 40 mg DAILY IVP 04/11/19 09:00 05/11/19 08:59 04/18/19 09:23 Phytonadione (Vitamin K) 10 mg ONCE A WEEK SUBQ 04/13/19 09:00 04/18/19 19:59 04/13/19 08:51 Piperacillin Sod/ Tazobactam Sod 3.375 gm/Sodium Chloride 110 ml @ 27.5 mls/hr Q8HR IVPB 04/16/19 18:30 04/23/19 18:29 04/18/19 13:44 Rivaroxaban (Xarelto) 20 mg DAILY@2000 ORAL 04/18/19 20:00 05/18/19 19:59 Dk Summers MD Apr 18, 2019 15:52
[2019-04-18 16:00] VITALS: BP 127/78
--- NOTE | 2019-04-18 18:29 | NUR ---
NURSE NOTES: ileostomy out put 650cc liquidy and loose, dr kevin rosales notified. no new order. will continue to monitor pt.
--- NOTE | 2019-04-18 19:00 | NUR ---
NURSE NOTES: CONDITION STABLE . IN NO ACUTE DISTRESS.
--- NOTE | 2019-04-18 19:37 | NUR ---
HAND-OFF: Report given to S GLEN RN.
--- NOTE | 2019-04-18 19:38 | NUR ---
NURSE NOTES: Received repoorted from Shelly KAPLAN. Rounding is done with outgoing nurse. Patient is in bed, awake, and a/ox4. Denied any pain or distress at this time. Picc line is intact and patent. is at bedside. Madison ileo bag is intact in place. Dressing on abdomen is c/d/i. Bed is on alarm, locked, and lowest position. Call light within reach. Will continue to monitor.
[2019-04-18 20:00] VITALS: BP 132/68
[2019-04-18] MEDS: Dyna-Hex 2% Top Sol 2oz TOPIC SCH (20:51)
[2019-04-18] MEDS: Xarelto 10mg tab ORAL SCH (20:51)
[2019-04-18] MEDS: Miconazole Vag Cr 45gm Tube (100mg per applicator) VAGIN SCH (20:51)
[2019-04-19] VITALS: BP 127/67
[2019-04-19] MEDS: Metoclopramide 10mg/2ml Inj IVP SCH ×3 (03:41→15:52)
[2019-04-19 04:00] VITALS: BP 120/68
[2019-04-19] MEDS: Piperacillin/Tazobactam 3.375 GM in NS 110 ML IVPB SCH (05:38)
[2019-04-19 06:18] LABS: BASOPHILS % (AUTO) 0.9 % (0.0-2.0); HEMATOCRIT 35.2 % (37.0-47.0); HEMOGLOBIN 11.8 G/DL (12.0-16.0); LYMPHOCYTES % (AUTO) 17.4 % (20.0-45.0); MEAN CORPUSCULAR VOLUME 89 FL (80-99); MONOCYTES % (AUTO) 7.6 % (1.0-10.0); NEUTROPHILS % (AUTO) 70.1 % (45.0-75.0); PLATELET COUNT 167 K/UL (150-450); RED BLOOD COUNT 3.94 M/UL (4.20-5.40)
[2019-04-19 06:54] LABS: ANION GAP 8 mmol/L (5-15); BLOOD UREA NITROGEN 15 mg/dL (7-18); CALCIUM 8.8 MG/DL (8.5-10.1); CARBON DIOXIDE 27 MMOL/L (21-32); CHLORIDE 107 MMOL/L (98-107); CREATININE 0.7 MG/DL (0.55-1.30); POTASSIUM 4.1 MMOL/L (3.5-5.1); SODIUM 142 MMOL/L (136-145)
--- NOTE | 2019-04-19 07:50 | NUR ---
HAND-OFF: Report given to Deanna KAPLAN. Patient in stable condition.
--- NOTE | 2019-04-19 08:00 | NUR ---
NURSE NOTES: Received report from Liliane KAPLAN, pt a/a/o x4 laying in bed with no signs of distress or other issues at this time. Madison ileostomy draining well, total night shift supervisor out put: 400ml. total urine out put: 700ml. patient is able to ambulate with staff assistance. PICC line in place. call light within reach, bed in lowest position, side rales up x2. I will f/u as needed.
[2019-04-19] MEDS: Pantoprazole Inj IVP SCH (08:56)
[2019-04-19] MEDS: Nystatin Susp 500,000 units/5ml ORAL SCH ×4 (08:56→20:23)
[2019-04-19] MEDS: Fluconazole 100mg tab ORAL SCH (08:56)
[2019-04-19] MEDS: Miconazole 2% Cr 15gm TOPIC SCH ×2 (08:57→17:43)
--- NOTE | 2019-04-19 10:01 | General Progress Note ---
Progress Note Progress Note AVSS Doing well off TPN and IV fluids with low residue diet. Abdomen soft, upper pole wound small and erythema resolved, no drainage C&S yeast Abdomen soft, well healed, stoma stable I&O and labs okay Imp: Improved Plan: d/c Zosyn after today's doses then remove PICC WOCN re ileostomy education/supplies anticipate discharge in AM if remains stable continue pre-admission Blair Voss MD Apr 19, 2019 10:01
--- NOTE | 2019-04-19 10:55 | Pulmonology Progress Note ---
Assessment/Plan Assessment/Plan IMPRESSION: 1. 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 2. History of pulmonary embolism. 3. History of IVC filter. None seen on imaging. 4. Chronic anticoagulation with Xarelto. 5. History of proctocolectomy. 6. Ulcerative colitis. 7. Bravo pouch with recent issues intubation. 8. History of left lung carcinoma, status post lobectomy. 9. History of recently diagnosed right lung carcinoma, scheduled for resection stage IB. 10. Bilateral pleural effusions and fever; better after single dose Lasix ( diuresed 3L); no fever or leucocytosis DISCUSSION: S/p laparotomy She has chronic DVT L side I would recommend avoiding full anticoagulation given her complex abdominal surgery and only continue sub cut heparin. Will begin Xarelto once she is cleared from surgery Noted UE DVT; PICC removed; Continue sub cut heparin I will follow as organizational development director. She will be scheduled for right lung surgery after her current GI issues resolve, which is appropriate. Dk Summers M.D. Subjective Interval Events: None new Constitutional: Reports: no symptoms HEENT: Repors: no symptoms Respiratory: Reports: no symptoms Cardiovascular: Reports: no symptoms Gastrointestinal/Abdominal: Reports: no symptoms Allergies: Coded Allergies: No Known Allergies (Unverified , 04/03/19) Objective Last 24 Hour Vital Signs Date Time Temp Pulse Resp B/P (MAP) Pulse Ox O2 Delivery O2 Flow Rate FiO2 04/19/19 04:00 98.5 96 17 120/68 (85) 94 04/19/19 00:00 98.9 94 17 127/67 (87) 95 04/18/19 21:00 Room Air 04/18/19 20:00 98.6 92 15 132/68 (89) 94 04/18/19 16:00 98.5 96 18 127/78 (94) 96 04/18/19 12:00 98.5 96 18 127/78 (94) 96 Intake and Output 04/18/19 04/19/19 19:00 07:00 Intake Total 1326 ml 210.0 ml Output Total 1500 ml 1100 ml Balance -174 ml -890.0 ml Intake Oral 390 ml 100 ml IV Total 936 ml 110.0 ml Output Urine Total 850 ml 700 ml Other 650 ml 400 ml General Appearance: no acute distress HEENT: normocephalic Respiratory/Chest: chest wall non-tender, lungs clear Cardiovascular: normal peripheral pulses, normal rate Abdomen: normal bowel sounds Microbiology Date/Time Source Procedure Growth Status 04/17/19 09:10 Other(Specify in comment) Gram Stain - Final Complete 04/17/19 09:10 Wound Culture - Final Sabrina Albicans Complete 04/16/19 11:00 Urine,Clean Catch Urine Culture - Final NO GROWTH AFTER 48 HOURS Complete Laboratory Tests 04/19/19 05:30: White Blood Count 11.0H, Red Blood Count 3.94L, Hemoglobin 11.8L, Hematocrit 35.2L, Mean Corpuscular Volume 89, Mean Corpuscular Hemoglobin 30.0, Mean Corpuscular Hemoglobin Concent 33.6, Red Cell Distribution Width 13.0, Platelet Count 167, Mean Platelet Volume 6.7, Neutrophils (%) (Auto) 70.1, Lymphocytes (% ) (Auto) 17.4L, Monocytes (%) (Auto) 7.6, Eosinophils (%) (Auto) 4.0H, Basophils (%) (Auto) 0.9, Sodium Level 142, Potassium Level 4.1, Chloride Level 107, Carbon Dioxide Level 27, Anion Gap 8, Blood Urea Nitrogen 15, Creatinine 0.7, Estimat Glomerular Filtration Rate > 60, Glucose Level 97, Calcium Level 8.8 Current Medications Medications (Trade) Dose Ordered Sig/Jayshree Route PRN Reason Start Time Stop Time Status Last Admin Dose Admin Acetaminophen (Tylenol) 650 mg Q4H PRN ORAL Mild Pain/Temp > 100.2 04/08/19 15:30 05/08/19 15:29 04/15/19 16:34 Acetaminophen/ Hydrocodone Bitart ([place] 5/325) 1 tab Q4H PRN ORAL Moderate Pain (Pain Scale 4-6) 04/15/19 11:45 04/22/19 11:44 Al Hydroxide/Mg Hydroxide (Mylanta) 15 ml Q4H PRN ORAL Indigestion 04/10/19 09:00 05/10/19 08:59 04/10/19 14:44 Alprazolam (Xanax) 0.5 mg Q6H PRN ORAL For Anxiety 04/17/19 09:30 04/24/19 09:29 Chlorhexidine Gluconate (Michelle-Hex 2%) 1 applic DAILY@2000 TOPIC 04/13/19 20:00 05/13/19 19:59 04/18/19 20:51 Dextrose (Dextrose 50%) 25 ml Q30M PRN IV Hypoglycemia 04/07/19 00:00 05/07/19 00:00 Dextrose (Dextrose 50%) 50 ml Q30M PRN IV Hypoglycemia 04/07/19 00:00 05/07/19 00:00 Fluconazole (Diflucan) 100 mg DAILY ORAL 04/16/19 11:00 04/23/19 10:59 04/19/19 08:56 Hydromorphone HCl (Dilaudid) 1 mg Q4H PRN SUBQ Severe Breakthru Pain (>7) 04/13/19 11:15 04/20/19 11:14 Loperamide HCl (Imodium) 2 mg AC+HS PRN ORAL Diarrhea 04/19/19 10:00 05/19/19 09:59 Lorazepam (Ativan) 1 mg HSPRN PRN SL Sleep 04/14/19 09:00 04/21/19 08:59 Lorazepam (Ativan) 1 mg Q4H PRN SL Muscle Spasm 04/14/19 11:30 04/21/19 11:29 Metoclopramide HCl (Reglan) 10 mg Q6H IVP 04/12/19 09:45 05/12/19 09:44 04/19/19 09:00 Miconazole Nitrate (Monistat) 1 applic BEDTIME VAGIN 04/16/19 11:00 05/16/19 10:59 04/18/19 20:51 Miconazole Nitrate (Monistat-Derm) 1 applic TWICE A DAY TOPIC 04/16/19 11:00 05/16/19 10:59 04/19/19 08:57 Nystatin (Nystatin) 5 ml QID ORAL 04/14/19 16:16 04/21/19 16:15 04/19/19 08:56 Ondansetron HCl (Zofran) 4 mg Q4H PRN IVP Nausea & Vomiting 04/08/19 15:30 05/08/19 15:29 04/12/19 20:22 Pantoprazole (Protonix) 40 mg DAILY IVP 04/11/19 09:00 05/11/19 08:59 04/19/19 08:56 Rivaroxaban (Xarelto) 20 mg DAILY@1999 ORAL 04/18/19 20:00 05/18/19 19:59 04/18/19 20:51 Dk Summers MD Apr 19, 2019 10:55
[2019-04-19 11:59] VITALS: BP 155/84
--- NOTE | 2019-04-19 13:00 | NUR ---
NURSE NOTES: PICC line removed as MD ordered. initial VS: 98.2, 128/67, 87. pt was able to tolerate procedure well with no signs of symptoms of distress or other issues at this time. pos VS: 126/66, 96. I will f/u as needed
--- NOTE | 2019-04-19 13:15 | NUR ---
NURSE NOTES: relationship specialist at bed side. she will remove yola today and will change Madison ileostomy bag tomorrow morning since the patient will be discharge tomorrow at 12:00. I will f/u as needed.
--- NOTE | 2019-04-19 13:35 | NUR ---
RD ASSESSMENT & RECOMMENDATIONS SEE CARE ACTIVITY FOR COMPLETE ASSESSMENT DAILY ESTIMATED NEEDS: Needs based on Surgery 60.5kg adj 25-35 kcals/kg 2908-7239 total kcals 1-2 g protein/kg 61-121 g total protein 25-30 mL/kg 6304-4072 total fluid mLs NUTRITION DIAGNOSIS: Altered GI fxn related BCIR slipped valve as evidenced by s/p endoscopy, findings of dessusception of nipple valve, now s/p BCIR takedown w/ creation of guillaume ileo, now off TPN , diet now advanced from clear liquid diet to BCIR low fiber/ low residue PO DIET RECOMMENDATIONS: Advance diet per MD -> SOFT ADDITIONAL RECOMMENDATIONS: 1) Obtain a standing weight as able 2) Monitor tolerance to upgraded diet . .
--- NOTE | 2019-04-19 14:00 | NUR ---
NURSE NOTES:OSTOMY CARE NOTES:Hung to midline and lower abdominal incisions removed as per Dr York's orders. Incision lower abd well approximated. Small area of dehiscence0.7cm noted at proximal end of midline incision. No erythema elevation in skin temp or exudate noted. Steri-strips x2 applied. Midline abdominal incision is otherwise well approximated. Pt pending discharge in a.m and willl perform ostomy care with pt prior to discharge.
[2019-04-19 16:00] VITALS: BP 129/79
--- NOTE | 2019-04-19 16:23 | NUR ---
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 MALFUNCTION MARTINEZ POUCH * SMALL PLEURAL EFFUSION 99.5 93 18 139/71 94% ON 2L NC WBC 11.4 BG 166 IS:IV D5 KVO Q24HR DIFLUCAN PO QD HEPARIN SQ BID IV PROTONIX DQ ADAM-HEX TP QD NOVOLOG SQ Q6HR IV D5@KVO Q24/PRN NYSTATIN PO QID MONISTAT VG QHS \: 3E MED SURG UNIT PLAN: DC IN AM
--- NOTE | 2019-04-19 19:15 | NUR ---
NURSE NOTES: Received report from EUSEBIO Huerta. Pt is awake, lying semi-raygoza's; comfortably resting. at bedside. No signs of acute distress noted. Pt denies any pain at this time. AOx4; able to make needs known. No IV site noted. No erythema, bleeding, or infiltration noted. Bed at lowest position. Brakes on. Siderails up x2. Call light within reach. Will continue to monitor.
--- NOTE | 2019-04-19 19:21 | NUR ---
HAND-OFF: Report given to Felicita KAPLAN, pt in stable position. During my shift: - pt was able to ambulate around the room with steady gait and the use of the FWW. - Removal Of PICC line. - Removal of yola and dressing change was done. - Rashid emr implementation specialist will change [place] ileostomy bag tomorrow morning prior to d/c. - supplies were given to patient to take home however vector control specialist will bring more tomorrow prior to d/c. - incoming nurse is aware that pt would like to shower prior to d/c. I&O Ileostomy: 550ml urine:700ml oral intake: pt able to tolerate BCIR diet at 100% with no n/v.
[2019-04-19 20:00] VITALS: BP 115/61
[2019-04-19] MEDS: Xarelto 10mg tab ORAL SCH (20:23)
[2019-04-19] MEDS: Miconazole Vag Cr 45gm Tube (100mg per applicator) VAGIN SCH (20:23)
--- NOTE | 2019-04-20 07:30 | NUR ---
NURSE NOTES: awake/alert. no pain. in no distress.
--- NOTE | 2019-04-20 07:43 | NUR ---
NURSE NOTES: AWAKE/ALERT. NO C/O PAIN. IN NO DISTRESS
--- NOTE | 2019-04-20 07:59 | NUR ---
HAND-OFF: Report given to EUSEBIO Bravo. Pt is awake and in stable condition. Plan of care endorsed.
[2019-04-20 08:00] VITALS: BP 133/89
--- NOTE | 2019-04-20 08:29 | General Progress Note ---
Progress Note Progress Note Doing well off TPN and IV fluids, eating well now no GI symptoms. Independent in ileostomy care ABdomen soft, well healed Urine 995 Ileostomy 900 Imp: Stable for discharge with full supplies/instructions/limitations reviewed f/u office 04/23 to monitor urine color/volume and ileostomy volume/consistency and to take Imodium ac+hs Blair Rich MD Apr 20, 2019 08:29
--- NOTE | 2019-04-20 08:30 | NUR ---
NURSE NOTES: AWAKE/ALERT. NO CO PAIN. IN NO DISTRESS. NURSE NOTES: ASSISTED WITH SHOWER. CHRISTINA MARCN CHANGED ILEOSTOMY BAG. INSTRUCTIONS GIVE TO PT AND . ILEOSTOMY SUPPLIES PROVIDED.
[2019-04-20] MEDS: Fluconazole 100mg tab ORAL SCH (08:33)
[2019-04-20] MEDS: Miconazole 2% Cr 15gm TOPIC SCH (08:33)
[2019-04-20] MEDS: Nystatin Susp 500,000 units/5ml ORAL SCH (08:33)
--- NOTE | 2019-04-20 09:32 | NUR ---
NURSE NOTES: RT LEG CIRCUMFERENCE 36.5CM,LEFT LEG 38CM.
--- NOTE | 2019-04-20 10:30 | NUR ---
NURSE NOTES:OSTOMY CARE NOTES:Met with pt and spouse prior to discharge. Pt requested this nurse change Ileostomy and to review step by step instructions with pt. Reviewed with pt and her Spouse step by step instructions during removal and application of new appliance. Ileostomy functioning well. Moderate amt semi-liquid to soft effluent noted in pouch. Stoma of R ileostomy moderately protrudes and budded. Stoma is shiny,beefy-red and smaller in size. Stoma now measures at 1 1/8 inch. Peristomal skin is intact and pink. Reviewed with Pt and Spouse peristomal care. Instructed to use mild base soap for cleansing. Instructed to gently pat dry then applying Skin Barrier wipes before applying Zenia's ring around stoma. Instructed on application of Stomahesive Paste. Demonstrated to pt and spouse amt of Stomahesive paste to apply then application of Wafer then securing Pouch in place. Pt stated she felt confident she will be able to perform Ileostomy care on her own as she had an Ileostomy in past. Pt expressed anxiety being on flight ofr over 5 hours . Community Health Representative rings secured around wafer. Pt provided with Incontinence Briefs.All questions and concerns addressed with pt and spouse.
--- NOTE | 2019-04-20 11:05 | NUR ---
NURSE NOTES: DISCHARGED HOME PER WHEELCHAIR ACCPD BY IN STABLE CONDITION. DC INSTRUCTIONS GIVEN.
--- NOTE | 2019-04-22 08:51 | Discharge Summary ---
Discharge Summary Hospital Course Date of Admission Apr 03, 2019 at 23:02 Date of Discharge Apr 20, 2019 at 11:05 Admitting Diagnosis malfunctioning Bravo pouch Reason for Hospitalization: elective surgery HPI Nolvia Guajardo is a 78 year old female , who was admitted on Apr 03, 2019 at 23 :02 for Malfunctioning Bravo Pouch Patient admitted with a malfunctioning Bravo continent ileostomy and inability to intubate her pouch to evacuate stool. The patient in overall stable health, who had an original diagnosis of ulcerative colitis and many years ago underwent proctocolectomy and then creation of a Bravo continent ileostomy. The patient usually intubates her pouch two to three times a day using a 30- [place] Ann catheter. She has had rare episodes of pouchitis treated with Cipro or Flagyl. In the past week, the patient had sudden inability to catheterize her pouch. She required admission locally where she lives in [place], underwent two pouch endoscopies and finally a 24-[place] red Wood catheter was inserted and taped in place. She then came here on an emergency basis because there was no treating physician near her with expertise in the Bravo continent ileostomy procedure. The patient had gone several days without being able to catheterize and during that time she has had some incontinence of stool and gas. Patient with history of non-small cell carcinoma left lung and left upper lobectomy in 2014 Patient was recently diagnosed with right upper lobe lung carcinoma, stage IB. Patitn was admitted fro further evaluation and management, likely surgical intervention. Consultations Dr Summers IM /pulmo Procedures s/p 04/05/[address] Jaylen Bravo continent ileostomy pouch endoscopy s/p 04/08/[address] York Laparotomy with resection of Bravo continent ileostomy and creation of [place] ileostomy. Hospital Course patient admitted with a malfunctioning Bravo continent ileostomy patient was recently diagnosed with right upper lobe lung carcinoma stage Ib patient was prepared for Bravo pouch endoscopy catheter was placed to continuous gravity drainage with flush every 3 hours and as needed sporting goods sales manager followed, given her lung condition and anticoagulation Xarelto was last taken 4 days ago, and was held due to pending surgery ( patient was on Xarelto given history of DVT left leg and IVC filter 10 years ago ) patient received DVT prophylaxis with heparin patient started on clear liquid diet. patient subsequently undergone Bravo pouch endoscopy on with finings of intussusception of valve continuous drainage of catheter was maintained patient started on TPN , given malnutrition present on admission/Albumin 2.[address] scan of the abdomen and pelvis with p.o. and IV contrast , which revealed normal small bowel, pouch deep in pelvis no IVC filter, only left iliofemoral venous stents anemia work-up revealed low ferritin 44 patient started on IV Venofer TPN continued patient started on bowel preparation patient had recurrent issues of Bravo pouch malfunctioning and decided on resection with creation of [place] ileostomy instead of revision in view of need for lung cancer surgery and chemotherapy and risk of the recurrent Bravo pouch malfunctioning patient subsequently undergone 04/08 laparotomy with resection of Bravo continent ileostomy and creation of [place] ileostomy postoperatively pain management was addressed with Dilaudid RESOURCE SPECIALIST TEACHER with basal rate and on demand dosing patient initially had some bleeding from medial ileostomy stoma , which stopped soon laboratory work-up was closely monitored N.p.o. status continued TPN , Horne and RESOURCE SPECIALIST TEACHER continued ostomy nurse evaluation was requested regarding new ileostomy care patient was mobilized as tolerated basal rate of RESOURCE SPECIALIST TEACHER was discontinued on 04/10 IV fluid rate was increased , TPN continued patient was ambulated DVT prophylaxis with subcutaneous heparin continued intake and output were closely monitored antiemetic provided as needed , including Reglan [id number], transdermal scopolamine patch and Zofran as needed patient noted to have a swelling of the left arm where a PICC line was venous duplex left upper extremity was positive for left basilic venous thrombus , surrounding PICC line PICC line was discontinued patient had a placement of a new PICC line to the right arm under sonographic fluoroscopic guidance. sporting goods sales manager recommended avoid full anticoagulation and continue with heparin subcutaneously until cleared from a surgical standpoint N.p.o. status and TPN continued Horne catheter was discontinued on 04/14 ileus was eventually resolving RESOURCE SPECIALIST TEACHER and IV fluids were discontinued on 04/15 patient started on clear liquid diet on 04/16 patient had low-grade fever she tolerated clear liquid diet 50% she also complained of vaginal itching and rash patient undergone stat CT scan of the abdomen and pelvis with p.o. and IV contrast as well as started on Diflucan daily and topical nystatin urinalysis and urine culture were obtained, and were unremarkable CT scan of the abdomen and pelvis revealed 5.1 x 4.8 x 5.5 cm rim-enhancing pelvic fluid collection; most likely routine postoperative fluid, but abscess was also possible no obstruction patient started on empiric antibiotics as per sporting goods sales manager and received one dose of IV Lasix intake and output and labs were closely monitored patient was afebrile, leukocytosis resolved diet was advanced to BCIR low residue diet TPN continued until she fully tolerated diet patient continued to be afebrile, was feeling better , and tolerated 75% of low residue BCIR diet. ostomy nurse changed appliance, instructed on ostomy care at home sutures were discontinued home and supplies provided on 04/18 patient restarted on Xarelto antibiotics stopped and PICC line was discontinued on 04/19 wound care nurse reinforced ileostomy education patient subsequently was stable for discharge full supplies/instructions/limitations reviewed patient to follow-up in the office on 04/23. patient was instructed to monitor urine color/volume and ileostomy volumes/ consistently , take Imodium as needed FINAL DIAGNOSES 1. Malfunctioning Bravo continent ileostomy with inability to catheterize resulting in bowel obstruction. 2. History of ulcerative colitis. 3. 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 4. History of ulcerative colitis. 5. Urinary tract infection on admission . 6. Status post left total knee replacement. 7. STATUS POST MULTIPLE ABDOMINAL OPERATIONS: 1. Abdominal colectomy and [place] ileostomy and total abdominal hysterectomy in 1983. 2. Abdominoperineal proctectomy in 1985. 3. Bravo continent ileostomy in 1993. 8. History of non-small cell carcinoma left lung and left upper lobectomy 2014 9. Recent diagnosis of right upper lobe lung carcinoma, stage IB. 10.Malfunctioning Bravo Pouch with slipped valve 11. Malnutrition 12. Iron deficiency anemia 13. s/p Laparotomy with resection of Bravo continent ileostomy and creation of [place] ileostomy 04/08/2019 14. Persistent ileus -resolved Discharge Medications Continued Medications: Rivaroxaban (Xarelto*) 10 Mg Tablet 20 MG ORAL DAILY for blood thinner, #30 TAB 0 Refills (This prescription has been renewed) Discharge Condition Upon Discharge: stable Discharge Vital Signs Last Vital Signs Date Time Temp Pulse Resp B/P (MAP) Pulse Ox O2 Delivery O2 Flow Rate FiO2 04/20/19 09:16 Room Air 04/20/19 08:00 98.2 104 20 133/89 (104) 97 04/17/19 06:50 21 04/14/19 07:52 2.0 Discharge Disposition Patient was discharged home. Discharge Instructions Discharge Instructions Special Instructions I have been assigned to complete a D/C Summary on this account. I was not involved in the patient management Sigrid Palmer NP Apr 22, 2019 08:51
== END 2019-04-20 11:05 | disposition home or self-care (01) | DRG 330 ==
LOC: EMR 22:18 → 3E 23:02 → EDBEDREQ 23:07
PROC: 0DJD8ZZ Inspection of Lower Intestinal Tract, Via Natural or Artificial Opening Endoscopic (ICD-10-PCS; principal; 2019-04-05 13:53)
PROC: 0DBB0ZZ Excision of Ileum, Open Approach (ICD-10-PCS; 2019-04-08)
PROC: 0D1B0Z4 Bypass Ileum to Cutaneous, Open Approach (ICD-10-PCS; 2019-04-08)
PROC: 02HV33Z Insertion of Infusion Device into Superior Vena Cava, Percutaneous Approach (ICD-10-PCS; 2019-04-13)
PROC: B518ZZA Fluoroscopy of Superior Vena Cava, Guidance (ICD-10-PCS; 2019-04-13)
DX: K94.13 Enterostomy malfunction (principal); N39.0 Urinary tract infection, site not specified; K51.90 Ulcerative colitis, unspecified, without complications; E46 Unspecified protein-calorie malnutrition; I82.502 Chronic embolism and thrombosis of unspecified deep veins of left lower extremity; J90 Pleural effusion, not elsewhere classified; I82.433 Acute embolism and thrombosis of popliteal vein, bilateral; C34.11 Malignant neoplasm of upper lobe, right bronchus or lung; K56.7 Ileus, unspecified; J98.11 Atelectasis; I82.622 Acute embolism and thrombosis of deep veins of left upper extremity; Z68.26 Body mass index [BMI] 26.0-26.9, adult; R15.9 Full incontinence of feces; Z79.01 Long term (current) use of anticoagulants; Z96.652 Presence of left artificial knee joint; Z86.718 Personal history of other venous thrombosis and embolism; Z86.711 Personal history of pulmonary embolism; R11.10 Vomiting, unspecified; K94.11 Enterostomy hemorrhage; D50.9 Iron deficiency anemia, unspecified
CPT/HCPCS: 36415; 36569; 71046; 74177; 76937; 80048; 80053; 81001; 81003; 82607; 82728; 82746; 82962; 83540; 83550; 83690; 83735; 84100; 85007; 85025; 85610; 85730; 86850; 86900; 86901; 87070; 87086; 87205; 93005; 93931; 93970; 94003; 94150; 96365; 99285; J1815; J2250; J2405; J2710; J2765; J7030